=== PATIENT | female | born 2000 | race Caucasian/White ===

== ENCOUNTER 2024-03-30 17:06 | Observation (INO) | payer SELFPAY ==
[2024-03-30 17:30] VITALS: BP 115/78; PULSE 99; RESP 14; TEMP 37.1; O2SAT 100
--- OUTSIDE RECORDS SUMMARY | 2024-03-30 17:36 | XMS_ITS | Encounter Summary ---
Author Organization [facility] Address [address] [place] [address] Care Team Providers Care Science Education Professor Name Role Phone Montse Montiel MASTER BREWER Primary Care Provider [phone] Radha Griffin APRN Unavailable [phone] Rosalva Dize MD Unavailable [phone] Encounter Details Date Type Department Care Team (Latest Contact Info) Description 03/15/2022 Travel Social History Tobacco Use Types Packs/Day Years Used Date Smoking Tobacco: Never Smokeless Tobacco: Never Alcohol Use Standard Drinks/Week Comments Never 0 (1 standard drink = 0.6 oz pur e alcohol) Sex and Gender Information Value Date Recorded Sex Assigned at Not on file Gender Identity Not on file Sexual Orientation Not on file documented as of this encounter Plan of Treatment Not on file documented as of this encounter Visit Diagnoses Not on filedocumented in this encounter Care Teams Science Education Professor Relationship Specialty Start Date End Date Montse Montiel APRN [address] [place] [address] PCP - General Nurse Practitioner 02/06/22 Radha Griffin APRN [address] [place] [address] [place] [address] [place] [address] Nurse Practitioner Gastroenterology 02/06/22 Rosalva Diez MD [address] [place] [address] Gastroenterology 03/13/22 documented as of this encounter
--- OUTSIDE RECORDS SUMMARY | 2024-03-30 17:36 | XMS_ITS | Referral Summary ---
Author Organization [facility] Address [address] [place] [address] Care Team Providers Care Receiving Weigher Name Role Phone Montse Montiel KRYS Primary Care Provider [phone] Radha Griffin APRN Unavailable [phone] Rosalva Diez MD Unavailable [phone] Allergies No known active allergies Medications Medication Sig Dispensed Refills Start Date End Date Status ISIBLOOM 0.15-0.03 mg Tab TAKE 1 TABLET BY MOUTH EVERY DAY 05/26/2021 Active desvenlafaxine 50 mg Tb24 Take 50 mg by mouth Once Daily. Active traZODone (DESYREL) 50 mg tablet Take 50 mg by mouth Once Daily. Active Active Problems Problem Noted Date Diagnosed Date Nausea 02/06/2022 Overview (02/06/2022): Added automatically from request for surgery [id number] Upper abdominal pain 02/06/2022 Overview (02/06/2022): Added automatically from request for surgery [id number] Social History Tobacco Use Types Packs/Day Years Used Date Smoking Tobacco: Never Smokeless Tobacco: Never Alcohol Use Standard Drinks/Week Comments Never 0 (1 standard drink = 0.6 oz pur e alcohol) Sex and Gender Information Value Date Recorded Sex Assigned at Not on file Gender Identity Not on file Sexual Orientation Not on file Last Filed Vital Signs Vital Sign Reading Time Taken Comments Blood Pressure 118/82 10/11/2022 3:21 PM EDT Pulse 119 10/11/2022 3:21 PM EDT Temperature 36.9 ??C (98.4 ??F) 03/15/2022 11:08 AM E DT Respiratory Rate 18 10/11/2022 3:21 PM EDT Oxygen Saturation 100% 03/15/2022 2:15 PM EDT Inhaled Oxygen Concentration - - Weight 72.6 kg (160 lb) 10/11/2022 3:21 PM EDT Height 172.7 cm (5' 8 ) 10/11/2022 3:21 PM EDT Body Mass Index 24.33 10/11/2022 3:21 PM EDT Plan of Treatment Not on file Advance Directives * Full Code (Latest Code Status on File) Date Activated Date Inactivated Comments 03/12/2022 8:10 AM 03/12/2022 1:32 PM Care Teams Receiving Weigher Relationship Specialty Start Date End Date Montse Montiel APRN [address] [place] [address] PCP - General Nurse Practitioner 02/06/22 Radha Griffin APRN [address] [place] [address] [place] [address] [address] [place] [address] Nurse Practitioner Gastroenterology 02/06/22 Rosalva Diez MD [address] [place] [address] [address] [place] [address] Gastroenterology 03/13/22
--- OUTSIDE RECORDS SUMMARY | 2024-03-30 17:36 | XMS_ITS | Encounter Summary ---
Author Organization [facility] Address [address] [place] [id number] Care Team Providers Care Casket Assembler Name Role Phone Montse Montiel KRYS Primary Care Provider Radha Griffin APRN Unavailable [phone] Rosalva Diez MD Unavailable [phone] Reason for Referral * Diagnostic Testing (Routine) - Authorized Specialty Diagnoses / Procedures Referred By Contac t Referred To Contact Cardiology Diagnoses Syncope and collapse Procedures Tilt Table Study Courtney De La Vega DO [facility] [place] [address] [facility] Noninvasive Card [address] [place] [address] Referral ID Status Reason Start Date Expiration Date V isits Requested Visits Authorized [id number] Authorized 10/18/2023 10/17/2024 1 1 Encounter Details Date Type Department Care Team (Late st Contact Info) Description 10/18/2023 Transcribe Orders Centralized Scheduling [address] [place] [address] Courtney De La Vega DO [address] [place] [address] Syncope and collapse (Primary Dx) Social History Tobacco Use Types Packs/Day Years Used Date Smoking Tobacco: Never Smokeless Tobacco: Never Alcohol Use Standard Drinks/Week Comments Never 0 (1 standard drink = 0.6 oz pur e alcohol) Sex and Gender Information Value Date Recorded Sex Assigned at Not on file Gender Identity Not on file Sexual Orientation Not on file documented as of this encounter Plan of Treatment Scheduled Orders Name Type Priority Associated Diagnoses Orde r Schedule Tilt Table Study Non-invasive cardiology Routine Syncope and collapse 1 Occurrences starting 10/18/2023 until 10/17/2024 documented as of this encounter Visit Diagnoses Diagnosis Syncope and collapse- Primary documented in this encounter Care Teams Casket Assembler Relationship Specialty Start Date End Date Montse Montiel APRN [address] [place] [address] PCP - General Nurse Practitioner 02/06/22 Radha Griffin APRN [address] [place] [address] [place] [address] Nurse Practitioner Gastroenterology 02/06/22 Rosalva Diez MD [address] [place] [address] [address] [place], [place] [id number] Gastroenterology 03/13/22 documented as of this encounter
--- OUTSIDE RECORDS SUMMARY | 2024-03-30 17:36 | XMS_ITS | Clinical Summary ---
Author Organization [facility] Address [address] [place] [address] Care Team Providers Care Mercantile Reporter Name Role Phone Montse Montiel KRYS Primary Care Provider [phone] Radha Griffin APRN Unavailable [phone] Rosalva Diez MD Unavailable [phone] Allergies No known active allergies Medications Medication [...] (02/06/2022): Added automatically from request for surgery [id number] Upper abdominal pain 02/06/2022 Overview (02/06/2022): Added automatically from request for surgery [id number] Social History Tobacco Use Types Packs/Day Years [...] 10/11/2022 3:21 PM EDT Plan of Treatment Health Maintenance Due Date Last Done Comments CHLAMYDIA SCREEN 1999 HEP C SCREENING 1999 PAP SMEAR EVERY 3 YR (Cervic al Cancer Screen) 1999 ANNUAL WELLNESS EXAM 08/25/2002 DTAP/TDAP/TD VACCINE (1 - Tdap) 08/25/2018 INFLUENZA VACCINE (#1) 2024 HEP A VACCINE Aged Out No longer elig ible based on patient's age to complete this topic HIB VACCINE Aged Out No longer eligi ble based on patient's age to complete this topic ROTOVIRUS VACCINE Aged Out No longer eligible based on patient's age to complete this topic Advance Directives * Full Code (Latest Code Status on File) Date Activated Date Inactivated Comments 03/12/2022 8:10 AM 03/12/2022 1:32 PM Care Teams Mercantile Reporter Relationship Specialty Start Date End Date Montse Montiel APRN [address] [place] [address] PCP - General Nurse Practitioner 02/06/22 Radha Griffin APRN [address] [place] [address] [address] [facility] [address] [place] [address] Nurse Practitioner Gastroenterology 02/06/22 Rosalva Diez MD [address] [place] [address] [place] [address] Gastroenterology 03/13/22
--- OUTSIDE RECORDS SUMMARY | 2024-03-30 17:36 | XMS_ITS | Encounter Summary ---
Author Organization [facility] Address [address] [place] [address] Care Team Providers Care Collaborative Teacher Name Role Phone Montse Montiel KRYS Primary Care Provider [phone] Radha Griffin APRN Unavailable [phone] Rosalva Diez MD Unavailable [phone] Reason for Visit * Reason Comments Follow-up Encounter Details Date Type Department Care Team (Late st Contact Info) Description 04/10/2022 2:00 PM EST Office Visit [facility] [address] [place] [address], [address] [place] [phone] Rosalva Diez MD [address] [place] [address] Nausea (Primary Dx); Upper abdominal pain; Chronic idiopathic constipation Social History Tobacco Use Types Packs/Day Years Used Date Smoking Tobacco: Never Smokeless Tobacco: Never Alcohol Use Standard Drinks/Week Comments Never 0 (1 standard drink = 0.6 oz pur e alcohol) Sex and Gender Information Value Date Recorded Sex Assigned at Not on file Gender Identity Not on file Sexual Orientation Not on file documented as of this encounter Last Filed Vital Signs Vital Sign Reading Time Taken Comments Blood Pressure 109/79 04/10/2022 2:49 PM EST Pulse 105 04/10/2022 2:49 PM EST Temperature - - Respiratory Rate - - Oxygen Saturation - - Inhaled Oxygen Concentration - - Weight 67.6 kg (149 lb) 04/10/2022 2:49 PM EST Height 172.7 cm (5' 8 ) 04/10/2022 2:49 PM EST Body Mass Index 22.66 04/10/2022 2:49 PM EST documented in this encounter Progress Notes * Rosalva Diez MD - 04/10/2022 2:00 PM EST Subjective: Patient ID: Lupe Cedeño is an 21 y.o. female. Chief Complaint: Chief Complaint Patient presents with ??? Follow-up HPI Patient presents to clinic with cc of constipation. [place] stool 3-4 Occasional straining Upper abdominal pain and nausea better on periactin and acid suppression Past Medical History: Diagnosis Date ??? Anxiety Past Surgical History: Procedure Laterality Date ??? HX EGJ N/A 03/12/2022 EGD /C BIOPSY performed by Rosalva Diez MD at [facility] No family history on file. Social History Socioeconomic History ??? Marital status: Tobacco Use ??? Smoking status: Never ??? Smokeless tobacco: Never Substance and Sexual Activity ??? Alcohol use: Never ??? Drug use: Never No Known Allergies Current Outpatient Medications Medication Sig Dispense Refill ??? desvenlafaxine 50 mg Tb24 Take 50 mg by mouth Once Daily. ??? traZODone (DESYREL) 50 mg tablet Take 50 mg by mouth Once Daily. ??? omeprazole (PRILOSEC) [address] capsule Take 1 Capsule by mouth Once Daily. 90 Capsule 3 ??? cyproheptadine (PERIACTIN) 4 mg tablet Take 1 Tablet by mouth Three times a day. 270 Tablet 3 ??? FLUoxetine (PROZAC) 20 mg tablet Take 20 mg by mouth Once Daily. ??? ISIBLOOM 0.15-0.03 mg Tab TAKE 1 TABLET BY MOUTH EVERY DAY ??? hydrOXYzine pamoate (VISTARIL) 25 mg capsule Take 1 Cap by mouth Every 6 hours as needed for Itching. 30 Cap 0 No current facility-administered medications for this visit. Review of Systems Objective: BP 109/79 Pulse 105 Ht 5' 8 (172.7 cm) Wt 67.6 kg (149 lb) BMI 22.66 kg/m?? Physical Exam HENT: Head: Normocephalic. Mouth/Throat: Mouth: Mucous membranes are moist. Cardiovascular: Rate and Rhythm: Normal rate and regular rhythm. Pulses: Normal pulses. Heart sounds: Normal heart sounds. Pulmonary: Effort: Pulmonary effort is normal. Breath sounds: Normal breath sounds. Abdominal: General: Abdomen is flat. Bowel sounds are normal. Palpations: Abdomen is soft. Musculoskeletal: General: Normal range of motion. Cervical back: Normal range of motion. Skin: General: Skin is warm. Neurological: General: No focal deficit present. Psychiatric: Mood and Affect: Mood normal. Procedures Assessment: 1. Nausea 2. Upper abdominal pain 3. Chronic idiopathic constipation Plan: Miralax every other day Continue acid suppression and periactin documented in this encounter Plan of Treatment Not on file documented as of this encounter Visit Diagnoses Diagnosis Nausea- Primary Nausea alone Upper abdominal pain Abdominal pain, other specified site Chronic idiopathic constipation Unspecified constipation documented in this encounter Care Teams Collaborative Teacher Relationship Specialty Start Date End Date Montse Montiel APRN [address] [place], [place] [id number] PCP - General Nurse Practitioner 02/06/22 Radha Griffin APRN [address] [place] [address] Nurse Practitioner Gastroenterology 02/06/22 Rosalva Diez MD [address] [place] [address] Gastroenterology 03/13/22 documented as of this encounter
--- OUTSIDE RECORDS SUMMARY | 2024-03-30 17:36 | XMS_ITS | Encounter Summary ---
Author Organization [facility] Address [address] [place] [address] Care Team Providers Care Canvas Cutter Name Role Phone Montse Montiel GRINDING MACHINE OPERATOR PORTABLE Primary Care Provider [phone] Radha Griffin APRN Unavailable [phone] Rosalva Diez MD Unavailable [phone] Encounter Details Date Type Department Care Team (Latest Contact Info) Description 10/11/2022 Travel Social History Tobacco Use Types Packs/Day [...] on filedocumented in this encounter Care Teams Canvas Cutter Relationship Specialty Start Date End Date Montse Montiel APRN [address] [place] [address] PCP - General Nurse Practitioner 02/06/22 Radha Griffin APRN [address] [place] [address] [place] [address] [place] [address] Nurse Practitioner Gastroenterology 02/06/22 Rosalva Diez MD [address] [place] [address] Gastroenterology 03/13/22 documented as of this encounter
--- OUTSIDE RECORDS SUMMARY | 2024-03-30 17:36 | XMS_ITS | Encounter Summary ---
Author Organization [facility] Address [address] [place] [address] Care Team Providers Care Political Science Chair Name Role Phone Montse Montiel GASOLINE PLANT OPERATOR Primary Care Provider [phone] Radha Griffin APRN Unavailable [phone] Rosalva Diez MD Unavailable [phone] Encounter Details Date Type Department Care Team (Latest Contact Info) Description 04/10/2022 Travel Social History Tobacco Use Types Packs/Day [...] on filedocumented in this encounter Care Teams Political Science Chair Relationship Specialty Start Date End Date Montse Montiel APRN [address] [place] [address] PCP - General Nurse Practitioner 02/06/22 Radha Griffin APRN [address] [place] [address] [place] [address] [place] [address] Nurse Practitioner Gastroenterology 02/06/22 Rosalva Diez MD [address] [place] [address] Gastroenterology 03/13/22 documented as of this encounter
--- OUTSIDE RECORDS SUMMARY | 2024-03-30 17:36 | XMS_ITS | Encounter Summary ---
Author Organization [facility] Address [address] [place] [address] Care Team Providers Care Gelatin Plant Supervisor Name Role Phone Montse Montiel KRYS Primary Care Provider [phone] Radha Griffin APRN Unavailable [phone] Rosalva Diez MD Unavailable [phone] Reason for Visit * Reason Comments Follow-up 5 month follow up Encounter Details Date Type Department Care Team (Late st Contact Info) Description 10/11/2022 3:30 PM EDT Office Visit [facility] [address] [place] [address] [place] [phone] Rosalva Diez MD [address] [place] [address] Upper abdominal pain (Primary Dx) Social History Tobacco Use Types [...] Pulse 119 10/11/2022 3:21 PM EDT Temperature - - Respiratory Rate 18 10/11/2022 3:21 PM EDT Oxygen Saturation - - Inhaled Oxygen Concentration - - Weight 72.6 kg (160 lb) 10/11/2022 3:21 PM EDT Height 172.7 cm (5' 8 ) 10/11/2022 3:21 PM EDT Body Mass Index 24.33 10/11/2022 3:21 PM EDT documented in this encounter Progress Notes * Rosalva Diez MD - 10/11/2022 3:30 PM EDT Subjective Subjective: Patient ID: Lupe Cedeño is an 22 y.o. female. Chief Complaint: Chief Complaint Patient presents with ??? Follow-up 5 month follow up HPI Patient presents to clinic with cc of abdominal pain Some improvement in abdominal pain Hurts worse when anxious No known triggers No longer taking periactin No nausea No weight loss No known food triggers EGD small hiatal hernia Path gastritis Past Medical History: Diagnosis Date ??? Anxiety Past Surgical History: Procedure Laterality Date ??? HX EGJ N/A 03/12/2022 EGD /C [place]SY performed [place] [facility]alva [place]Dez [place] [facility] No family history on file. Social History Socioeconomic History ??? Marital status: Tobacco Use ??? Smoking status: Never ??? Smokeless tobacco: Never Substance and Sexual Activity ??? Alcohol use: Never ??? Drug use: Never No Known Allergies Current Outpatient Medications Medication Sig Dispense Refill ??? hyoscyamine (LEVSIN) 0.125 mg SL tablet Take 1 Tablet sublingually Every 4 hours as needed for Cramping. 90 Tablet 3 ??? desvenlafaxine 50 mg Tb24 Take 50 mg by mouth Once Daily. ??? traZODone (DESYREL) 50 mg tablet Take 50 mg by mouth Once Daily. ??? ISIBLOOM 0.15-0.03 mg Tab TAKE 1 TABLET BY MOUTH EVERY DAY No current facility-administered medications for this visit. Review of Systems Objective Objective: BP 118/82 Pulse (!) 119 Resp 18 Ht 5' 8 (172.7 cm) Wt 72.6 kg (160 lb) BMI 24.33 kg/m?? Physical Exam HENT: Head: Normocephalic. Mouth/Throat: [...] present. Psychiatric: Mood and Affect: Mood normal. CMP Lab Results Component Value Date SODIUM 136 03/15/2022 POTASSIUM 4.3 03/15/2022 CHLORIDE 106 03/15/2022 CO2 24 03/15/2022 ANIONGAP 6 03/15/2022 GLUCOSE 91 03/15/2022 CREATININE 0.8 03/15/2022 BUN 17 03/15/2022 CALCIUM 9.1 03/15/2022 PROTEINTOTAL 7.4 03/15/2022 ALBUMIN 4.1 03/15/2022 TBILIRUBIN 0.4 03/15/2022 ALP 36 (L) 03/15/2022 AST 19 03/15/2022 ALTSGPT 11 03/15/2022 OSMOLALITY 273 03/15/2022 AGRATIO 1.2 03/15/2022 BC 21 (H) 03/15/2022 ESTIMATEDGFR 89 03/15/2022 CBC Lab Results Component Value Date WBC 5.6 03/15/2022 RBC 4.27 03/15/2022 HGB 12.2 03/15/2022 HCT 37.4 03/15/2022 MCV 87.5 03/15/2022 MCHC 32.7 03/15/2022 MCH 28.6 03/15/2022 RDW 12.8 03/15/2022 MPV 8.0 03/15/2022 PLATELETCNT 280 03/15/2022 DIFFERTYPE Auto 03/15/2022 NEUTROPHILS 63.0 03/15/2022 LYMPHOCYTES 27.5 03/15/2022 MONOCYTES 7.2 03/15/2022 EOSINOPHILS 1.9 03/15/2022 BASOPHILS 0.4 03/15/2022 NEUTROABS 3.5 03/15/2022 LYMPHOCYTESA 1.5 03/15/2022 MONOCYTESABS 0.4 03/15/2022 EOSINOPHILSA 0.1 03/15/2022 BASOPHILSABS 0.0 03/15/2022 Assessment: 1. Upper abdominal pain hyoscyamine (LEVSIN) 0.125 mg SL tablet Plan: Trial of hyoscyamine documented in this encounter Plan of Treatment Not on file documented as of this encounter Visit Diagnoses Diagnosis Upper abdominal pain- Primary Abdominal pain, other specified site documented in this encounter Care Teams Gelatin Plant Supervisor Relationship Specialty Start Date End Date Montse Montiel APRN [address] [place], [place] [id number] PCP - General Nurse Practitioner 02/06/22 Radha Griffin APRN [address] [place] [address] [place] [address] Nurse Practitioner Gastroenterology 02/06/22 Rosalva Diez MD [address] [place] [address] Gastroenterology 03/13/22 documented as of this encounter
--- OUTSIDE RECORDS SUMMARY | 2024-03-30 17:37 | XMS_ITS | Encounter Summary ---
Author Organization [facility] Address [address] [place] [address] Care Team Providers Care Hand Shaker Name Role Phone Unavailable Primary Care Provider Unavailabl e Encounter Details Date Type Department Care Team (Late st Contact Info) Description 01/13/2021 Orders Only Lab [address] [facility] [place] [address] Sanna Peguero, PROCESSING ASSOCIATE [address] [place] [address] Cough with exposure to severe acute respiratory syndrome coronavirus 2 (SARS-CoV-2) (Primary Dx) Social History Tobacco Use Types Packs/Day Years Used Date Smoking Tobacco: Never Smokeless Tobacco: Never Sex and Gender Information Value Date Recorded Sex Assigned at Not on file Gender Identity Not on file Sexual Orientation Not on file COVID-19 Exposure Response Date Recorded In the last month, have you been in contact with someone who was confirmed or suspected to have Coronavirus / COVID-19? Unable to assess 01/13/2021 2:41 AM EDT documented as of this encounter Plan of Treatment Not on file documented as of this encounter Results * SARS-CoV-2, QL, PCR (Routine/Outpatient) (01/17/2021 3:01 PM EDT) SARS-CoV-2 RNA Undetected Undetected 01/18/2021 3:22 AM EDT [facility] Comment: Testing was performed using the [employer] Kim Direct. Fact sheets for this Emergency Use Authorization (EUA) assay can be found at the following links: ?? For Healthcare Providers: https://www.fda.gov/media/491396/download ?? For Patients: https://www.fda.gov/media/951056/download Test Performed by: [facility],[address] [place] [address], Home Demonstration Agent: Alex Castillo D.O.; ??CLIA#: [id number] Throat (Throat) 01/17/2021 3 :01 PM EDT 01/17/2021 11:14 PM EDT Narrative [facility] - 01/18/2021 3:22 AM EDT Symptomatic?->No Indications (select all that apply)->Asymptomatic - community/general population Was specimen collected by a [facility] steam and gas turbines assembler?->Yes NO KNOWN ALLERGIES Sanna Peguero PROCESSING ASSOCIATE MICROBIOLOGY - GENER AL ORDERABLES Performing Organization Address City/State/[facility] Co de Phone Number [facility] [address] LAB [address] [place] [address] documented in this encounter Visit Diagnoses Diagnosis Cough with exposure to severe acute respiratory syndrome coronavirus 2 (SARS-CoV-2)- Primary Cough with exposure to severe acute respiratory syndrome coronavirus 2 (SARS-CoV-2) documented in this encounter
--- OUTSIDE RECORDS SUMMARY | 2024-03-30 17:37 | XMS_ITS | Encounter Summary ---
Author Organization [facility] Address [address] [place] [address] Care Team Providers Care Mva Reactor Operator Head Name Role Phone Unavailable Primary Care Provider Unavailabl e Encounter Details Date Type Department Care Team (Latest Contact Info) Description 01/13/2021 Travel Social History Tobacco Use Types Packs/Day [...]
--- OUTSIDE RECORDS SUMMARY | 2024-03-30 17:37 | XMS_ITS | Encounter Summary ---
Author Organization [facility] Address [address] [place] [address] Care Team Providers Care Rn Transitional Care Name Role Phone Unavailable Primary Care Provider Unavailabl e Encounter Details Date Type Department Care Team (Latest Contact Info) Description 01/13/2021 2:42 AM EDT - 01/13/2021 11:59 PM EDT Hospital Encounter Lab [address] [place] [address] Antwan Prabhakar MD [address] [place] [id number] Encounter for screening laboratory testing for COVID-19 virus Discharge Disposition: Home or Self Care Social History Tobacco Use Types Packs/Day Years [...] AM EDT documented as of this encounter Medications at Time of Discharge Medication Sig Dispensed Refills Start Date End Date hydrOXYzine pamoate (VISTARIL) 25 mg capsuleIndications:Urtica rose Take 1 Cap by mouth Every 6 hours as needed for Itching. 30 Cap 12/29/2017 10/11/2022 documented as of this encounter Plan of Treatment Not on file documented as of this encounter Procedures Procedure Name Priority Date/Time Associated Diagnosis Comments SARS-COV-2, QL, PCR (ROUTINE/OUTPATIENT ) Routine 01/13/2021 2:42 AM EDT Encounter for screening laboratory testing for COVID-19 virus documented in this encounter Results * SARS-CoV-2, QL, PCR (Routine/Outpatient) (01/13/2021 2:42 AM EDT) SARS-CoV-2 RNA Undetected Undetected 01/13/2021 8:45 AM EDT [facility] Comment: Testing was performed using the Elliptic Kim Direct. Fact sheets for this Emergency Use Authorization (EUA) assay can be found at the following links: ?? For Healthcare Providers: https://www.fda.gov/media/913446/download ?? For Patients: https://www.fda.gov/media/497205/download Test Performed by: [facility],[address] [place] [address], Other Spatial Scientist: Alex Castillo D.O.; ??CLIA#: [id number] Throat (Throat) 01/13/2021 2 :42 AM EDT 01/13/2021 2:51 AM EDT Narrative [facility] - 01/13/2021 8:45 AM EDT Symptomatic?->No Indications (select all that apply)->Asymptomatic - community/general population Was specimen collected by a [facility] produce team lead?->No NO KNOWN ALLERGIES Antwan Prabhakar MD MICROBIOLOGY - GENER AL ORDERABLES [facility] [address] [place] [address] LAB [address] [facility] [address] documented in this encounter Visit Diagnoses Diagnosis Encounter for screening laboratory testing for COVID-19 virus documented in this encounter
--- OUTSIDE RECORDS SUMMARY | 2024-03-30 17:37 | XMS_ITS | Encounter Summary ---
Author Organization [facility] Address [address] [place] [address] Care Team Providers Care Senior Software Engineer Analytics Name Role Phone Unavailable Primary Care Provider Unavailabl e Encounter Details Date Type Department Care Team (Late st Contact Info) Description 01/17/2021 3:01 PM EDT - 01/17/2021 11:59 PM EDT Hospital Encounter [facility] [address] [place] [id number] Sanna Peguero, CLAIM AUDITOR [address] [place] [address] Cough with exposure to severe acute respiratory syndrome coronavirus 2 (SARS-CoV-2) Discharge Disposition: Home or Self Care Social [...] Comments SARS-COV-2, QL, PCR (ROUTINE/OUTPATIENT ) Routine 01/17/2021 3:01 PM EDT Cough with exposure to severe acute respiratory syndrome coronavirus 2 (SARS-CoV-2) documented in this encounter Results * SARS-CoV-2, QL, PCR (Routine/Outpatient) (01/17/2021 3:01 PM EDT) SARS-CoV-2 RNA Undetected Undetected 01/18/2021 3:22 AM EDT [facility] Comment: Testing was performed using the OVGuide Kim Direct. Fact sheets for this Emergency Use Authorization (EUA) assay can be found at the following links: ?? For Healthcare Providers: https://www.fda.gov/media/552498/download ?? For Patients: https://www.fda.gov/media/979790/download Test Performed by: [facility],[address] [place] [address], Firer Watertender: Alex Castillo D.O.; ??CLIA#: [id number] Throat (Throat) 01/17/2021 3 :01 PM EDT 01/17/2021 11:14 PM EDT Narrative [facility] - 01/18/2021 3:22 AM EDT Symptomatic?->No Indications (select all that apply)->Asymptomatic - community/general population Was specimen collected by a [facility] endless steamer tender?->Yes NO KNOWN ALLERGIES Sanna Peguero CLAIM AUDITOR MICROBIOLOGY - GENER AL ORDERABLES [facility] [address] LAB [address] [place] [address] documented in this encounter Visit Diagnoses Diagnosis Cough with exposure to severe acute respiratory syndrome coronavirus 2 (SARS-CoV-2) documented in this encounter
--- OUTSIDE RECORDS SUMMARY | 2024-03-30 17:37 | XMS_ITS | Encounter Summary ---
Author Organization [facility] Address [address] [place] [address] Care Team Providers Care Spiral Machine Operator Name Role Phone Unavailable Primary Care Provider Unavailabl e Reason for Visit * Reason Comments Rash bumps all over, itc jules >yesterday Encounter Details Date Type Department Care Team (Late st Contact Info) Description 12/29/2017 12:15 PM EDT Office Visit [facility] [address] [place] [address] Aram Mcgraw Jr., GRAINING MACHINE OPERATOR [address] [place] [address] Urticaria (Primary Dx) Social History Tobacco Use Types Packs/Day Years Used Date Smoking Tobacco: Never Smokeless Tobacco: Never Sex and Gender Information Value Date Recorded Sex Assigned at Not on file Gender Identity Not on file Sexual Orientation Not on file documented as of this encounter Last Filed Vital Signs Vital Sign Reading Time Taken Comments Blood Pressure 112/69 12/29/2017 1:17 PM EDT Pulse 83 12/29/2017 1:17 PM EDT Temperature 37 ??C (98.6 ??F) 12/29/2017 1:17 PM EDT Respiratory Rate 14 12/29/2017 1:17 PM EDT Oxygen Saturation 100% 12/29/2017 1:17 PM EDT Inhaled Oxygen Concentration - - Weight 62.1 kg (136 lb 12.8 oz) 12/29/2017 1:17 PM EDT Height 170.2 cm (5' 7 ) 12/29/2017 1:17 PM EDT Body Mass Index 21.43 12/29/2017 1:17 PM EDT Body Mass Index Percentile 50.77% 12/29/2017 1:1 7 PM EDT Growth Chart: [facility] (Girls, 2- 20 Years) documented in this encounter Patient Instructions * Patient Instructions* Aram Mcgraw Zay Estes, GRAINING MACHINE OPERATOR - 12/29/2017 1:32 PM EDT Images from the original note were not included. Aveeno baths Benadryl prn for itching. Follow up prn Information on the above diagnosis was given to the patient. Rx: Prednisone and Vistaril Urticaria WHAT YOU SHOULD KNOW: Urticaria is also called hives. Hives can change size and shape, and appear anywhere on your skin. They can be mild or severe and last from a few minutes to a few days. INSTRUCTIONS: Signs and symptoms of a severe allergic reaction: Hives may be an early sign of a severe allergic reaction called anaphylaxis. Anaphylaxis is an emergency. Seek care immediately if you feel dizzy, your mouth tingles, or have trouble swallowing or breathing. Medicines: ?? Antihistamines: This medicine may be given to help decrease itching. It can be bought without a doctor's order. ?? Steroids: This medicine may be given to decrease redness, pain, and swelling. ?? Take your medicine as directed. Call your primary healthcare provider if you think your medicineis not helping or if you have side effects. Tell him if you are allergic to any medicine. Keep a list of the medicines, vitamins, and herbs you take. Include the amounts, and when and why you take them. Bring the list or the pill bottles to follow-up visits. Carry your medicine list with you in case of an emergency. Self-care: ?? Cool your skin: This may help decrease your itching. Apply a cool pack to your hives. Dip a handtowel in cool water, wring it out, and place it on your hives. You may also soak your skin in a cool oatmeal bath. ?? Do not rub your hives: This can irritate your skin and cause more hives. ?? Carry an emergency kit: Ask your primary healthcare provider if you need to carry an emergency kit in case you have a severe allergic reaction. The kit contains a medicine called epinephrine. You can give it to yourself as a shot if you have a severe allergic reaction. Your primary healthcare provider will teach you and your family when and how to give epinephrine shots. Always carry your anaphylaxis kit with you. Check the expiration date on the kit every month and replace it before it expires. ?? Wear loose clothing: Tight clothes may irritate your skin and cause more hives. ?? Keep a diary: Write down everything you eat, drink, or apply to your skin for 3 weeks. Write down stressful events. Write down what you were doing right before your hives started. ?? Manage stress: Stress may trigger hives, or make them worse. Learn new ways to relax, such as deep breathing. Follow up with your primary healthcare provider or senior medical billing specialist as directed: Write down your questions so you remember to ask them during your visits. Contact your primary healthcare provider or senior medical billing specialist if: ?? You have a fever. ?? Your skin still itches 24 hours after you take your medicine. ?? You still have hives after 7 days. ?? Your joints are painful and swollen. ?? You used your emergency kit. ?? You have questions or concerns about your condition or care. Return to the emergency department if: ?? You are dizzy. ?? Your mouth tingles. ?? You have trouble swallowing or breathing because your lips, tongue, or throat are swollen. ?? Your heart is beating faster than it normally does. ?? You feel like you are going to faint. ?? You have cramping or severe pain in your abdomen. ?? 2013 [employer]. Information is for End User's use only and may not be sold, redistributed or otherwise used for commercial purposes. All illustrations and images included in CareNotes?? are the copyrighted property of [employer] or [employer]. The above information is an motel maid only. It is not intended as medical advice for individual conditions or treatments. Talk to your doctor, nurse or pharmacist before following any medical regimen to see if it is safe and effective for you. documented in this encounter Progress Notes * Aram Mcgraw Jr., GRAINING MACHINE OPERATOR - 12/29/2017 12:15 PM EDT [facility] Subjective: Patient ID: Laurie Villareal is an 17 y.o. female. Chief Complaint: Chief Complaint Patient presents with ??? Rash bumps all over, itching >yesterday Rash This is a new problem. The current episode started yesterday. The problem is unchanged. The rash isdiffuse. The rash is characterized by redness and itchiness. It is unknown if there was an exposureto a precipitant. Pertinent negatives include no cough, fever or shortness of breath. The treatmentprovided no relief. There is no history of allergies, asthma, eczema or varicella. no past medical history. Family history noncontributory. No surgical history. No past medical history on file. No past surgical history on file. No family history on file. Social History Substance Use Topics ??? Smoking status: Never Smoker ??? Smokeless tobacco: Never Used ??? Alcohol use Not on file No Known Allergies Outpatient Medications at End Visit as of 12/29/2017 Disp Refills Start End predniSONE (DELTASONE) 20 mg tablet (Taking) 30 Tab 0 12/29/2017 01/13/2018 Si mg for 5 day, 40 mg for 5 days, 20 mg for 5 days Number of times this order has been changed since signin Order Audit [place] hydrOXYzine pamoate (VISTARIL) 25 mg capsule (Taking) 30 Cap 0 12/29/2017 Sig - Route: Take 1 Cap by mouth Every 6 hours as needed for Itching. - Oral Number of times this order has been changed since signin Order Audit [place] Review of Systems Constitutional: Negative for fever. Respiratory: Negative for cough and shortness of breath. Skin: Positive for rash. All other systems reviewed and are negative. Objective: BP 112/69 Pulse 83 Temp 98.6 ??F (37 ??C) (Oral) Resp 14 Ht 5' 7 (170.2 cm) Wt 62.1 kg (136 lb 12.8 oz) LMP 12/05/2017 SpO2 100% BMI 21.43 kg/m?? Physical Exam Constitutional: She is oriented to person, place, and time. She appears well- developed and well-nourished. No distress. HENT: Head: Normocephalic and atraumatic. Right Ear: External ear normal. Left Ear: External ear normal. Nose: Nose normal. Mouth/Throat: Oropharynx is clear and moist. No oropharyngeal exudate. Eyes: Conjunctivae are normal. Pupils are equal, round, and reactive to light. Neck: Neck supple. Cardiovascular: Normal rate, regular rhythm, normal heart sounds and intact distal pulses. Exam reveals no gallop and no friction rub. No murmur heard. Pulmonary/Chest: Effort normal and breath sounds normal. No respiratory distress. She has no wheezes. She has no rales. Neurological: She is alert and oriented to person, place, and time. Skin: Skin is warm and dry. Rash noted. Rash is maculopapular and urticarial. She is not diaphoretic. No erythema. No pallor. Urticarial lesions noted on the upper and lower extremities Psychiatric: She has a normal mood and affect. Her behavior is normal. Judgment and thought contentnormal. Nursing note and vitals reviewed. Procedures Assessment: 1. Urticaria predniSONE (DELTASONE) 20 mg tablet dexamethasone (DECADRON) injection 8 mg hydrOXYzine pamoate (VISTARIL) 25 mg capsule Plan: 1. Urticaria Aveeno baths Follow up in 3-5 days if there is no improvement. Follow up prn Information on the above diagnosis was given to the patient. Rx: Vistaril and prednisone Skin moisturizer. Tylenol or Ibuprofen for pain, fever Watch for signs of fever or worsening of the rash. - predniSONE (DELTASONE) 20 mg tablet; 60 mg for 5 day, 40 mg for 5 days, 20 mg for 5 days Dispense: 30 Tab; Refill: 0 - dexamethasone (DECADRON) injection 8 mg; Administer 2 mL intramuscularly One time only. - hydrOXYzine pamoate (VISTARIL) 25 mg capsule; Take 1 Cap by mouth Every 6 hours as needed for Itching. Dispense: 30 Cap; Refill: 0 * Kayla Go LPN - 12/29/2017 12:15 PM EDT Allergies and two patient identifiers verified. Patient given 8mg decadron (4mg decadron per 1ml) injection per orders of provider for rash. Site: Right buttock No bleeding, redness or edema noted at injection site. Patient tolerates without incident. Medication education given with understanding voiced. Advised to wait 15 minutes to monitor for injection reaction, understanding voiced. No acute distress noted at this time. Will continue to monitor. Patient was unable/unwilling to wait for medication given to be re-assessed. Instructed patient to call if any issues or return if worsen. documented in this encounter Plan of Treatment Not on file documented as of this encounter Visit Diagnoses Diagnosis Urticaria- Primary Urticaria, unspecified documented in this encounter Administered Medications Inactive Administered Medications - up to 3 most recent administrations Medication Order MAR Action Action Date Dose Rate Site dexamethasone (DECADRON) injection 8 mg 8 mg, Intramuscular, ONE TIME ONLY, 1 dose, On 12/29/17 at 1345, Routine Given 12/29/2017 1:44 PM EDT 8 mg Right Buttock documented in this encounter
--- OUTSIDE RECORDS SUMMARY | 2024-03-30 17:37 | XMS_ITS | Encounter Summary ---
Author Organization [facility] Address [address] [place] [address] Care Team Providers Care Clinical Esthetician Name Role Phone Montse Montiel ADVERTISING COPY WRITER Primary Care Provider [phone] Radha Griffin ADVERTISING COPY WRITER Unavailable [phone] Encounter Details Date Type Department Care Team (Latest Contact Info) Description 03/10/2022 2:00 PM EDT - 03/10/2022 11:59 PM EDT Hospital Encounter [facility] [address] [place] [address] Rosalva Diez MD [address] [place], [place] [id number] Nausea; Upper abdominal pain; Globus sensation Discharge Disposition: Home or Self Care Social History Tobacco Use Types Packs/Day Years Used Date Smoking Tobacco: Never Smokeless Tobacco: Never Sex and Gender Information Value Date Recorded Sex Assigned at Not on file Gender Identity Not on file Sexual Orientation Not on file documented as of this encounter Medications at Time of Discharge Medication Sig Dispensed Refills Start Date End Date ISIBLOOM 0.15-0.03 mg Tab TAKE 1 TABLET BY MOUTH EVERY DAY 05/26/2021 omeprazole (PRILOSEC) [address] capsuleIndications:Nausea ,Upper abdominal pain,Nausea,Upper abdominal pain Take 1 Capsule by mouth Once Daily. 90 Capsule 3 03/12/2022 10/11/2022 cyproheptadine (PERIACTIN) 4 mg tabletIndications:Nausea, Upper abdominal pain,Nausea,Upper abdominal pain Take 1 Tablet by mouth Three times a day. 270 Tablet 3 03/12/2022 10/11/2022 FLUoxetine (PROZAC) 20 mg tablet Take 20 mg by mouth Once Daily. 10/11/2022 ondansetron (ZOFRAN-ODT) 4 mg disintegrating tabletIndications:Nausea, Upper abdominal pain Take 1 Tablet by mouth Twice a day as needed for Nausea for up to 30 days. 60 Tablet 02/06/2022 03/12/2022 omeprazole (PRILOSEC) [address] capsuleIndications:Nausea ,Upper abdominal pain Take 1 Capsule by mouth Once Daily for 30 days. 30 Capsule 3 02/06/2022 03/12/2022 hydrOXYzine pamoate (VISTARIL) 25 mg capsuleIndications:Urtica rose Take 1 Cap by mouth Every 6 hours as needed for Itching. 30 Cap 12/29/2017 10/11/2022 documented as of this encounter Plan of Treatment Not on file documented as of this encounter Procedures Procedure Name Priority Date/Time Associated Diagnosis Comments SARS-COV-2, QL, PCR (ROUTINE/OUTPATIENT ) Routine 03/10/2022 2:04 PM EDT Nausea Upper abdominal pain Globus sensation documented in this encounter Results * SARS-CoV-2, QL, PCR (Routine/Outpatient) (03/10/2022 2:04 PM EDT) SARS-CoV-2 RNA Undetected 03/11/2022 5:12 AM EDT [facility] Comment: Testing was performed using the Quidel Kim Direct. Fact sheets for this Emergency Use Authorization (EUA) assay can be found at the following links: ?? For Healthcare Providers: https://www.fda.gov/media/899198/download ?? For Patients: https://www.fda.gov/media/968124/download Test Performed by: [facility],[address] [place] [address], Utilization Review Nurse: Alex Castillo D.O.; ??CLIA#: [id number] Throat (Throat) 03/10/2022 2 :04 PM EDT 03/10/2022 10:00 PM EDT Narrative [facility] - 03/11/2022 5:12 AM EDT Symptomatic?->No Indications (select all that apply)->Pre-op/ planned procedure NO KNOWN ALLERGIES Radha Griffin APRN MICROBIOLOGY - GENER AL ORDERABLES Performing Organization Address City/State/[facility] [[email or web address]] Co de Phone Number [facility] [address] [place] [address] [facility] [address] [place] [address] documented in this encounter Visit Diagnoses Diagnosis Nausea Nausea alone Upper abdominal pain Abdominal pain, other specified site Globus sensation Gastrointestinal malfunction arising from mental factors documented in this encounter Care Teams Clinical Esthetician Relationship Specialty Start Date End Date Montse Montiel APRN [address] [place] [id number] PCP - General Nurse Practitioner 02/06/22 Radha Griffin APRN [address] [place] [address] [address] [facility] [address] [place] [address] Nurse Practitioner Gastroenterology 02/06/22 documented as of this encounter
--- OUTSIDE RECORDS SUMMARY | 2024-03-30 17:37 | XMS_ITS | Encounter Summary ---
Author Organization [facility] Address [address] [place] [address] Care Team Providers Care Call Specialist Name Role Phone Unavailable Primary Care Provider Unavailabl e Encounter Details Date Type Department Care Team (Latest Contact Info) Description 06/14/2020 Travel Social History Tobacco Use Types Packs/Day [...] or suspected to have Coronavirus / COVID-19? Yes 06/14/2020 2:07 PM EST documented as of this encounter Plan of Treatment Not on file documented as of this encounter Visit Diagnoses Not on filedocumented in this encounter
--- OUTSIDE RECORDS SUMMARY | 2024-03-30 17:37 | XMS_ITS | Encounter Summary ---
Author Organization [facility] Address [address] [place] [address] Care Team Providers Care Bottle Assembler Name Role Phone Unavailable Primary Care Provider Unavailabl e Encounter Details Date Type Department Care Team (Latest Contact Info) Description 01/12/2021 Transcribe Orders Laboratory Specimen [address] [place] [address] Antwan Prabhakar MD [address] [place], [place] [id number] Encounter for screening laboratory testing for COVID-19 virus (Primary Dx) Social History Tobacco Use Types [...] or suspected to have Coronavirus / COVID-19? No / Unsure 12/24/2020 5:36 PM EDT documented as of this encounter Plan of Treatment Not on file documented as of this encounter Results * SARS-CoV-2, QL, PCR (Routine/Outpatient) (01/13/2021 2:42 AM EDT) SARS-CoV-2 RNA Undetected Undetected 01/13/2021 8:45 AM EDT [facility] Comment: Testing was performed using the Quidel Kim Direct. Fact sheets for this Emergency Use Authorization (EUA) assay can be found at the following links: ?? For Healthcare Providers: https://www.fda.gov/media/512357/download ?? For Patients: https://www.fda.gov/media/585723/download Test Performed by: [facility],[address] [place] [address], Deep Fryer Assembler: Alex Castillo D.O.; ??CLIA#: [id number] Throat (Throat) 01/13/2021 2 :42 AM EDT 01/13/2021 2:51 AM EDT Narrative [facility] - 01/13/2021 8:45 AM EDT Symptomatic?->No Indications (select all that apply)->Asymptomatic - community/general population Was specimen collected by a [facility] hourly team members?->No NO KNOWN ALLERGIES Antwan Prabhakar MD MICROBIOLOGY - GENER AL ORDERABLES [facility] [address] [place] [address] [place] [address]. [place] [address] documented in this encounter Visit Diagnoses Diagnosis Encounter for screening laboratory testing for COVID-19 virus- Primary Encounter for screening laboratory testing for COVID-19 virus documented in this encounter
--- OUTSIDE RECORDS SUMMARY | 2024-03-30 17:37 | XMS_ITS | Encounter Summary ---
Author Organization [facility] Address [address] [place] [address] Care Team Providers Care Retail Department Supervisor Name Role Phone Unavailable Primary Care Provider Unavailabl e Reason for Visit * Reason Comments Blood Sugar Problem had episode yesterda y Encounter Details Date Type Department Care Team (Late st Contact Info) Description 07/02/2021 4:20 PM EST Office Visit [facility] [address] [place] [id number] Eduar Olson, FARM MANAGER [address] [place] [address] [address] [place] [address] Acute cystitis with hematuria (Primary Dx); Light headed Social History Tobacco Use Types Packs/Day Years Used Date Smoking Tobacco: Never Smokeless Tobacco: Never Sex and Gender Information Value Date Recorded Sex Assigned at Not on file Gender Identity Not on file Sexual Orientation Not on file documented as of this encounter Last Filed Vital Signs Vital Sign Reading Time Taken Comments Blood Pressure 110/78 07/02/2021 5:58 PM EST Pulse 105 07/02/2021 5:58 PM EST Temperature 37 ??C (98.6 ??F) 07/02/2021 5:58 PM EST Respiratory Rate 18 07/02/2021 5:58 PM EST Oxygen Saturation 100% 07/02/2021 5:58 PM EST Inhaled Oxygen Concentration - - Weight 63 kg (139 lb) 07/02/2021 5:58 PM EST Height 172.7 cm (5' 8 ) 07/02/2021 5:58 PM EST Body Mass Index 21.13 07/02/2021 5:58 PM EST documented in this encounter Patient Instructions * Patient Instructions* Eduar Olson, FARM MANAGER - 07/02/2021 4:20 PM EST Images from the original note were not included. Urinary Tract Infection in Older Adults WHAT YOU NEED TO KNOW: A urinary tract infection (UTI) is caused by bacteria that get inside your urinary tract. Your urinary tract includes your kidneys, ureters, bladder, and urethra. Urine is made in your kidneys, and it flows from the ureters to the bladder. Urine leaves the bladder through the urethra. A UTI is morecommon in your lower urinary tract, which includes your bladder and urethra. DISCHARGE INSTRUCTIONS: Return to the emergency department if: ?? You are urinating very little or not at all. ?? You are vomiting. ?? You have a high fever with shaking chills. ?? You have side or back pain that gets worse. Call your doctor if: ?? You have a fever. ?? You are a woman and you have increased white or yellow discharge from your vagina. ?? You do not feel better after 2 days of taking antibiotics. ?? You have questions or concerns about your condition or care. Medicines: ?? Medicines help treat the bacterial infection or decrease pain and burning when you urinate. You may also need medicines to decrease the urge to urinate often. If you have UTIs often (called recurrent UTIs), you may be given antibiotics to take regularly. You will be given directions for when andhow to use antibiotics. The goal is to prevent UTIs but not cause antibiotic resistance by using antibiotics too often. ?? Take your medicine as directed. Contact your healthcare provider if you think your medicine is not helping or if you have side effects. Tell him or her if you are allergic to any medicine. Keep a list of the medicines, vitamins, and herbs you take. Include the amounts, and when and why you take them. Bring the list or the pill bottles to follow-up visits. Carry your medicine list with you in case of an emergency. Self-care: ?? Drink liquids as directed. Liquids can help flush bacteria from your urinary tract. Ask how muchliquid to drink each day and which liquids are best for you. You may need to drink more liquids than usual to help flush out the bacteria. Do not drink alcohol, caffeine, and citrus juices. These canirritate your bladder and increase your symptoms. ?? Apply heat on your abdomen for 20 to 30 minutes every 2 hours for as many days as directed. Heathelps decrease discomfort and pressure in your bladder. Prevent a UTI: ?? Urinate when you feel the urge. Do not hold your urine. Bacteria can grow if urine stays in the bladder too long. It may be helpful to urinate at least every 3 to 4 hours. ?? Urinate after you have sex to flush away bacteria that can enter your urinary tract during sex. ?? Wear cotton underwear and clothes that are loose. Tight pants and nylon underwear can trap moisture and cause bacteria to grow. ?? Cranberry juice or cranberry supplements may help prevent UTIs. Your healthcare provider can recommend the right juice or supplement for you. ?? Women should wipe front to back after urinating or having a bowel movement. This may prevent germs from getting into the urinary tract. Do not douche or use feminine deodorants. These can change the chemical balance in your vagina. You may also be given vaginal estrogen medicine. This medicine helps prevent recurrent UTIs in women who have gone through menopause or are in galo-menopause. Follow up with your healthcare provider as directed: Write down your questions so you remember to ask them during your visits. ?? Copyright [employer] 2020 Information is for End User's use only and may not be sold, redistributed or otherwise used for commercial purposes. All illustrations and images included in CareNotes?? are the copyrighted property of [employer] or [employer] The above information is an lunchroom aide only. It is not intended as medical advice for individual conditions or treatments. Talk to your doctor, nurse or pharmacist before following any medical regimen to see if it is safe and effective for you. Rest Medication as written Medication dose, route and expected duration of medication explained to patient All questions regarding medications answered All tests including imaging discussed with the patient and all questions regarding tests answered Education sheet provided The expected course of the diagnosis was explained to the patient as well as worrisome signs for reevaluation Increase fluids Follow up pcp 3-5 days Return to [facility] or go to the ED if symptoms worsen within the next 48-72 hours documented in this encounter Progress Notes * Eduar Olson APRN - 07/02/2021 4:20 PM EST Images from the original note were not included. [facility] Subjective: Patient ID: Layla Cedeño is an 20 y.o. female. Chief Complaint: Chief Complaint Patient presents with ??? Blood Sugar Problem had episode yesterday The patient has a chief complaint of I became light headed yesterday. The patient indicates that she became light head after a message yesterday. The patient indicates that the room became black for unknown amount of time. The patient has never had this before. No past medical history on file. No past surgical history on file. No family history on file. Social History Tobacco Use ??? Smoking status: Never Smoker ??? Smokeless tobacco: Never Used Substance Use Topics ??? Alcohol use: Not on file ??? Drug use: Not on file No Known Allergies Medications taking before visit Disp Refills Start End hydrOXYzine pamoate (VISTARIL) 25 mg capsule 30 Cap 0 12/29/2017 Sig - Route: Take 1 Cap by mouth Every 6 hours as needed for Itching. - Oral Number of times this order has been changed since signin Order Audit [facility] Medications at End Visit as of 07/02/2021 Disp Refills Start End nitrofurantoin, macrocrystal-mono, (MACROBID) 100 mg capsule (Taking) 10 Capsule 0 07/02/2021 07/07/2021 Sig - Route: Take 1 Capsule by mouth Twice a day for 5 days. - Oral Number of times this order has been changed since signin Order Audit [facility] hydrOXYzine pamoate (VISTARIL) 25 mg capsule 30 Cap 0 12/29/2017 Sig - Route: Take 1 Cap by mouth Every 6 hours as needed for Itching. - Oral Number of times this order has been changed since signin Order Audit [facility] Review of Systems Constitutional: Negative for fever. Eyes: Negative for visual disturbance. Neurological: Positive for light-headedness. Negative for dizziness, seizures, facial asymmetry, speech difficulty, weakness, numbness and headaches. All other systems reviewed and are negative. Objective: BP 110/78 Pulse 105 Temp 98.6 ??F (37 ??C) Resp 18 Ht 5' 8 (172.7 cm) Wt 63 kg (139 lb) LMP 06/23/2021 SpO2 100% BMI 21.13 kg/m?? Physical Exam Vitals and nursing note reviewed. Constitutional: General: She is not in acute distress. Appearance: Normal appearance. She is well-developed. She is not ill-appearing, toxic-appearing or diaphoretic. HENT: Head: Normocephalic. Right Ear: Hearing, tympanic membrane, ear canal and external ear normal. Tympanic membrane is not erythematous. Left Ear: Hearing, tympanic membrane, ear canal and external ear normal. Tympanic membrane is not erythematous. Nose: Nose normal. No mucosal edema, congestion or rhinorrhea. Right Sinus: No maxillary sinus tenderness or frontal sinus tenderness. Left Sinus: No maxillary sinus tenderness or frontal sinus tenderness. Mouth/Throat: Lips: Celina. Mouth: Mucous membranes are moist. Pharynx: Uvula midline. No posterior oropharyngeal erythema. Eyes: General: No scleral icterus. Pulmonary: Effort: Pulmonary effort is normal. No accessory muscle usage or respiratory distress. Breath sounds: Normal breath sounds and air entry. No stridor, decreased air movement or transmitted upper airway sounds. No decreased breath sounds, wheezing, rhonchi or rales. Abdominal: General: There is no distension. Lymphadenopathy: Cervical: No cervical adenopathy. Skin: General: Skin is warm and dry. Neurological: General: No focal deficit present. Mental Status: She is alert and oriented to person, place, and time. GCS: GCS eye subscore is 4. GCS verbal subscore is 5. GCS motor subscore is 6. Gait: Gait is intact. Psychiatric: Behavior: Behavior is cooperative. Procedures Assessment: 1. Acute cystitis with hematuria nitrofurantoin, macrocrystal-mono, (MACROBID) 100 mg capsule Urine Culture 2. Light headed POCT glucose 12 Lead EKG POCT Urine POCT Urinalysis Dipstick (Clinitek) Plan: The patient indicates that she had one episode of light headedness while at a friends house yesterday. The patient indicates that she is not having any symptoms and feels fine. Blood sugar is 86 EKG was completed with no elevation Negative urine Positive urine dip The patient was placed on Macrobid at this time. Urine culture pending Facial expressions are symmetrical. Hand director of casework services are equal. Pupils are equal and reactive. No speech difficulty noted. I offered to send the patient to the local ER for further evaluation but the patient refused. The patient indicates that if she feels light headed that she will follow up. - Follow up with pcp or Urgent Care as needed . Orders Placed This Encounter ??? Urine Culture ??? Fingerstick Glucose ??? POCT glucose ??? POCT Urine ??? POCT Urinalysis Dipstick (Clinitek) ??? 12 Lead EKG ??? nitrofurantoin, macrocrystal-mono, (MACROBID) 100 mg capsule Patient Instructions Urinary Tract Infection in Older Adults WHAT YOU NEED TO KNOW: A urinary tract infection (UTI) is caused by bacteria that get inside your urinary tract. Your urinary tract includes your kidneys, ureters, bladder, and urethra. Urine is made in your kidneys, and it flows from the ureters to the bladder. Urine leaves the bladder through the urethra. A UTI is morecommon in your lower urinary tract, which includes your bladder and urethra. DISCHARGE INSTRUCTIONS: Return to the emergency department if: ?? You are urinating very little or not at all. ?? You are vomiting. ?? You have a high fever with shaking chills. ?? You have side or back pain that gets worse. Call your doctor if: ?? You have a fever. ?? You are a woman and you have increased white or yellow discharge from your vagina. ?? You do not feel better after 2 days of taking antibiotics. ?? You have questions or concerns about your condition or care. Medicines: ?? Medicines help treat the bacterial infection or decrease pain and burning when you urinate. You may also need medicines to decrease the urge to urinate often. If you have UTIs often (called recurrent UTIs), you may be given antibiotics to take regularly. You will be given directions for when andhow to use antibiotics. The goal is to prevent UTIs but not cause antibiotic resistance by using antibiotics too often. ?? Take your medicine as directed. Contact your healthcare provider if you think your medicine is not helping or if you have side effects. Tell him or her if you are allergic to any medicine. Keep a list of the medicines, vitamins, and herbs you take. Include the amounts, and when and why you take them. Bring the list or the pill bottles to follow-up visits. Carry your medicine list with you in case of an emergency. Self-care: ?? Drink liquids as directed. Liquids can help flush bacteria from your urinary tract. Ask how muchliquid to drink each day and which liquids are best for you. You may need to drink more liquids than usual to help flush out the bacteria. Do not drink alcohol, caffeine, and citrus juices. These canirritate your bladder and increase your symptoms. ?? Apply heat on your abdomen for 20 to 30 minutes every 2 hours for as many days as directed. Heathelps decrease discomfort and pressure in your bladder. Prevent a UTI: ?? Urinate when you feel the urge. Do not hold your urine. Bacteria can grow if urine stays in the bladder too long. It may be helpful to urinate at least every 3 to 4 hours. ?? Urinate after you have sex to flush away bacteria that can enter your urinary tract during sex. ?? Wear cotton underwear and clothes that are loose. Tight pants and nylon underwear can trap moisture and cause bacteria to grow. ?? Cranberry juice or cranberry supplements may help prevent UTIs. Your healthcare provider can recommend the right juice or supplement for you. ?? Women should wipe front to back after urinating or having a bowel movement. This may prevent germs from getting into the urinary tract. Do not douche or use feminine deodorants. These can change the chemical balance in your vagina. You may also be given vaginal estrogen medicine. This medicine helps prevent recurrent UTIs in women who have gone through menopause or are in galo-menopause. Follow up with your healthcare provider as directed: Write down your questions so you remember to ask them during your visits. ?? Copyright [employer] 2020 Information is for End User's use only and may not be sold, redistributed or otherwise used for commercial purposes. All illustrations and images included in CareNotes?? are the copyrighted property of [employer] or [employer] The above information is an lunchroom aide only. It is not intended as medical advice for individual conditions or treatments. Talk to your doctor, nurse or pharmacist before following any medical regimen to see if it is safe and effective for you. Rest Medication as written Medication dose, route and expected duration of medication explained to patient All questions regarding medications answered All tests including imaging discussed with the patient and all questions regarding tests answered Education sheet provided The expected course of the diagnosis was explained to the patient as well as worrisome signs for reevaluation Increase fluids Follow up pcp 3-5 days Return to [facility] or go to the ED if symptoms worsen within the next 48-72 hours documented in this encounter Plan of Treatment Not on file documented as of this encounter Procedures Procedure Name Priority Date/Time Associated Diagnosis Comments URINE CULTURE Routine 07/02/2021 10:55 PM EST Acute cystitis with hematuria POCT URINALYSIS DIPSTICK (CLINITEK) Routine 07/02/2021 6:46 PM EST Light headed POCT URINE TESTS Routine 07/02/2021 6:45 PM EST Light headed FINGERSTICK GLUCOSE Routine 07/02/2021 6 :43 PM EST EKG 12-LEAD STAT 07/02/2021 6:31 PM EST Light headed documented in this encounter Results * Urine Culture (07/02/2021 10:55 PM EST) URINE CULTURE COLONY COUNT: 10-100K cfu/ml ??three or more organisms present, indicates poor specimen. Suggest repeat collection. 07/04/2021 10:36 AM EST [facility] Urine (Urine, Clean Catch) 07/02/2021 10:55 PM EST 07/02/2021 10:55 PM EST Narrative [facility] - 07/04/2021 10:36 AM EST NO KNOWN ALLERGIES Eduar Olson APRN MICROBIOLOGY - GENERAL ORDERABLES Performing Organization Address City/State/[facility] Co de Phone Number [facility] [address] [place] [address] [facility] [address] [place] [address] * (ABNORMAL) POCT Urinalysis Dipstick (Clinitek) (07/02/2021 6:46 PM EST) GLUCOSE URINE, POC negative BILIRUBIN RECHECK negative KETONES, POC 15mg SPECIFIC GRAVITY, POC >=1.030 1.005 - 1.030 BLOOD URINE, POC trace PH, POC 5.5 5.0 - 9.0 PROTEIN, POC negative UROBILINOGEN, POC 0.2 0.2 - 1.0 NITRITE negative LEUKOCYTE EST, POC small Lot Number [id number] Expiration Date 07-10-22 07/02/2021 6:46 PM EST Eduar Olson APRN POINT OF CARE T EST ORDERABLES * POCT Urine (07/02/2021 6:45 PM EST) TEST URINE negative Lot Number [id number] Expiration Date 09-09-22 Urine 07/02/2021 6:45 PM EST Eduar Olson APRN POINT OF CARE T EST ORDERABLES * Fingerstick Glucose (07/02/2021 6:43 PM EST) Pathologist [facility] GLUCOSE FINGERSTICK 86 70 - 110 mg/dL 07/02/2021 6:43 PM EST [facility] 07/02/2021 6:43 PM EST 07/02/2021 6:45 PM EST Eduar Olson APRN HEMATOLOGY [place] [facility] [address] [place] [address] [facility] [address] [place] [address] * 12 Lead EKG (07/02/2021 6:31 PM EST) 07/02/2021 6:31 PM EST Narrative [facility] - 07/03/2021 6:02 AM EST ? [facility] ? [address], [place] [address] ? Test Date: ?2021-07-02 Pat Name: ? LAYLA CEDEÑO ? Department: ?? [facility] ? Room: ? Gender: ? Female ? Production Line Welder: ?? : ?2000 ? Requested By: EDUAR CHANG CHRISTIAN Order Number: [id number] ?Reading MD: ?? Dany Flynn MD ? Measurements Intervals ?[place] ? Rate: ? 103 ?P: ?73 CA: ? 161 ?QRS: ?70 QRSD: ? 98 ? T: ?5 QT: ? 328 ? QTc: ?429 ? Interpretive Statements SINUS TACHYCARDIA LEFT ATRIAL ENLARGEMENT [-0.15mV P WAVE IN V1/V2] NONSPECIFIC T-WAVE ABNORMALITY No previous ECG available for comparison Electronically Signed On 07-03-2021 6:02:41 EST by Dany Flynn MD Procedure Note Dany Flynn MD - 07/03/2021 [facility] [address] [facility] [place] [address] Test Date: 2021-07-02 Pat Name: LAYLA CEDEÑO Department: [facility] Room: Gender: Female Production Line Welder: : 2000 Requested By: EDUAR CHRISTIAN Order Number: [id number] Reading MD: Dany Flynn MD Measurements Intervals [place] Rate: 103 P: 73 CA: 161 QRS: 70 QRSD: 98 T: 5 QT: 328 QTc: 429 Interpretive Statements SINUS TACHYCARDIA LEFT ATRIAL ENLARGEMENT [-0.15mV P WAVE IN V1/V2] NONSPECIFIC T-WAVE ABNORMALITY No previous ECG available for comparison Electronically Signed On 07-03-2021 6:02:41 EST by Dany Flnyn MD Eduar Olson APRN EKG ORDERABLES [place] documented in this encounter Visit Diagnoses Diagnosis Acute cystitis with hematuria- Primary Light headed Dizziness and giddiness documented in this encounter
--- OUTSIDE RECORDS SUMMARY | 2024-03-30 17:37 | XMS_ITS ---
Author Organization [facility] Address [address] [place] [address] Care Team Providers Care Portable Machine Cutter Name Role Phone Zack Suzi Unavailable [phone] Allergies No Known Allergies REASON FOR VISIT 24 wks Medications Medication SIG (Take, Route, Frequency, Duration) Notes Start Date End Date Status Unisom Not-Taking Promethazine HCl 25 MG 1 tablet as neede d Orally every 6 hours as needed 12/24/2023 Not-Taking Vitamins 28-0.8 MG TAKE 1 TABLET BY MOUTH ONCE DAILY Oral for 30 Days Active Vitamin C 100 MG 1 tablet Orally Once a day for 30 days 12/30/2023 Active Vitamin B-6 25 MG 1 tablet Orally Once a day Active Ondansetron 8 MG 1/2-1 tablet on the tongue and allow to dissolve as needed Orally every 8 hours as needed 12/24/2023 Not-Taking Ferrous Sulfate 325 (65 Fe) MG 1 tablet Orally Once daily for 30 days 12/30/2023 Active Social History Sex Assigned At : Social History Observation Description Sex Assigned At Female Vital Signs Weight 161.0 lbs 03/19/2024 Encounters Encounter Location Date Provider Diagnosis [facility] [address] [place] [address] 03/19/2024 Suzi Dixon Encounter for supervision of other normal , second trimester Z34.82 and 24 weeks gestation of Z3A.24 Assessments Encounter Date Diagnosis (ICD Code) Assessment Notes Treat ment Notes Treatment Clinical Notes 03/19/2024 Encounter for supervision of other normal , second trimester (ICD-10 - Z34.82) 03/19/2024 24 weeks gestation of (ICD-10 - Z3A.24) Plan Of Treatment Pending Test Test Name Order Date CBC 03/19/2024 Gest. Diabetes Screen 1 Hr Glucose 03/19 Syphilis T Pallidium Screening Irwin 1 05/19/2023 Next Appt Details Follow Up: 4 Weeks, 4 Weeks, Reason: Provider Name:Suzi Dixon , 04/13/2024 09:00:00 AM, [address], [address], [place], [address], Provider Name:Suzi Dixon , 04/27/2024 03:15:00 PM, [address], [address], [place], [address], Provider Name:Suzi Dixon , 05/11/2024 03:15:00 PM, [address], [address], [place], [address], Provider Name:Moises Loya, 05/25/2024 03:15:00 PM, [address], [address], [place], [address], Provider Name:Moises Loya, 06/08/2024 03:15:00 PM, [address], [address], [place], [address], Provider Name:Moises Loya, 06/16/2024 03:15:00 PM, [address], [address], [place], [address], Provider Name:Moises Loya, 06/23/2024 03:15:00 PM, [address], [address], [place], [address], Provider Name:Moises Loya, 06/30/2024 03:15:00 PM, [address], [address], [place], [address], Provider Name:Moises Loya, 07/07/2024 03:15:00 PM, [address] , [facility] [address] [place] [address], [address], Progress Notes * Lupe CEDEÑO KDOB: 0 (23 yo F)Acc No.[id number]:03/19/2024 Progress Note Patient:?Lupe CEDEÑO Rafa Provider:?Suzi Dixon CNM, CUSTOMER EXPERIENCE CONSULTANT :2000???Age:23 Y???Sex:Female D ate:03/19/2024 Address:[address] [place], [place] [id number] Subjective: * Chief Complaints: * ???24 wks * Medical History:? * Senior Program Analyst History:?Pap Smear History: ?Date of Last Pap/HPV:?-2021 ?Last Pap/HPV Results:?Normal Pap ?History of Abnormal Pap Smears:?No ?HPV Vaccination Series Complete:?No ???Last Mammogram Date:?N/A.?Last Colon Cancer Screening Date:?N/A.?Last DEXA Scan:?N/A.?Menstrual History: ?Currently having menstrual cycles??No ?Reason for No Menses:?/Possible ?Age of Onset?13 ?LMP:?September 29, 2023 ?Time between periods:?How would you describe your flow? Moderate ?Duration:?2-7 days, 21-32 days ?Associated signs and symptoms of period:?Yes, Bloating, Headaches ???Sexual Activity/Contraception: ?Ever been sexually active??Yes ?Currently sexually active??No ?Gender of sexual partners:?Male ; No - 5 or more lifetime partners ?Age of first sexual activity:?20 ?Contraception:?None ?History of STIs:?None ?Number of partners (lifetime)?No ?Age of first sexual activity?20 ???INSPECTOR TYPE Medical Hx:?None noted.?Last Preventive Screening Labs:?2023.?Last Pelvic Ultrasound Date:?2023.?Urinary Incontinence: ?Do you ever leak urine when you cough, sneeze, laugh or exercise?No ?Do you ever leak urine on the way to the bathroom or can't get to the bathroom on time?No ?Do you go to the bathroom frequently more than 7 times during the day and/or get up more than 2 times at night?No ??? control (Historical)?Nothing.?Abnormal pap smear (Historical)?No.?Sexually Transmitted Infections (STIs)?None.?Last Pap Smear/HPV Date (Historical)?August 2021 negative.? * OB History:? History (GPA)?Total Pregnancies?1 ?Full Term?0 ?Premature?0 ?AB. Induced?0 ?AB. Spontaneous?0 ?AB. Elective?0 ?AB. Therapeutic?0 ?Ectopics?0 ?Multiple Births?0 ?Living?0 ?Vaginal Deliveries?0 ?C-Sections?0 ???GP?:?1 ?Para:?0 ??? # 1:?ATUL = 07/05/2024 - Currently .? * Surgical History:?Upper Endo scopy * Hospitalization/Major Diagno stic Procedure:?No Hospitalization History. * Family History:?Mother: diag nosed with Diabetes mellitus without mention of complication, type II or unspecified type, not stated as uncontrolled.?Maternal Grand Mother: diagnosed with Diabetes mellitus without mention of complication, type II or unspecified type, not stated as uncontrolled.? Mental Illness: Mother, Sibling, Maternal Grandmother; Nothing else documented. * Social History:?Do you have any spiritism or culture customs that your provider should know about?: No Do you now or have you ever smoked or used tobacco products?: No Have you ever used any recreational drugs?: No Have you had a drink containing alcohol in the last year?: No Would you object to blood products in the event of an emergency?: Yes. * Medications:?TakingFerrous S ulfate 325 (65 Fe) MG Tablet 1 tablet Orally Once daily Vitamins 28-0.8 MG Tablet TAKE 1 TABLET BY MOUTH ONCE DAILY Oral Vitamin B-6 25 MG Tablet 1 tablet Orally Once a day Vitamin C 100 MG Tablet 1 tablet Orally Once a day Taking Ferrous Sulfate 325 (65 Fe) MG Tablet 1 tablet Orally Once daily Taking Vitamins 28-0.8 MG Tablet TAKE 1 TABLET BY MOUTH ONCE DAILY Oral Taking Vitamin B-6 25 MG Tablet 1 tablet Orally Once a day Taking Vitamin C 100 MG Tablet 1 tablet Orally Once a day Not-Taking/PRNOndansetron 8 MG Tablet Disintegrating 1/2-1 tablet on the tongue and allow to dissolve as needed Orally every 8 hours as needed Promethazine HCl 25 MG Tablet 1 tablet as needed Orally every 6 hours as needed Unisom Medication List reviewed and reconciled with the patientNot-Taking/PRN Ondansetron 8 MG Tablet Disintegrating 1/2-1 tablet on the tongue and allow to dissolve as needed Orally every 8 hours as needed Not-Taking/PRN Promethazine HCl 25 MG Tablet 1 tablet as needed Orally every 6 hours as needed Not-Taking/PRN Unisom Medication List reviewed and reconciled with the patient * Allergies:?N.K.D.A.yes[Aller gies Verified] Objective: * Vitals:?Wt: 161.0 lbs. Assessment: * Assessment: 1.?Encounter for supervision of other normal , second trimester - Z34.82 (Primary)???2.?24 weeks gestation of - Z3A.24??? Plan: * Treatment: 2.?24 weeks gestation of pre gnancy?LAB: CBC ?LAB: Gest. Diabetes Screen 1 Hr Glucose ?LAB: Syphilis T Pallidium Screening [place] * Procedure Codes:?jessie Return OB [id number] HEDIS SUBSEQUENT CARE * Follow Up:?4 Weeks, 4 Weeks * Billing Information: * Visit Code:? * Procedure Codes:? jessie Return OB Visit. 0502F HEDIS SUBSEQUENT CARE. * Sign off status: Completed Visit Status:?CHK (Check Out ) true * Provider:?Suzi Dixon CNM, CUSTOMER EXPERIENCE CONSULTANT Date:? 03/19/2024 Generated for Julianne ariza/Yanelis/eTwaltsmitting on:?03/30/2024 05:37 PM EST
--- OUTSIDE RECORDS SUMMARY | 2024-03-30 17:37 | XMS_ITS | Encounter Summary ---
Author Organization [facility] Address [address] [place] [address] Care Team Providers Care Chief Investment Officer Name Role Phone Dinesh Montse KILN OPERATOR Primary Care Provider [phone] Radha Griffin KILN OPERATOR Unavailable [phone] Reason for Visit * Auth/Cert (Routine) - New Request Specialty Diagnoses / Procedures Referred By Contact Referred To Contact Gastroenterology Diagnoses Nausea Upper abdominal pain Procedures Surgical Case Request: EGD WY EGD TRANSORAL BIOPSY SINGLE/MULTIPLE WY ESOPHAGOGASTRODUODENOSCOPY TRANSORAL DIAGNOSTIC WY EGD BAND LIGATION ESOPHGEAL/GASTRIC VARICES WY EGD DILATION GASTRIC/DUODENAL STRICTURE WY EGD BALLOON DILATION ESOPHAGUS <30 MM DIAM WY DILATE ESOPHAGUS Radha Griffin, KRYS [address] [place] [address] [place] [address] Rosalva Diez MD [address] [place] [address] [address] [place] [address] Referral ID Status Reason Start Date Expiration Date V isits Requested Visits Authorized [id number] New Request 02/06/2022 02/06/2023 1 1 Encounter Details Date Type Department Care Team (Latest Contact Info) Description 03/12/2022 7:52 AM EDT - 03/12/2022 9:32 AM EDT Hospital Encounter Endoscopy [address] [place] [address] Rosalva Diez MD [address] [place] [address] Nausea; Upper abdominal pain; Nausea; Upper abdominal pain Discharge Disposition: Home or Self Care Social [...] Exposure Response Date Recorded In the last 10 days, have yo u been in contact with someone who was confirmed or suspected to have Coronavirus/COVID-19? No / Unsure 02/06/2022 10:07 AM EDT documented as of this encounter Last Filed Vital Signs Vital Sign Reading Time Taken Comments Blood Pressure 108/80 03/12/2022 9:27 AM EDT Pulse 81 03/12/2022 9:27 AM EDT Temperature 36.8 ??C (98.3 ??F) 03/12/2022 9:12 AM ED T Respiratory Rate 20 03/12/2022 9:27 AM EDT Oxygen Saturation 100% 03/12/2022 9:27 AM EDT Inhaled Oxygen Concentration - - Weight 68 kg (150 lb) 03/12/2022 8:42 AM EDT Height 172.7 cm (5' 8 ) 03/12/2022 8:42 AM EDT Body Mass Index 22.81 03/12/2022 8:42 AM EDT documented in this encounter Discharge Instructions * Discharge Instructions* Eva Macias RN - 03/12/2022 9:18 AM EDT 1.You should NOT drive, operate machines, drink alcohol, or take sleeping or nerve drugs for 24 hours unless the doctor tells you to. 2. Avoid signing legal papers or making important decisions for 24 hours. 3. You may be slightly sore where the tubes have been; this is normal and will wear off in a day orso. 4. Some bloating may be present if air has remained in your stomach and/or bowel; this is normal and will go away within a few hours. 5. Your IV site (where you got drugs) may be tender to touch. Place warm, wet towels on this site; keep your arm up on two pillows as much as possible for 24 hours. Diet: as tolerated. Avoid salads, fresh fruits, nuts, seeds, gas forming or irritating foods for 3 or 4 days. Drugs: as directed. Activity: You may return to your normal activities tomorrow. Avoid jogging, exercise, heavy liftingand straining with bowel movements for a few days. CALL YOUR DOCTOR IF: - severe/worse pain or vomiting - passage or vomiting of blood - fever above 101/chills - redness, pain, and/or swelling of IV site that last more than 2 days - Any questions or concerns. If you need urgent care, you may wish to see a doctor at the nearest Emergency Room. Your Return Visit: Keep your appointment with the doctor for further instructions and for the report of any biopsies. Endoscopy Unit Thank you for allowing our team to care for you today! We sincerely hope that you received excellent care today! In 7-10 days you may receive a survey in the mail. We would appreciate it very much ifyou would provide feedback for our team! Thanks! * Attachments The following attachments cannot be sent through Care Everywhere. * Hiatal Hernia (General Information) (Syriac) documented in this encounter Medications at Time of Discharge Medication Sig Dispensed Refills Start Date End Date ISIBLOOM 0.15-0.03 mg Tab TAKE 1 TABLET BY MOUTH EVERY DAY 05/26/2021 omeprazole (PRILOSEC) 40 mg capsuleIndications:Naus ea,Upper abdominal pain,Nausea,Upper abdominal pain Take 1 Capsule by mouth Once Daily. 90 Capsule 3 03/12/2022 10/11/2022 cyproheptadine (PERIACTIN) 4 mg tabletIndications:Nause a,Upper abdominal pain,Nausea,Upper abdominal pain Take 1 Tablet by mouth Three times a day. 270 Tablet 3 03/12/2022 10/11/2022 FLUoxetine (PROZAC) 20 mg tablet Take 20 mg by mouth Once Daily. 10/11/2022 hydrOXYzine pamoate (VISTARIL) 25 mg capsuleIndications:Urti caria Take 1 Cap by mouth Every 6 hours as needed for Itching. 30 Cap 12/29/2017 10/11/2022 documented as of this encounter Progress Notes * Eva Macias RN - 03/12/2022 9:22 AM EDT Physician discussed procedure(s) with patient and family member. Discharge instructions given. Patient and family member state understanding. All discharge criteria met. * Eva Macias RN - 03/12/2022 9:21 AM EDT Received to Recovery. Monitors applied. Vitals signs are stable. Patient skin is warm, pink and dry. Gag reflex present. Abdomen soft, nontender. Patient denies pain or discomfort. No distress noted.Family to bedside. documented in this encounter H&P Notes * Rosalva Diez MD - 03/12/2022 8:44 AM EDT History and Physical Chief Complaint: Nausea and upper abdominal pain History of Present Illness: Patient is a 21 y.o. with cc of nausea and abdominal pain Past Medical History: Patient has a past medical history of Anxiety. Past Surgical History: Patient's has no past surgical history on file. Family History: Patient's family history is not on file. Social History: She reports no history of alcohol use. She reports no history of drug use. She reports that she has never smoked. She has never used smokeless tobacco. Allergies: Patient has no known allergies. MANAGER INTEGRITY Medications: ??? FLUoxetine (PROZAC) 20 mg tablet Take 20 mg by mouth Once Daily. ??? [] ondansetron (ZOFRAN-ODT) 4 mg disintegrating tablet Take 1 Tablet by mouth Twice a day as needed for Nausea for up to 30 days. ??? [] omeprazole (PRILOSEC) [address] capsule Take 1 Capsule by mouth Once Daily for 30 days. ??? ISIBLOOM 0.15-0.03 mg Tab TAKE 1 TABLET BY MOUTH EVERY DAY ??? hydrOXYzine pamoate (VISTARIL) 25 mg capsule Take 1 Cap by mouth Every 6 hours as needed for Itching. Review of Systems: A comprehensive review of systems was negative. Physical Exam: General Appearance: alert Lungs: clear to auscultation bilaterally Heart: regular rate and rhythm, S1, S2 normal, no murmur, click, rub or gallop Abdomen: soft, non-tender. Bowel sounds normal. No masses, no organomegaly Estimated body mass index is 21.29 kg/m?? as calculated from the following: Height as of 02/06/22: 5' 8 (172.7 cm). Weight as of 02/06/22: 63.5 kg (140 lb). Last Recorded Vital Signs: Imaging: Reviewed Labs: CBC: No results found for: WBC, RBC, HGB, HCT, MCV, MCH, MCHC, RDW, MPV, PLATELETCNT Active Problems: Nausea Upper abdominal pain Assessment: Nausea Upper abdominal pain Plan:EGD Signed: Rosalva Diez MD 03/12/2022 8:44 AM documented in this encounter Miscellaneous Notes * Op Note - Rosalva Diez MD - 03/12/2022 9:13 AM EDT EGD performed-note under the procedure tabs via provation documented in this encounter Plan of Treatment Not on file documented as of this encounter Procedures Procedure Name Priority Date/Time Associated Diagnosis Comments SURGICAL CASES Today 03/12/2022 9:05 AM EDT Nausea Upper abdominal pain EGD /C BIOPSY 03/12/2022 8:57 AM EDT Nausea Upper abdominal pain [facility] Routine 03/12/2022 8:52 AM EDT POCT URINE TESTS Routine 03/12/2022 8:21 AM EDT documented in this encounter Results * Surgical Cases (03/12/2022 9:05 AM EDT) SURGICAL CASES SEE BELOW Comment: ?'S Patient ??LAYLA CEDEÑO ?DAUGHTERS : Accessi ??[id number] ? [facility] on# ?[address], ?[place] [address] ? The information contained in this report is meant to be interpreted by ?? the ordering physician/health care provider in the context of the patient's clinical findings. Please refer to your physician/health care ?provider for follow up care. FINAL DIAGNOSIS: (A ?? Stomach, antrum, endoscopic biopsy: ?Antral-type mucosa with mild chronic gastritis. ? Stomach, body/fundus, endoscopic biopsy: ?Oxyntic-type mucosa with mild chronic gastritis. (B) Submitted as duodenal , biopsy: Mild chronic duodenitis. COMMENT ( A ): ??The overall findings within the gastric biopsy(s) do not suggest the presence of an active H. pylori infection. ??If there is a high clinical suspicion for the presence of H. pylori, additional stains can be performed if specifically requested by the treating physician. ? <Sign Out Dr. Marques> ? MIGUELANGEL PAZ D.O., Pathologist CLINICAL ?ABDOMINAL PAIN, NAUSEA INFORMATION: TISSUE SUBMITTED: ?(A) GASTRIC BIOPSY ? (B) SMALL BOWEL BIOPSY GROSS DESCRIPTION: The following specimens are received in prefilled formalin containers: (A) Labeled gastric biopsy are four pieces of knight-pink to focally hemorrhagic soft tissue measuring 0.2 to 0.4 cm. in greatest dimension. Entirely submitted in one cassette. (B) Labeled duodenal biopsy are four pieces of knight-pink to hemorrhagic soft tissue measuring 0.2 to 0.4 cm. in greatest dimension. Entirely submitted in one cassette./MALCOLM MIKE The specimen(s) total fixation time is 6-72 hours. ?Trans ID: ??[id number] MICROSCOPIC DESCRIPTION: (A) ??Histologic sections demonstrate fragments of oxyntic-type and antral-type mucosa with a mild increase in chronic inflammatory cells within the lamina propria. ??No significant acute inflammation is seen. There is no intestinal metaplasia or dysplasia identified. (B) ?? Histologic sections demonstrate fragments of duodenal mucosa with a mild increase in chronic inflammatory cells within the lamina propria. ??There is no significant increase in intraepithelial lymphocytes or crypt hyperplasia. ??The villous architecture is unremarkable. ??There is no morphologic support for the involvement of Celiac Disease within the specimen. ??Please correlate with clinical/laboratory findings. ?Trans ID: Part B: [id number] x 3 Patient: ??KAHLIL LAYLA JUAN ? [facility] ?[facility] Accessio ??[id number] ?Page 1 of 1 n # Biopsy (other) 03/12/2022 9: 05 AM EDT Biopsy (other) 03/12/2022 9: 07 AM EDT Rosalva Diez MD PATHOLOGY/CYTO LOGY ORDERABLES Performing Organization Address [facility] Co de Phone Number [facility] [address] [place] [address] * [facility] ENDOSCOPY (03/12/2022 8:52 AM EDT) 03/12/2022 8:52 AM EDT Narrative [facility] - 03/12/2022 9:11 AM EDT Patient Name: Layla Cedeño ?Procedure Date: 03/12/2022 8:52 AM ? Date of : 2000 Gender: Female ?Age: 21 Attending MD: Rosalva Diez MD ?? Procedure: ? Upper GI endoscopy Indications: ? Epigastric abdominal pain, Nausea Providers: ? Rosalva Diez MD Referring MD: ?Montse Lagunas Requesting Provider: ?? Medicines: ? Propofol per Anesthesia Complications: ? No immediate complications. Procedure: ? Pre-Anesthesia Assessment: ? - Prior to the procedure, a History and Physical was ? performed, and patient medications and allergies were ? reviewed. The patient is competent. The risks and ? benefits of the procedure and the sedation options and ? risks were discussed with the patient. All questions ? were answered and informed consent was obtained. ? Patient identification and proposed procedure were ? verified by the physician and the nurse in the ? pre-procedure area in the procedure room. Mental ? Status Examination: alert and oriented. Airway ? Examination: normal oropharyngeal airway and neck ? mobility. Respiratory Examination: clear to ? auscultation. CV Examination: normal. Prophylactic ? Antibiotics: The patient does not require prophylactic ? antibiotics. Prior Anticoagulants: The patient has ? taken no anticoagulant or antiplatelet agents. ASA ? Grade Assessment: II - A patient with mild systemic ? disease. After reviewing the risks and benefits, the ? patient was deemed in satisfactory condition to ? undergo the procedure. The anesthesia plan was to use ? deep sedation / analgesia. Immediately prior to ? administration of medications, the patient was ? re-assessed for adequacy to receive sedatives. The ? heart rate, respiratory rate, oxygen saturations, ? blood pressure, adequacy of pulmonary ventilation, and ? response to care were monitored throughout the ? procedure. The physical status of the patient was ? re-assessed after the procedure. ? After obtaining informed consent, the patient was ? carefully attached to monitoring devices, placed in ? the left lateral position and the scope was passed ? under direct vision. Throughout the procedure, the ? patient's blood pressure, pulse, and oxygen ? saturations were monitored continuously. The Olympus ? GIF-[id number] ([id number]) endoscope was introduced through ? the mouth, and advanced to the third part of duodenum. ? The upper GI endoscopy was accomplished without ? difficulty. The patient tolerated the procedure well. ? Findings: ? The Z-line was regular and was found 36 cm from the incisors. ? A small hiatal hernia was present. ? The entire examined stomach was normal. Biopsies were taken with a cold ? forceps for histology. Biopsies were taken with a cold forceps for ? histology. ? The examined duodenum was normal. Biopsies were taken with a cold ? forceps for histology. ? Impression: ?- Z-line regular, 36 cm from the incisors. ? - Small hiatal hernia. ? - Normal stomach. Biopsied. ? - Normal examined duodenum. Biopsied. Recommendation: ?- Patient has a contact number available for ? emergencies. The signs and symptoms of potential ? delayed complications were discussed with the patient. ? Return to normal activities tomorrow. Written ? discharge instructions were provided to the patient. ? - Written discharge instructions were provided to the ? patient. ? - Resume previous diet. ? - Continue present medications. ? - Await pathology results. ? - Thanks for kind referral ? Rosalva Diez MD Rosalva Diez MD 03/12/2022 9:11:01 AM This report has been signed electronically. Number of Addenda: 0 Note Initiated On: 03/12/2022 8:52 AM MRN: ? [id number] Total Procedure Duration Time 0 hours 3 minutes 45 seconds Estimated Blood Loss: ? Estimated blood loss: none. Rosalva Diez MD [facility] [address] [facility] [place] [address] * POCT Urine Test (03/12/2022 8:21 AM EDT) TEST URINE negative Lot Number [id number] Expiration Date 06-12-2023 03/12/2022 8:21 AM EDT Rosalva Diez MD POINT OF CARE TEST ORDERABLES documented in this encounter Visit Diagnoses Diagnosis Nausea Nausea alone Upper abdominal pain Abdominal pain, other specified site documented in this encounter Admitting Diagnoses Diagnosis Nausea Nausea alone Upper abdominal pain Abdominal pain, other specified site documented in this encounter Administered Medications Inactive Administered Medications - up to 3 most recent administrations Medication Order MAR Action Action Date Dose Rate Site LR (lactated ringers) IV infusion at 50 mL/hr, Intravenous, ONE TIME ONLY, 1 dose, On Sat03/12/22 at 0815 Routine, Pre-Procedure New Bag 03/12/2022 8:45 AM EDT 50 mL/hr documented in this encounter Active and Recently Administered Medications Times are shown in EDT. Scheduled Medication Order 03/10/2022 03/11/2022 03/12/2022 LR (lactated ringers) IV infusion (COMPLETED) at 50 mL/hr, Intravenous, ONE TIME ONLY, 1 dose, On Sat03/12/22 at 0815 Routine, Pre-Procedure 0845 (New Bag - Prov ider: Gurpreet Paz RN)0923 (Stopped - Provider: Eva Macias RN) documented in this encounter Care Teams Chief Investment Officer Relationship Specialty Start Date End Date Montse Montiel APRN [address] [place] [address] PCP - General Nurse Practitioner 02/06/22 Radha Griffin APRN [address] [place] [address] [address] [place] [address] Nurse Practitioner Gastroenterology 02/06/22 documented as of this encounter
--- OUTSIDE RECORDS SUMMARY | 2024-03-30 17:37 | XMS_ITS | Encounter Summary ---
Author Organization [facility] Address [address] [place] [address] Care Team Providers Care Public Space Attendant Name Role Phone Unavailable Primary Care Provider Unavailabl e Reason for Visit * Reason Onset Date Comments Establish Care 09/04/2021 Encounter Details Date Type Department Care Team (Late st Contact Info) Description 09/04/2021 Telephone Patient Access Center [address] [place] [address] Doctor, [place], [place] Establish Care Social History Tobacco Use Types Packs/Day Years Used Date Smoking Tobacco: Never Smokeless Tobacco: Never Sex and Gender Information Value Date Recorded Sex Assigned at Not on file Gender Identity Not on file Sexual Orientation Not on file documented as of this encounter Miscellaneous Notes * Telephone Encounter - Ivory Kramer - 09/04/2021 10:40 AM EDT Attempt to reach patient. No answer/ Unable to leave a message at this time. documented in this encounter Plan of Treatment Not on file documented as of this encounter Visit Diagnoses Not on filedocumented in this encounter
--- OUTSIDE RECORDS SUMMARY | 2024-03-30 17:37 | XMS_ITS | Encounter Summary ---
Author Organization [facility] Address [address] [place] [address] Care Team Providers Care Lead Laying And Gluing Machine Operator Name Role Phone Unavailable Primary Care Provider Unavailabl e Encounter Details Date Type Department Care Team (Late st Contact Info) Description 12/24/2020 5:36 PM EDT - 12/24/2020 11:59 PM EDT Hospital Encounter [facility] [address] [place] [id number] Arya Carl II, DO [address] [facility] [address] [place] [address] Cough with exposure to COVID-19 virus Discharge Disposition: Home or Self [...] PM EDT documented as of this encounter Medications [...] Comments SARS-COV-2, QL, PCR (ROUTINE/OUTPATIENT ) Routine 12/24/2020 5:36 PM EDT Cough with exposure to COVID-19 virus documented in this encounter Results * SARS-CoV-2, QL, PCR (Routine/Outpatient) (12/24/2020 5:36 PM EDT) SARS-CoV-2 RNA Undetected Undetected 12/25/2020 2:06 AM EDT [facility] Comment: Testing was performed using the [employer] Kim Direct. Fact sheets for this Emergency Use Authorization (EUA) assay can be found at the following links: ?? For Healthcare Providers: https://www.fda.gov/media/766914/download ?? For Patients: https://www.fda.gov/media/339331/download Test Performed by: [facility],[address] [place] [address], Furnace Stock Inspector: Alex Castillo D.O.; ??CLIA#: [id number] Throat (Throat) 12/24/2020 5 :36 PM EDT 12/24/2020 9:25 PM EDT Narrative [facility] - 12/25/2020 2:06 AM EDT Symptomatic?->No Indications (select all that apply)->Asymptomatic - community/general population Was specimen collected by a [facility] steam table associate?->Yes NO KNOWN ALLERGIES Arya Carl II, DO MICROBIOLOGY - G ENERAL ORDERABLES [facility] [address] [place] [address] [place] [address]. [place] [address] documented in this encounter Visit Diagnoses Diagnosis Cough with exposure to COVID-19 virus documented in this encounter
--- OUTSIDE RECORDS SUMMARY | 2024-03-30 17:37 | XMS_ITS | Encounter Summary ---
Author Organization [facility] Address [address] [place] [address] Care Team Providers Care Presser Machine Name Role Phone Unavailable Primary Care Provider Unavailabl e Encounter Details Date Type Department Care Team (Late st Contact Info) Description 06/14/2020 3:36 PM EST - 06/14/2020 11:59 PM EST Hospital Encounter [facility] [address] [place] [id number] Sanna Peguero, MARKETING SUPPORT MANAGER [address] [place] [address] Contact with and (suspected) exposure to covid-19 Discharge Disposition: Home or Self Care Social [...] PM EST documented as of this encounter Medications at [...] Comments SARS-COV-2, QL, PCR (ROUTINE/OUTPATIENT ) Routine 06/14/2020 3:36 PM EST Contact with and (suspected) exposure to covid-19 documented in this encounter Results * SARS-CoV-2, QL, PCR (Routine/Outpatient) (06/14/2020 3:36 PM EST) SARS-CoV-2 RNA Undetected Undetected 06/15/2020 2:54 AM EST [facility] Comment: Testing was performed using the [employer] Kim Direct. Fact sheets for this Emergency Use Authorization (EUA) assay can be found at the following links: ?? For Healthcare Providers: https://www.fda.gov/media/316685/download ?? For Patients: https://www.fda.gov/media/022036/download Test Performed by: [facility],[address] [place] [address], Caustic Mixer: Belem Rivas MD; ??CLIA#: [id number] Throat (Throat) 06/14/2020 3 :36 PM EST 06/14/2020 9:45 PM EST Narrative [facility] - 06/15/2020 2:54 AM EST Symptomatic?->No Indications (select all that apply)->Close contact with positive COVID-19 Indications (select all that apply)->Asymptomatic - community/general population Was specimen collected by a [facility] sales team manager?->Yes NO KNOWN ALLERGIES Sanna Peguero MARKETING SUPPORT MANAGER MICROBIOLOGY - GENER AL ORDERABLES [facility] [address] [place] [address] [place] [address] documented in this encounter Visit Diagnoses Diagnosis Contact with and (suspected) exposure to covid-19 documented in this encounter
--- OUTSIDE RECORDS SUMMARY | 2024-03-30 17:37 | XMS_ITS | Encounter Summary ---
Author Organization [facility] Address [address] [place] [id number] Care Team Providers Care Chain Saw Driver Name Role Phone Unavailable Primary Care Provider Unavailabl e Reason for Referral * Consultation (Routine) - Closed Specialty Diagnoses / Procedures Referred By Glory t Referred To Contact Gastroenterology Diagnoses Nausea Montse Montiel APRN [address] [place] [address] Rosalva Diez MD [address] [place] [address] Referral ID Status Reason Start Date Expiration Date V isits Requested Visits Authorized [id number] Closed Specialty Services Required 11/30/2021 11/30/2022 1 1 Encounter Details Date Type Department Care Team (Late st Contact Info) Description 11/30/2021 Transcribe Orders Patient Access Center [address] [place] [address] Montse Montiel APRN [address] [place] [address] Nausea (Primary Dx) Social History Tobacco Use Types Packs/Day Years Used Date Smoking Tobacco: Never Smokeless Tobacco: Never Sex and Gender Information Value Date Recorded Sex Assigned at Not on file Gender Identity Not on file Sexual Orientation Not on file documented as of this encounter Plan of Treatment Scheduled Referrals Name Type Priority Associated Diagnoses Order Schedule Ambulatory referral to Gastroenterology Outpatient Referral Routine Nausea Ordered: 11/30/2021 documented as of this encounter Visit Diagnoses Diagnosis Nausea- Primary Nausea alone documented in this encounter
--- OUTSIDE RECORDS SUMMARY | 2024-03-30 17:37 | XMS_ITS | Encounter Summary ---
Author Organization [facility] Address [address] [place] [address] Care Team Providers Care Drupal Developer Name Role Phone Unavailable Primary Care Provider Unavailabl e Encounter Details Date Type Department Care Team (Late st Contact Info) Description 08/12/2020 Orders Only [facility] [address] [place] [address], [address] [place] [address] Grupo Murrieta MD [address] [place] [address] Social History Tobacco Use Types Packs/Day Years [...]
--- OUTSIDE RECORDS SUMMARY | 2024-03-30 17:37 | XMS_ITS | Encounter Summary ---
Author Organization [facility] Address [address] [place] [address] Care Team Providers Care Curb And Gutter Laborer Name Role Phone Montse Montiel APRN Primary Care Provider [phone] Radha Griffin APRN Unavailable [phone] Encounter Details Date Type Department Care Team (Latest Contact Info) Description 03/10/2022 Travel Social History Tobacco Use Types Packs/Day [...] on filedocumented in this encounter Care Teams Curb And Gutter Laborer Relationship Specialty Start Date End Date Montse Montiel APRN [address] [place] [address] PCP - General Nurse Practitioner 02/06/22 Radha Griffin APRN [address] [place] [address] [address] [facility] [address] [place] [address] Nurse Practitioner Gastroenterology 02/06/22 documented as of this encounter
--- OUTSIDE RECORDS SUMMARY | 2024-03-30 17:37 | XMS_ITS | Encounter Summary ---
Author Organization [facility] Address [address] [place] [address] Care Team Providers Care Science Technicians Name Role Phone Montse Montiel PUBLIC RELATIONS ACCOUNT SUPERVISOR Primary Care Provider [phone] Radha Griffin PUBLIC RELATIONS ACCOUNT SUPERVISOR Unavailable [phone] Encounter Details Date Type Department Care Team (Latest Contact Info) Description 02/06/2022 Travel Social History Tobacco Use Types Packs/Day [...] filedocumented in this encounter Care Teams Science Technicians Relationship Specialty Start Date End Date Montse Montiel APRN [address] [place] [address] PCP - General Nurse Practitioner 02/06/22 Radha Griffin APRN [address] [address] [facility] [address] [place] [address] Nurse Practitioner Gastroenterology 02/06/22 documented as of this encounter
--- OUTSIDE RECORDS SUMMARY | 2024-03-30 17:37 | XMS_ITS | Encounter Summary ---
Author Organization [facility] Address [address] [place] [address] Care Team Providers Care Burglary Investigator Name Role Phone Montse Montiel APRN Primary Care Provider [phone] Radha Griffin DOCK SUPERINTENDENT Unavailable [phone] Rosalva Diez MD Unavailable [phone] Encounter Details Date Type Department Care Team (Late st Contact Info) Description 01/13/2021 Telephone Patient Access Center [address] [place] [address] Sanna Peguero, DOCK SUPERINTENDENT [address] [place] [address] Social History Tobacco Use Types Packs/Day Years [...] on filedocumented in this encounter Care Teams Burglary Investigator Relationship Specialty Start Date End Date Montse Montiel APRN [address] [place] [address] PCP - General Nurse Practitioner 02/06/22 Radha Griffin APRN [address] [place] [address] [address] [facility] [address] [place] [address] Nurse Practitioner Gastroenterology 02/06/22 Rosalva Diez MD [address] [place] [address] [place] [address] Gastroenterology 03/13/22 documented as of this encounter
--- OUTSIDE RECORDS SUMMARY | 2024-03-30 17:37 | XMS_ITS | Encounter Summary ---
Author Organization [facility] Address [address] [place] [address] Care Team Providers Care Water Safety Teacher Name Role Phone Montse Montiel BAKER SECOND Primary Care Provider Radha Griffin APRN Unavailable [phone] Rosalva Diez MD Unavailable Reason for Visit * Reason Comments Abdominal Pain Encounter Details Date Type Department Care Team (Late st Contact Info) Description 03/15/2022 11:12 AM EDT - 03/15/2022 2:45 PM EDT Emergency Emergency Department [address] [place] [address] Je Taylor MD [address] [place], [place] [id number] Constipation (Primary Dx); Closed head injury with brief loss of consciousness Discharge Disposition: Home or Self Care Social [...] Sign Reading Time Taken Comments Blood Pressure 100/60 03/15/2022 2:15 PM EDT Pulse 76 03/15/2022 2:15 PM EDT Temperature 36.9 ??C (98.4 ??F) 03/15/2022 1 1:08 AM EDT Respiratory Rate 18 03/15/2022 11:0 8 AM EDT Oxygen Saturation 100% 03/15/2022 2:15 PM EDT Inhaled Oxygen Concentration - - Weight 67.9 kg (149 lb 11.2 oz) 022 11:08 AM EDT Height - - Body Mass Index 22.76 03/12/2022 8:42 AM EDT documented in this encounter Discharge Instructions * Attachments The following attachments cannot be sent through Care Everywhere. * Constipation (AfterCare(R) Instructions(ER/ED)) (Lao) documented in this encounter Medications at Time of Discharge Medication Sig Dispensed Refills Start Date End Date ISIBLOOM 0.15-0.03 mg Tab TAKE 1 TABLET BY MOUTH EVERY DAY 05/26/2021 docusate sodium (COLACE) 100 mg capsuleIndications:Cons tipation Take 1 Capsule by mouth Twice a day for 7 days. 14 Capsule 03/15/2022 03/22/2022 omeprazole (PRILOSEC) [address] capsuleIndications:Naus ea,Upper abdominal pain,Nausea,Upper abdominal pain Take [...] 12/29/2017 10/11/2022 documented as of this encounter ED Notes * Carmen Loco RN - 03/15/2022 1:17 PM EDT Patient transported to [place] at this time * Ernesto Phelps RN - 03/15/2022 12:33 PM EDT Patient had syncopal episode, hit head on floor, provider notified. * Ernesto Phelps RN - 03/15/2022 12:14 PM EDT Patient to [facility] with complaint of abdominal pain, states she had endoscopy on Saturday and pain is midabdomen, rates pain as a 7/10. Patient is AOX3, skin pwd, RR even/unlabored. * Je Taylor MD - 03/15/2022 11:06 AM EDT Layla Cedeño [[id number]] (F) - 21 y.o. Note Creation:03/15/2022 Encounter Date:03/15/2022 History Chief Complaint Patient presents with ??? Abdominal Pain Layla Cedeño is a 21 y.o. female with hx of anxiety who presents to the ED with c/o upperabd pain that began 2 days ago after having an EGD. She also c/o nausea and a decreased appetite. Pt reports that her EGD was performed by Dr. Diez, Financial Aid Officer. She denies fever, vomiting,diarrhea, flank pain, dysuria, or any other pertinent symptoms or concerns. She denies any other aggravating or alleviating factors. She denies any other pertinent PMHx. The history is provided by the patient and medical records. Past Medical History: Diagnosis Date ??? Anxiety Past Surgical History: Procedure Laterality Date ??? HX EGJ N/A 03/12/2022 EGD /C BIOPSY performed by Rosalva Diez MD at [facility] No family history on file. Social History Tobacco Use ??? Smoking status: Never Smoker ??? Smokeless tobacco: Never Used Substance Use Topics ??? Alcohol use: Never ??? Drug use: Never Patient is not a tobacco user. No LMP recorded. No Known Allergies Current Outpatient Medications on File Prior to Encounter Medication Sig ??? omeprazole (PRILOSEC) [address] capsule Take 1 Capsule by mouth Once Daily. ??? cyproheptadine (PERIACTIN) 4 mg tablet Take 1 Tablet by mouth Three times a day. ??? FLUoxetine (PROZAC) 20 mg tablet Take 20 mg by mouth Once Daily. ??? ISIBLOOM 0.15-0.03 mg Tab TAKE 1 TABLET BY MOUTH EVERY DAY ??? hydrOXYzine pamoate (VISTARIL) 25 mg capsule Take 1 Cap by mouth Every 6 hours as needed for Itching. Review of Systems Review of Systems Constitutional: Negative for activity change, appetite change, chills, fatigue and fever. HENT: Negative for congestion, ear pain, rhinorrhea, sore throat and trouble swallowing. Eyes: Negative for photophobia and visual disturbance. Respiratory: Negative for cough, chest tightness, shortness of breath and wheezing. Cardiovascular: Negative for chest pain and palpitations. Gastrointestinal: Positive for abdominal pain and nausea. Negative for diarrhea and vomiting. Endocrine: Negative for polydipsia, polyphagia and polyuria. Genitourinary: Negative for decreased urine volume, difficulty urinating, dysuria, flank pain, hematuria and urgency. Musculoskeletal: Negative for arthralgias and myalgias. Skin: Negative for rash. Neurological: Negative for dizziness, weakness, light-headedness and headaches. Physical Exam ED Triage Vitals [03/15/22 1108] BP BP Manual or Automatic? Patient Position BP Location Heart Rate (Monitor) 108/73 Automatic Sitting Right Arm -- Pulse Pulse Source Respirations Temp Temp Source (!) 126 -- 18 98.4 ??F (36.9 ??C) Oral SpO2 SPO2 Location O2 Delivery O2 Device O2 Flow Rate (l/min) 100 % -- Room air -- -- FIO2 (%) Pain Intensity 1 Exacerbated By Relieved By Quality -- 7 -- -- -- Duration -- Physical Exam Vitals and nursing note reviewed. Constitutional: General: She is not in acute distress. Appearance: Normal appearance. She is not ill-appearing. HENT: Head: Normocephalic and atraumatic. Jaw: There is normal jaw occlusion. Right Ear: External ear normal. Left Ear: External ear normal. Nose: Nose normal. Mouth/Throat: Lips: [employer]. Mouth: Mucous membranes are moist. Eyes: General: Lids are normal. Extraocular Movements: Extraocular movements intact. Conjunctiva/sclera: Conjunctivae normal. Pupils: Pupils are equal, round, and reactive to light. Neck: Vascular: No JVD. Trachea: No tracheal deviation. Cardiovascular: Rate and Rhythm: Normal rate and regular rhythm. Pulses: Normal pulses. Heart sounds: Normal heart sounds. No murmur heard. Pulmonary: Effort: Pulmonary effort is normal. No respiratory distress or retractions. Breath sounds: Normal breath sounds. No wheezing or rales. Abdominal: General: Abdomen is flat. There is no distension. Palpations: Abdomen is soft. Tenderness: There is no abdominal tenderness. Musculoskeletal: General: No deformity or signs of injury. Normal range of motion. Cervical back: Normal range of motion and neck supple. Skin: General: Skin is warm and dry. Capillary Refill: Capillary refill takes less than 2 seconds. Neurological: General: No focal deficit present. Mental Status: She is alert. Cranial Nerves: No cranial nerve deficit. Motor: No weakness. Coordination: Coordination normal. Psychiatric: Mood and Affect: Mood normal. Behavior: Behavior normal. MDM Treatment: Procedures Medications morphine injection 4 mg (has no administration in time range) ondansetron hcl (PF) (ZOFRAN) injection 4 mg (has no administration in time range) famotidine (PF) (PEPCID) injection 20 mg (20 mg Intravenous Given 03/15/22 1220) alum-mag hydroxide-simeth (MAALOX MAX STRENGTH) 400-400-40 mg/5 mL susp 15 mL (15 mL Oral Given 03/15/22 1239) lidocaine (XYLOCAINE VISCOUS) 2 % mucosal soln 15 mL (15 mL Mucous Membrane Given 03/15/22 1239) NS (sodium chloride 0.9%) IV bolus (0 mL Intravenous Stopped 03/15/22 1322) Results for orders placed or performed during the hospital encounter of 03/15/22 CBC Result Value Ref Range WBC 5.6 4.5 - 11.0 10*3/uL RBC 4.27 4.00 - 5.20 10*6/uL HGB 12.2 12.0 - 16.0 g/dL HCT 37.4 33.0 - 51.0 % MCV 87.5 80.0 - 100.0 fL MCHC 32.7 32.0 - 36.0 g/dL MCH 28.6 26.0 - 34.0 pg RDW 12.8 10.7 - 18.7 % MPV 8.0 6.5 - 10.0 fL Platelet Cnt 280 150 - 450 10*3/uL Differential Type Auto Neutrophils 63.0 35.0 - 66.0 % Lymphocytes 27.5 24.0 - 44.0 % Monocytes 7.2 2.1 - 13.3 % Eosinophils 1.9 0.3 - 5.0 % Basophils 0.4 0.0 - 1.0 % Neutrophils Abs 3.5 1.5 - 8.5 10*3/uL Lymphocytes Abs 1.5 1.1 - 5.0 10*3/uL Monocytes Abs 0.4 0.0 - 1.4 10*3/uL Eosinophils Abs 0.1 0.0 - 0.5 10*3/uL Basophils Abs 0.0 0.0 - 0.1 10*3/uL MDW 15.8 0.0 - 20.0 Comprehensive Metabolic Panel Result Value Ref Range SODIUM 136 135 - 145 mmol/L POTASSIUM 4.3 3.6 - 5.0 mmol/L CHLORIDE 106 101 - 111 mmol/L CO2 24 21 - 31 mmol/L ANION GAP 6 GLUCOSE 91 70 - 110 mg/dL CREATININE 0.8 0.4 - 1.0 mg/dL BUN 17 2 - 32 mg/dL CALCIUM 9.1 8.5 - 10.5 mg/dL PROTEIN TOTAL 7.4 6.1 - 7.8 g/dL Albumin 4.1 3.2 - 5.0 g/dL T BILIRUBIN 0.4 0.2 - 1.0 mg/dL ALP 36 (L) 42 - 121 [iU]/L AST 19 10 - 42 [iU]/L ALT (SGPT) 11 10 - 60 [iU]/L OSMOLALITY 273 266 - 309 A/G Ratio 1.2 B/C 21 (H) 10 - 20 ESTIMATED GFR 89 mL/min Lipase Result Value Ref Range LIPASE 20 11 - 82 U/L Test, Qual. Result Value Ref Range TEST, SERUM NEGATIVE NEGATIVE Results CT Abdomen & Pelvis-NO CONTRAST (Final result) Result time 03/15/22 14:12:50 Final result Narrative: [facility] [address] [place] [address] Radiology PATIENT NAME: Layla Cedeño MR#: [id number] PROCEDURE DATE: 03/15/2022 ROOM#: 03 ORDERING PHYS: Je aTylor MD EXAM: CT abdomen and pelvis without contrast. INDICATION: Abdominal pain. History of recent EGD. COMPARISON: None. TECHNIQUE: Axial CT exam of the abdomen and pelvis was performed without intravenous contrast. Coronal and sagittal reformatted images are also provided. Radiation dose reduction methods were employed. FINDINGS: Limitations: Lack of oral and intravenous contrast limits evaluation of the abdominal viscera and vasculature. Within this limitation, the following observations are made: Lower chest: Within normal limits. Incidental note of calcified granuloma on the right. Liver: Within normal limits. Gallbladder: Within normal limits. Pancreas: Within normal limits. Spleen: Within normal limits. Adrenals: Within normal limits. Kidneys: Within normal limits. No radiopaque renal or ureteral calculi. No hydronephrosis or hydroureter. Stomach: Grossly unremarkable. Small bowel: Grossly unremarkable. No dilated loops of bowel are seen. Appendix: Within normal limits. Large bowel: There is an overall mild stool burden within the colon. A larger volume of stool is seen distending the rectum. Otherwise, grossly unremarkable. Urinary bladder: Grossly unremarkable. Reproductive organs: Grossly unremarkable. Vasculature: Grossly unremarkable. Lymph nodes: Scattered small nodes are seen. No definite pathologically enlarged lymphadenopathy. Abdominal wall: No acute abnormality. Osseous structures: No acute abnormality. IMPRESSION: No acute process is identified within the abdomen or pelvis. Stool burden within the colon as above, which may potentially suggest a degree of constipation, correlate clinically. Other chronic or incidental findings as above. THIS IS AN ELECTRONICALLY VERIFIED REPORT 03/15/2022 2:10 PM: MD Osiel Cottrell MD TD: 03/15/2022 JOB #: [id number] Radiology Page [address] Head WO Contrast (Final result) Result time 03/15/22 14:04:47 Final result Narrative: [place] [address] Radiology PATIENT NAME: Layla Cedeño MR#: [id number] PROCEDURE DATE: 03/15/2022 ROOM#: 03 ORDERING PHYS: Je Taylor MD EXAM: CT head without contrast. INDICATION: Syncopal episode with fall and associated head injury. COMPARISON: None. TECHNIQUE: Axial imaging of the brain was performed without intravenous contrast. Coronal and sagittal reformatted images were provided. Radiation dose reduction methods were employed. FINDINGS: Parenchymal volume is within normal limits for age. The ventricles are normal in size and configuration. No focal areas of abnormal attenuation or loss of hammonds-white matter differentiation are identified. There is no evidence of intracranial hemorrhage. No evidence of mass effect or midline shift is identified. The structures of the brain stem and posterior fossa appear grossly unremarkable. No significant vascular calcification is seen. The paranasal sinuses appear clear and well-aerated. The mastoid air cells are well-aerated. The calvarium is within normal limits. The extracranial soft tissues demonstrate no significant abnormality. IMPRESSION: No acute intracranial process is identified. THIS IS AN ELECTRONICALLY VERIFIED REPORT 03/15/2022 2:01 PM: MD Osiel Cottrell MD TD: 03/15/2022 JOB #: [id number] Radiology Page 1 of 1 COPY 12 Lead EKG - Emergency Department (Final result) Result time 03/15/22 14:06:19 Final result Narrative: [facility] ED Test Date: 2022-03-15 Pat Name: [facility] Department: EMERGENCY DEPARTMENT Room: 03 Gender: Female Medical Insurance Verifier: chelsea : 2000 Requested By: JE TAYLOR Order Number: [id number] Reading MD: Kevin Moreno MD Measurements Intervals Mcguffey Rate: 80 P: 46 MT: 151 QRS: 100 QRSD: 102 T: 35 QT: 384 QTc: 443 Interpretive Statements Sinus rhythm Borderline right axis deviation Compared to ECG 07/02/2021 18:31:55 Sinus tachycardia no longer present Atrial abnormality no longer present T-wave abnormality no longer present Electronically Signed On 03-15-2022 14:06:16 EDT by Kevin Moreno MD Preliminary result Narrative: [facility] ED Test Date: 2022-03-15 Pat Name: LAYLA NORCROSS Department: EMERGENCY DEPARTMENT Room: 03 Gender: Female Medical Insurance Verifier: chelsea : 2000 Requested By: JE TAYLOR Order Number: [id number] Reading MD: Measurements Intervals Mcguffey Rate: 80 P: 46 MT: 151 QRS: 100 QRSD: 102 T: 35 QT: 384 QTc: 443 Interpretive Statements Sinus rhythm Borderline right axis deviation Plan: [facility] ED RECHECK: Discharge: The pt is awake, alert and well appearing at time of reevaluation. I spoke with the patient about her ED work up, diagnosis and any further treatment. I discussed the importance of following up with her PCP. I instructed her to return to the Emergency Room for new or worsening symptoms. All of the pt's questions were answered. The patient verbalized understanding. The patient is stable at time of discharge. MDM Number of Diagnoses or Management Options Progress Note: ED Course as of 03/15/22 1637 Danna Mar 15, 2022 1423 Pt had syncopal and hit her head while in department, provider ordered head CT. [JA] ED Course User Index [JA] Krystina Chamberlain ED Prescriptions Medication Sig Dispense Start Date End Date Auth. Provider docusate sodium (COLACE) 100 mg capsule Take 1 Capsule by mouth Twice a day for 7 days. 14 Capsule 03/15/2022 03/22/2022 Je Taylor MD Final diagnoses: Constipation Closed head injury with brief loss of consciousness ED Disposition ED Disposition Discharged Condition Stable Comment -- Follow-up Information Emergency Department. Specialty: Emergency Medicine Why: As needed Contact information: [address] [place] [phone] Additional information: See [email or web address] Montse Montiel APRN. Specialties: Nurse Practitioner, Family Practice Why: If symptoms worsen Contact information: [address] [facility] [address] Discharge References/Attachments Constipation (AfterCare(R) Instructions(ER/ED)) (Lao) Scribe Attestation: Krystina Chamberlain acting as scribe for and in the presence of Je Taylor MD Electronically Signed By Krystina Chamberlain 03/15/22 11:06 AM Provider Attestation: I personally performed the services described in the documentation, reviewed the documentation recorded by the scribe in my presence and it accurately and completely records my words and actions. documented in this encounter Plan of Treatment Not on file documented as of this encounter Procedures Procedure Name Priority Date/Time Associated Diagnosis Comments CT ABDOMEN & PELVIS-NO CONTRAST STAT 03/15/2022 1:[address] HEAD WO CONTRAST STAT 03/15/2022 1 :24 PM EDT EKG 12-LEAD (ED) STAT 03/15/2022 1:13 PM EDT COMPREHENSIVE METABOLIC PANEL STAT 03/15/2022 11:32 AM EDT CBC W/DIFFERENTIAL STAT 03/15/2022 11 :32 AM EDT TEST SERUM Today 03/15/2022 11:32 AM EDT LIPASE STAT 03/15/2022 11:32 AM EDT documented in this encounter Results * CT Abdomen & Pelvis-NO CONTRAST (03/15/2022 1:29 PM EDT) Anatomical Region Laterality Modality Abdomen, Pelvis, hip Computed To mography 03/15/2022 Narrative 03/15/2022 2:10 PM EDT ?[facility] ?[address] ?[place] [address] ?Radiology PATIENT NAME: ??Layla Cedeño ?MR#: ??[id number] PROCEDURE DATE: ??03/15/2022 ?ROOM#: ??03 ORDERING PHYS: ??Je Taylor MD EXAM: ??CT abdomen and pelvis without contrast. INDICATION: ??Abdominal pain. ??History of recent EGD. COMPARISON: ?? None. TECHNIQUE: ??Axial CT exam of the abdomen and pelvis was performed without intravenous contrast. ??Coronal and sagittal reformatted images are also provided. ??Radiation dose reduction methods were employed. FINDINGS: Limitations: Lack of oral and intravenous contrast limits evaluation of the abdominal viscera and vasculature. ??Within this limitation, the following observations are made: Lower chest: Within normal limits. ??Incidental note of calcified granuloma on the right. Liver: ??Within normal limits. Gallbladder: ??Within normal limits. Pancreas: ??Within normal limits. Spleen: ??Within normal limits. Adrenals: ??Within normal limits. Kidneys: Within normal limits. ??No radiopaque renal or ureteral calculi. ??No hydronephrosis or hydroureter. Stomach: ??Grossly unremarkable. Small bowel: ??Grossly unremarkable. ??No dilated loops of bowel are seen. Appendix: Within normal limits. Large bowel: There is an overall mild stool burden within the colon. ??A larger volume of stool is seen distending the rectum. ??Otherwise, grossly unremarkable. Urinary bladder: ??Grossly unremarkable. Reproductive organs: Grossly unremarkable. Vasculature: Grossly unremarkable. Lymph nodes: Scattered small nodes are seen. ??No definite pathologically enlarged lymphadenopathy. Abdominal wall: No acute abnormality. Osseous structures: No acute abnormality. IMPRESSION: No acute process is identified within the abdomen or pelvis. Stool burden within the colon as above, which may potentially suggest a degree of constipation, correlate clinically. Other chronic or incidental findings as above. ?THIS IS AN ELECTRONICALLY VERIFIED REPORT ?03/15/2022 2:10 PM: ??MD Osiel Cottrell MD DD: ??03/15/2022 TD: ??03/15/2022 JOB #: ??[id number] ? Radiology Page 1 ?of ?? 1 ?COPY Procedure Note Osiel Collins MD - 03/15/2022 [place] [address] Radiology PATIENT NAME: Layla Cedeño MR#: [id number] PROCEDURE DATE: 03/15/2022 ROOM#: 03 ORDERING PHYS: Je Taylor MD EXAM: CT abdomen and pelvis without contrast. INDICATION: Abdominal pain. History of recent EGD. COMPARISON: None. TECHNIQUE: Axial CT exam of the abdomen and pelvis was performedwithout intravenous contrast. Coronal and sagittal reformatted images are also provided. Radiation dose reduction methods were employed. FINDINGS: Limitations: Lack of oral and intravenous contrast limits evaluation ofthe abdominal viscera and vasculature. Within this limitation, thefollowing observations are made: Lower chest: Within normal limits. Incidental note of calcified granulomaon the right. Liver: Within normal limits. Gallbladder: Within normal limits. Pancreas: Within normal limits. Spleen: Within normal limits. Adrenals: Within normal limits. Kidneys: Within normal limits. No radiopaque renal or ureteral calculi.No hydronephrosis or hydroureter. Stomach: Grossly unremarkable. Small bowel: Grossly unremarkable. No dilated loops of bowel are seen. Appendix: Within normal limits. Large bowel: There is an overall mild stool burden within the colon. A larger volume of stool is seen distending the rectum. Otherwise,grossly unremarkable. Urinary bladder: Grossly unremarkable. Reproductive organs: Grossly unremarkable. Vasculature: Grossly unremarkable. Lymph nodes: Scattered small nodes are seen. No definite pathologically enlarged lymphadenopathy. Abdominal wall: No acute abnormality. Osseous structures: No acute abnormality. IMPRESSION: No acute process is identified within the abdomen or pelvis. Stool burden within the colon as above, which may potentially suggest a degree of constipation, correlate clinically. Other chronic or incidental findings as above. THIS IS AN ELECTRONICALLY VERIFIED REPORT 03/15/2022 2:10 PM: MD Osiel Cottrell MD TD: 03/15/2022 JOB #: [id number] Radiology Page 1 of 1COPY Je Taylor MD IMG CT ORDERABLES * CT Head WO Contrast (03/15/2022 1:24 PM EDT) Anatomical Region Laterality Modality Head Computed Tomogra phy 03/15/2022 Narrative 03/15/2022 2:01 PM EDT ?[facility] ?[address] ?[place] [address] ?Radiology PATIENT NAME: ??Layla Cedeño ?MR#: ??[id number] PROCEDURE DATE: ??03/15/2022 ?ROOM#: ??03 ORDERING PHYS: ??Je Taylor MD EXAM: ??CT head without contrast. INDICATION: ??Syncopal episode with fall and associated head injury. COMPARISON: ??None. TECHNIQUE: ??Axial imaging of the brain was performed without intravenous contrast. ??Coronal and sagittal reformatted images were provided. ??Radiation dose reduction methods were employed. FINDINGS: Parenchymal volume is within normal limits for age. ??The ventricles are normal in size and configuration. ??No focal areas of abnormal attenuation or loss of hammonds-white matter differentiation are identified. There is no evidence of intracranial hemorrhage. ??No evidence of mass effect or midline shift is identified. The structures of the brain stem and posterior fossa appear grossly unremarkable. ??No significant vascular calcification is seen. The paranasal sinuses appear clear and well-aerated. ??The mastoid air cells are well-aerated. ??The calvarium is within normal limits. ??The extracranial soft tissues demonstrate no significant abnormality. IMPRESSION: No acute intracranial process is identified. ?THIS IS AN ELECTRONICALLY VERIFIED REPORT ?03/15/2022 2:01 PM: ??MD Osiel Cottrell MD DD: ??03/15/2022 TD: ??03/15/2022 JOB #: ??[id number] ? Radiology Page 1 ?of ?? 1 ?COPY Procedure Note Osiel Collins MD - 03/15/2022 [place] [address] Radiology PATIENT NAME: Layla Cedeño MR#: [id number] PROCEDURE DATE: 03/15/2022 ROOM#: 03 ORDERING PHYS: Je Taylor MD EXAM: CT head without contrast. INDICATION: Syncopal episode with fall and associated head injury. COMPARISON: None. TECHNIQUE: Axial imaging of the brain was performed without intravenous contrast. Coronal and sagittal reformatted images were provided.Radiation dose reduction methods were employed. FINDINGS: Parenchymal volume is within normal limits for age. The ventricles are normal in size and configuration. No focal areas of abnormal attenuationor loss of hammonds-white matter differentiation are identified. There is no evidence of intracranial hemorrhage. No evidence of masseffect or midline shift is identified. The structures of the brain stem and posterior fossa appear grossly unremarkable. No significant vascular calcification is seen. The paranasal sinuses appear clear and well-aerated. The mastoid aircells are well-aerated. The calvarium is within normal limits. Theextracranial soft tissues demonstrate no significant abnormality. IMPRESSION: No acute intracranial process is identified. THIS IS AN ELECTRONICALLY VERIFIED REPORT 03/15/2022 2:01 PM: MD Osiel Cottrell MD TD: 03/15/2022 JOB #: [id number] Radiology Page 1 of 1COPY Je Taylor MD IMG CT ORDERABLES * 12 Lead EKG - Emergency Department (03/15/2022 1:13 PM EDT) 03/15/2022 1:13 PM EDT Narrative EPIPHANY - 03/15/2022 2:06 PM EDT ?[facility] ED ? Test Date: ?2022-03-15 Pat Name: ? LAYLA CEDEÑO ? Department: ?? EMERGENCY DEPARTMENT ? Room: ? 03 Gender: ? Female ? Medical Insurance Verifier: ?? rb : ?2000 ? Requested By: JE TAYLOR Order Number: [id number] ?Reading : ?? Kevin Moreno MD ? Measurements Intervals ?Mcguffey ? Rate: ? 80 ? P: ?46 MT: ? 151 ?QRS: ?100 QRSD: ? 102 ?T: ?35 QT: ? 384 ? QTc: ?443 ? Interpretive Statements Sinus rhythm Borderline right axis deviation Compared to ECG 07/02/2021 18:31:55 Sinus tachycardia no longer present Atrial abnormality no longer present T-wave abnormality no longer present Electronically Signed On 03-15-2022 14:06:16 EDT by Kevin Moreno MD Procedure Note Kevin Moreno MD - 03/15/2022 [facility] ED Test Date: 2022-03-15 Pat Name: LAYLA CEDEÑO Department: EMERGENCYDEPARTMENT Room: 03 Gender: Female Medical Insurance Verifier: chelsea : 2000 Requested By: JE TAYLOR Order Number: [id number] Reading MD: Kevin Ladd Measurements Intervals Mcguffey Rate: 80 P: 46 MT: 151 QRS: 100 QRSD: 102 T: 35 QT: 384 QTc: 443 Interpretive Statements Sinus rhythm Borderline right axis deviation Compared to ECG 07/02/2021 18:31:55 Sinus tachycardia no longer present Atrial abnormality no longer present T-wave abnormality no longer present Electronically Signed On 03-15-2022 14:06:16 EDT by Kevin Moreno MD Je Taylor MD EKG ORDERABLES Performing Organization Address City/[facility] Co de Phone Number EPIPHANY * Test, Qual. (03/15/2022 11:32 AM EDT) TEST, SERUM NEGATIVE NEGATIVE 03/15/2022 12:26 PM EDT [facility] 03/15/2022 11:3 2 AM EDT 03/15/2022 11:47 AM EDT Narrative [facility] - 03/15/2022 12:26 PM EDT NO KNOWN ALLERGIES Je Taylor MD CHEMISTRY ORDERABLES Performing Organization Address [facility] de Phone Number [facility] [address] [place], [place] [id number] [place] [address] LAB [address] [place] [address] * Lipase (03/15/2022 11:32 AM EDT) LIPASE 20 11 - 82 U/L 03/15/2022 12:25 PM EDT [facility] 03/15/2022 11:3 2 AM EDT 03/15/2022 11:48 AM EDT Narrative [facility] - 03/15/2022 12:25 PM EDT NO KNOWN ALLERGIES Je Taylor MD CHEMISTRY ORDERABLES Performing Organization Address City/State/[facility] Co de Phone Number [facility] [address] [place] [address] [facility] [address] [place] [address] * (ABNORMAL) Comprehensive Metabolic Panel (03/15/2022 11:32 AM EDT) SODIUM 136 135 - 145 mmol/L 03/15/2022 12:25 PM EDT [facility] POTASSIUM 4.3 3.6 - 5.0 mmol/L 03/15/2022 12:25 PM EDT [facility] CHLORIDE 106 101 - 111 mmol/L 03/15/2022 12:25 PM EDT [facility] CO2 24 21 - 31 mmol/L 03/15/2022 12:25 PM EDT [facility] ANION GAP 6 03/15/2022 12:25 PM EDT [facility] GLUCOSE 91 70 - 110 mg/dL 03/15/2022 12:25 PM EDT [facility] CREATININE 0.8 0.4 - 1.0 mg/dL 03/15/2022 12:25 PM EDT [facility] BUN 17 2 - 32 mg/dL 03/15/2022 12:25 PM EDT [facility] CALCIUM 9.1 8.5 - 10.5 mg/dL 03/15/2022 12:25 PM EDT [facility] PROTEIN TOTAL 7.4 6.1 - 7.8 g/dL 03/15/2022 12:25 PM EDT [facility] Albumin 4.1 3.2 - 5.0 g/dL 03/15/2022 12:25 PM EDT [facility] T BILIRUBIN 0.4 0.2 - 1.0 mg/dL 03/15/2022 12:25 PM EDT [facility] ALP 36(L) 42 - 121 [iU]/L 03/15/2022 12:25 PM EDT [facility] AST 19 10 - 42 [iU]/L 03/15/2022 12:25 PM EDT [facility] ALT (SGPT) 11 10 - 60 [iU]/L 03/15/2022 12:25 PM EDT [facility] OSMOLALITY 273 266 - 309 03/15/2022 12:25 PM EDT [facility] A/G Ratio 1.2 03/15/2022 12:25 PM EDT [facility] B/C 21(H) 10 - 20 03/15/2022 12:25 PM EDT [facility] ESTIMATED GFR 89 mL/min 03/15/2022 12:25 PM EDT [facility] Comment: ?? *The estimated Glomerular Filtration Rate(EGFR) may not be ?accurate for children under the age of 18 yrs. ??To estimate the GFR for -Americans multiply the ?result provided by 1.21. Stage 1 ? 90 mL/min or greater Stage 2 ? 60-89 mL/min Stage 3 ? 30-59 mL/min Stage 4 ? 15-29 mL/min Stage 5 ? 14 mL/min or less 03/15/2022 11:3 2 AM EDT 03/15/2022 11:48 AM EDT Narrative [facility] - 03/15/2022 12:25 PM EDT NO KNOWN ALLERGIES Je Taylor MD CHEMISTRY ORDERABLES Performing Organization Address City/State/[facility] Co de Phone Number [facility] [address] [place], [place] [phone] [place] [address] LAB [address] [place] [address] * CBC (03/15/2022 11:32 AM EDT) WBC 5.6 4.5 - 11.0 10*3/uL 03/15/2022 11:53 AM EDT [facility] RBC 4.27 4.00 - 5.20 10*6/uL 03/15/2022 11:53 AM EDT [facility] HGB 12.2 12.0 - 16.0 g/dL 03/15/2022 11:53 AM EDT [facility] HCT 37.4 33.0 - 51.0 % 03/15/2022 11:53 AM EDT [facility] MCV 87.5 80.0 - 100.0 fL 03/15/2022 11:53 AM EDT [facility] MCHC 32.7 32.0 - 36.0 g/dL 03/15/2022 11:53 AM EDT [facility] MCH 28.6 26.0 - 34.0 pg 03/15/2022 11:53 AM EDT [facility] RDW 12.8 10.7 - 18.7 % 03/15/2022 11:53 AM EDT [facility] MPV 8.0 6.5 - 10.0 fL 03/15/2022 11:53 AM EDT [facility] Platelet Cnt 280 150 - 450 10*3/uL 03/15/2022 11:53 AM EDT [facility] Differential Type Auto 022 11:53 AM EDT [facility] Neutrophils 63.0 35.0 - 66.0 % 03/15/2022 11:53 AM EDT [facility] Lymphocytes 27.5 24.0 - 44.0 % 03/15/2022 11:53 AM EDT [facility] Monocytes 7.2 2.1 - 13.3 % 03/15/2022 11:53 AM EDT [facility] Eosinophils 1.9 0.3 - 5.0 % 03/15/2022 11:53 AM EDT [facility] Basophils 0.4 0.0 - 1.0 % 03/15/2022 11:53 AM EDT [facility] Neutrophils Abs 3.5 1.5 - 8.5 10*3/uL 03/15/2022 11:53 AM EDT [facility] Lymphocytes Abs 1.5 1.1 - 5.0 10*3/uL 03/15/2022 11:53 AM EDT [facility] Monocytes Abs 0.4 0.0 - 1.4 10*3/uL 03/15/2022 11:53 AM EDT [facility] Eosinophils Abs 0.1 0.0 - 0.5 10*3/uL 03/15/2022 11:53 AM EDT [facility] Basophils Abs 0.0 0.0 - 0.1 10*3/uL 03/15/2022 11:53 AM EDT [facility] MDW 15.8 0.0 - 20.0 03/15/2022 11:53 AM EDT [facility] 03/15/2022 11:3 2 AM EDT 03/15/2022 11:38 AM EDT Narrative [facility] - 03/15/2022 11:53 AM EDT NO KNOWN ALLERGIES Je Taylor MD HEMATOLOGY ORDERABLE S Performing Organization Address City/State/[facility] Co de Phone Number [facility] [address] LAB [address] [place] [address] documented in this encounter Visit Diagnoses Diagnosis Constipation- Primary Unspecified constipation Closed head injury with brief loss of consciousness (CMS/HCC) Concussion with loss of consciousness of unspecified duration documented in this encounter Administered Medications Inactive Administered Medications - up to 3 most recent administrations Medication Order MAR Action Action Date Dose Rate Site alum-mag hydroxide-simeth (MAALOX MAX STRENGTH) 400-400-40 mg/5 mL susp 15 mL 15 mL, Oral, ONE TIME ONLY, 1 dose, On Danna 03/15/22 at 1111, STAT, SHAKE WELL BEFORE USE Given 03/15/2022 12:39 PM EDT 15 mL famotidine (PF) (PEPCID) injection 20 mg 20 mg, Intravenous, ONE TIME ONLY, 1 dose, On Danna 03/15/22 at 1111, STAT, Dilute with a saline flush and administer IV Push over at least 2 minutes Given 03/15/2022 12:20 PM EDT 20 mg lidocaine (XYLOCAINE VISCOUS) 2 % mucosal soln 15 mL 15 mL, Mucous Membrane, ONE TIME ONLY, 1 dose, On Danna 03/15/22 at 1111, STAT Given 03/15/2022 12:39 PM EDT 15 mL NS (sodium chloride 0.9%) IV bolus 1,000 mL, Intravenous, STAT, 1 dose, On Danna 03/15/22 at 1111, Administer over 61 Minutes, STAT, Wide open New Bag 03/15/2022 12:21 PM EDT 1,000 mL 983.6 mL/hr documented in this encounter Active and Recently Administered Medications Times are shown in EDT. Scheduled Medication Order 03/13/2022 03/14/2022 03/15/2022 alum-mag hydroxide-simeth (MAALOX MAX STRENGTH) 400-400-40 mg/5 mL susp 15 mL (COMPLETED) 15 mL, Oral, ONE TIME ONLY, 1 dose, On Danna 03/15/22 at 1111, STAT, SHAKE WELL BEFORE USE 1239 (Given - Provid er: Carmen Looc, CATRACHITA) famotidine (PF) (PEPCID) injection 20 mg (COMPLETED) 20 mg, Intravenous, ONE TIME ONLY, 1 dose, On Danna 03/15/22 at 1111, STAT, Dilute with a saline flush and administer IV Push over at least 2 minutes 1220 (Given - Provid er: Ernesto Phelps RN) lidocaine (XYLOCAINE VISCOUS) 2 % mucosal soln 15 mL (COMPLETED) 15 mL, Mucous Membrane, ONE TIME ONLY, 1 dose, On Danna 03/15/22 at 1111, STAT 1239 (Given - Provid er: Carmen Loco RN) morphine injection 4 mg 4 mg, Intravenous, NOW, 1 dose, On Danna 03/15/22 at 1424, STAT 1424 (Due) NS (sodium chloride 0.9%) IV bolus (COMPLETED) 1,000 mL, Intravenous, STAT, 1 dose, On Danna 03/15/22 at 1111, Administer over 61 Minutes, STAT, Wide open 1221 (New Bag - Prov ider: Ernesto Phelps RN)1322 (Stopped - Provider: Carmen Loco, CATRACHITA) ondansetron hcl (PF) (ZOFRAN) injection 4 mg 4 mg, Intravenous, ONE TIME ONLY, 1 dose, On Danna 03/15/22 at 1424, Administer over 2 Minutes, STAT 1424 (Due) documented in this encounter Care Teams Water Safety Teacher Relationship Specialty Start Date End Date Montse Montiel APRN [address] [place] [address] PCP - General Nurse Practitioner 02/06/22 Radha Griffin APRN [address] [place] [address] Nurse Practitioner Gastroenterology 02/06/22 Rosalva Diez MD [address] [place] [address] Gastroenterology 03/13/22 documented as of this encounter
--- OUTSIDE RECORDS SUMMARY | 2024-03-30 17:37 | XMS_ITS | Encounter Summary ---
Author Organization [facility] Address [address] [place] [address] Care Team Providers Care Store Coordinator Name Role Phone Montse Montiel ENVIRONMENT ARTIST Primary Care Provider [phone] Radha Griffin ENVIRONMENT ARTIST Unavailable [phone] Reason for Visit * Auth/Cert (Routine) - New Request Specialty Diagnoses / Procedures Referred By Contact Referred To Contact Gastroenterology Diagnoses Nausea Upper abdominal pain Procedures Surgical Case Request: EGD GA EGD TRANSORAL BIOPSY SINGLE/MULTIPLE GA ESOPHAGOGASTRODUODENOSCOPY TRANSORAL DIAGNOSTIC GA EGD BAND LIGATION ESOPHGEAL/GASTRIC VARICES GA EGD DILATION GASTRIC/DUODENAL STRICTURE GA EGD BALLOON DILATION ESOPHAGUS <30 MM DIAM GA DILATE ESOPHAGUS Radha Griffin, KRYS [address] [place] [address] [place] [address] Rosalva Diez MD [address] [place] [address] [address] [place] [address] Referral ID Status Reason Start Date Expiration Date V isits Requested Visits Authorized [id number] New Request 02/06/2022 02/06/2023 1 1 Encounter Details Date Type Department Care Team (Late st Contact Info) Description 03/12/2022 8:57 AM EDT Anesthesia Event Endoscopy [address] [place] [phone] Domo Ding DO [address] [place] [address] Anesthesia Record Procedure Summary Procedure Name Responsible Anesthesiologist Anesthesia Start Time Anesthesia Stop Time EGD /C BIOPSY Domo Ding DO 03/12/22 0857 03/12 0913 Events Date Time Event Comment 03/12/2022 0835 0857 An Start ETCO2 monitored and used as trend only Pt not monitored in a closed system Propofol is titrated to effect . Total titration amt to be shown at end of case 0858 An Start Data 0858 Quick Note 0903 Anesthesia Ready Intraproced ure 0908 an stop data 0913 An Stop Meds Name Total propofol (PROPOVEN) 10 mg/mL inj (PF) 20 0 mg lidocaine injection 2% 20mg/mL 50 mg LR 250 mL * Agents Name AUX O2 O2 * Blood No blood administrations on file. Lines, Drains, and Airways Type Details Placement Removal Peripheral IV Insertion: 03/12/22; 0845; 22 G; Removal:03/12/22; 922; Eva Macias RN 03/12/22 08 by Gurpreet Paz RN 03/12/22922 by Eva Macias, CATRACHITA documented in this encounter Social History Tobacco Use Types Packs/Day Years Used Date Smoking Tobacco: Never Smokeless Tobacco: Never Alcohol Use Standard Drinks/Week Comments Never 0 (1 standard drink = 0.6 oz pur e alcohol) Sex and Gender Information Value Date Recorded Sex Assigned at Not on file Gender Identity Not on file Sexual Orientation Not on file documented as of this encounter OR Notes * Anesthesia Postprocedure Evaluation - Domo Ding DO - 03/12/2022 10:00 AM EDT Anesthesia Post Evaluation Patient location during evaluation: PACU Patient participation: complete - patient participated Level of consciousness: awake and alert Pain management: adequate Airway patency: patent Anesthetic complications: no Cardiovascular status: hemodynamically stable Respiratory status: good and room air Hydration status: euvolemic Nausea: absent PONV: none Last Documented Intra-Op Anesthesia Vitals Vitals Value Taken Time NIBP 104/75 03/12/22 0906 Pulse 86 03/12/22 0908 SpO2 100 % 03/12/22 0908 Recorded Vitals 03/12/22 0912 03/12/22 0917 03/12/2292103/12/22926 BP: (!) 98/72 (!) 98/64 102/74 108/80 Pulse: 85 80 85 81 Resp: (!) 21 14 14 20 Temp: 36.8 ??C (98.3 ??F) TempSrc: Oral SpO2: 100% 100% 100% 100% * Anesthesia Preprocedure Evaluation - Domo Ding DO - 03/12/2022 8:30 AM EDT Anesthesia ROS Evaluation Patient summary reviewed and Nursing notes reviewed No history of anesthetic complications no family history of anesthetic complications COVID testing reviewed Pulmonary- negative ROS (-) asthma and not a smoker Cardiovascular- negative ROS Exercise tolerance: good (-) CAD Neuro/Psych (+) anxiety, (-) seizures GI/Hepatic/Renal (+) GERD, Endo/Other- negative ROS (-) no diabetes Cancer Anesthesia PHYS Evaluation Airway Mallampati: II TM distance: normal Neck ROM: full Dental- normal exam Pulmonary- normal exam breath sounds clear to auscultation Cardiovascular- normal exam Rhythm: regular Rate: normal Anesthesia Plan ASA 2 general TIVA intravenous induction (Patient was examined after 2 patient identifiers. Chart and labs reviewed as indicated. Past medical history and allergies were identified. Risks and benifits of anesthesia, including anesthetic plan were discussed along with common side effects. Patient agrees with plan and wishes to proceed with anesthesia. Standard ASA monitors. Please call attending if unable to maintain MAP>60 ) Anesthetic plan and risks discussed with patient Plan discussed with ROLL OFF DRIVER. Relevant Problems No relevant active problems documented in this encounter Miscellaneous Notes * Anesthesia Handoff Note - Jaimie Benedict CRNA - 03/12/2022 9:13 AM EDT Anesthesia PACU Handoff The patient arrived to dismissal. The patient's level of consciousness upon arrival is alert. The patient's respiratory/airway is adequate respiration upon arrival. The type of anesthesia used was general TIVA. The patient was not given a neuromuscular blockade. The patient is responsive to the following stimuli:arousable by verbal stimuli. BP: 113/71 (03/12 845) Pulse: 103 (03/12 845) Temp: 36.8 ??C (98.3 ??F) (03/12 845) Respirations: 20 (03/12 845) Height: 5' 8 (172.7 cm) (03/12 842) Weight: 68 kg (150 lb) (03/12 842) BMI (Calculated): 22.8 (03/12 842) SpO2: 100 % (03/12 845) NIBP: 104/75 (03/12 906) Pulse: 86 (03/12 908) Height: 5' 8 (172.7 cm) (03/12 842) Weight: 68 kg (150 lb) (03/12 842) BMI (Calculated): 22.8 (03/12 842) SpO2: 100 % (03/12 908) documented in this encounter Plan of Treatment Not on file documented as of this encounter Visit Diagnoses Not on filedocumented in this encounter Administered Medications Inactive Administered Medications - up to 3 most recent administrations Medication Order MAR Action Action Date Dose Rate Site lidocaine 20 mg/mL (2 %) injection Intravenous, PRN INTRAPROCEDURE, Starting on Sat03/12/22 at 0902, Until Sat03/12/22 at 0913, Routine Given 03/12/2022 9:02 AM EDT 50 mg LR (lactated ringers) IV infusion Intravenous, CONTINUOUS INTRAPROCEDURE, Starting on Sat03/12/22 at 0857, Until Sat03/12/22 at 09 Routine, Intra Procedure New Bag 03/12/2022 8:57 AM EDT propofoL (DIPRIVAN) injection Intravenous, PRN INTRAPROCEDURE, Starting on Sat03/12/22 at 0902, Until Sat03/12/22 at 0913 Routine, Intra Procedure Given 03/12/2022 9:08 AM EDT 180 mg Given 03/12/2022 9:02 AM EDT 20 mg documented in this encounter Care Teams Store Coordinator Relationship Specialty Start Date End Date Montse Montiel APRN [facility] [place] [phone] PCP - General Nurse Practitioner 02/06/22 Radha Griffin APRN [address] [place] [address] Nurse Practitioner Gastroenterology 02/06/22 documented as of this encounter
--- OUTSIDE RECORDS SUMMARY | 2024-03-30 17:37 | XMS_ITS | Encounter Summary ---
Author Organization [facility] Address [address] [place] [address] Care Team Providers Care Disc Ruler Operator Name Role Phone Unavailable Primary Care Provider Unavailabl e Reason for Visit * Reason Comments Other wants test Encounter Details Date Type Department Care Team (Late st Contact Info) Description 08/02/2021 5:15 PM EDT Office Visit [facility] [address] [facility] [address] [place] [id number] Jose R Tavera, PARACHUTE PANEL JOINER [address] [place] [address] Menstrual changes (Primary Dx) Social History Tobacco Use Types Packs/Day Years Used Date Smoking Tobacco: Never Smokeless Tobacco: Never Sex and Gender Information Value Date Recorded Sex Assigned at Not on file Gender Identity Not on file Sexual Orientation Not on file documented as of this encounter Last Filed Vital Signs Vital Sign Reading Time Taken Comments Blood Pressure 122/86 08/02/2021 5:25 PM EDT Pulse 112 08/02/2021 5:25 PM EDT Temperature 37 ??C (98.6 ??F) 08/02/2021 5:25 PM EDT Respiratory Rate 18 08/02/2021 5:25 PM EDT Oxygen Saturation 100% 08/02/2021 5:25 PM EDT Inhaled Oxygen Concentration - - Weight 63.8 kg (140 lb 9.6 oz) 08/02/2021 5:25 P M EDT Height 172.7 cm (5' 8 ) 08/02/2021 5:25 PM EDT Body Mass Index 21.38 08/02/2021 5:25 PM EDT documented in this encounter Progress Notes * Jose R Tavera, PARACHUTE PANEL JOINER - 08/02/2021 5:15 PM EDT [facility] Subjective: Patient ID: Lupe Cedeño is an 20 y.o. female. Chief Complaint: Chief Complaint Patient presents with ??? Other wants test The patient arrived to the clinic today requesting a test. The patient shared that she had taken two home tests that were lightly faded and she wanted to be checked her. The patient denies any changes with her menstraul cycle and shared that she is taking control. No past medical history on file. No past surgical history on file. No family history on file. Social History Tobacco Use ??? Smoking status: Never Smoker ??? Smokeless tobacco: Never Used Substance Use Topics ??? Alcohol use: Not on file ??? Drug use: Not on file No Known Allergies Medications taking before visit Disp Refills Start End ISIBLOOM 0.15-0.03 mg Tab (Taking) 05/26/2021 Sig: TAKE 1 TABLET BY MOUTH EVERY DAY Class: Historical Med nitrofurantoin, macrocrystal-mono, (MACROBID) 100 mg capsule () 10 Capsule 0 07/02/2021 07/07/2021 Sig - Route: Take 1 Capsule by mouth Twice a day for 5 days. - Oral Number of times this order has been changed since signin Order Audit Lester hydrOXYzine pamoate (VISTARIL) 25 mg capsule 30 Cap 0 12/29/2017 Sig - Route: Take 1 Cap by mouth Every 6 hours as needed for Itching. - Oral Number of times this order has been changed since signin Order Audit Lester Outpatient Medications at End Visit as of 08/02/2021 Disp Refills Start End ISIBLOOM 0.15-0.03 mg Tab (Taking) 05/26/2021 Sig: TAKE 1 TABLET BY MOUTH EVERY DAY Class: Historical Med hydrOXYzine pamoate (VISTARIL) 25 mg capsule 30 Cap 0 12/29/2017 Sig - Route: Take 1 Cap by mouth Every 6 hours as needed for Itching. - Oral Number of times this order has been changed since signin Order Audit Lester Review of Systems All other systems reviewed and are negative. Objective: BP 122/86 Pulse (!) 112 Temp 98.6 ??F (37 ??C) (Temporal) Resp 18 Ht 5' 8 (172.7 cm) Wt 63.8 kg (140 lb 9.6 oz) LMP 07/21/2021 SpO2 100% BMI 21.38 kg/m?? Physical Exam Vitals and nursing note reviewed. Constitutional: Appearance: Normal appearance. She is well-developed. HENT: Head: Normocephalic and atraumatic. Right Ear: External ear normal. Left Ear: External ear normal. Eyes: Conjunctiva/sclera: Conjunctivae normal. Cardiovascular: Rate and Rhythm: Normal rate. Pulmonary: Effort: Pulmonary effort is normal. Musculoskeletal: General: Normal range of motion. Cervical back: Normal range of motion. Skin: General: Skin is warm and dry. Neurological: Mental Status: She is alert and oriented to person, place, and time. Psychiatric: Behavior: Behavior normal. Thought Content: Thought content normal. Judgment: Judgment normal. Procedures Assessment: 1. Menstrual changes POCT Urine Test, Quant. Plan: Pt to have lab work today, results to be shared with the patient and will determine the need for further evaluation and treatment. Pt to return to the clinic as needed. Orders Placed This Encounter ??? Test, Quant. ??? POCT Urine There are no Patient Instructions on file for this visit. * Melody Erickson LPN - 08/02/2021 5:15 PM EDT Two patient identifiers verified. Performed Quick Michael Test per orders of provider. Procedure explained to patient and patient verbalized understanding. Escorted patient to restroom - then back to patient room. Obtained sample via clean catch. Patient tolerated without incident. Awaiting re sults at this time. No acute distress noted at this time. Will continue to monitor. * Leia Ocasio - 08/02/2021 5:15 PM EDT Two patient identifiers verified. Venipuncture Progress Notes Right AC: Left AC: YES Right Hand: Left Hand: Site Checked: YES Patient on anticoagulation therapy: NO Tubes drawn: X1 RED No bleeding noted at site. 2 x 2 guaze pressure dressing applied and secured with tape. Patient tolerates without incident. No acute distress noted at this time. documented in this encounter Plan of Treatment Not on file documented as of this encounter Procedures Procedure Name Priority Date/Time Associated Diagnosis Comments TEST, QUANT Routine 08/02/2021 5:40 PM EDT Menstrual changes POCT URINE TESTS Routine 08/02/2021 5:37 PM EDT Menstrual changes documented in this encounter Results * Test, Quant. (08/02/2021 5:40 PM EDT) [facility] BETA HCG <5 m[iU]/L 08/02/2021 7:53 PM EDT [facility] Comment: APPROXIMATE GESTATIONAL AGE ? APPROXIMATE hCG RANGE (mIU/ML) NON ? <5 0.2-1 WEEK ?5-50 1-2 ?? WEEKS ?50-500 2-3 ?? WEEKS ? 100-5,000 3-4 ?? WEEKS ? 500-10,000 4-5 ?? WEEKS ? 1,000-50,000 5-6 ?? WEEKS ?10,000-100,000 6-8 ?? WEEKS ?15,000-200,000 8-12 ??WEEKS ?10,000-100,000 08/02/2021 5:40 PM EDT 08/02/2021 7:28 PM EDT Narrative [facility] - 08/02/2021 7:53 PM EDT NO KNOWN ALLERGIES Jose R Tavera APRN CHEMISTRY ORDERABLES Performing Organization Address [facility] Co de Phone Number [facility] [address] LAB [address] [place] [address] * POCT Urine (08/02/2021 5:37 PM EDT) TEST URINE neg Lot Number [id number] Expiration Date 11/09/22 08/02/2021 5:37 PM EDT Jose R Tavera APRN POINT OF CARE TEST O RDERABLES documented in this encounter Visit Diagnoses Diagnosis Menstrual changes- Primary Unspecified disorder of menstruation and other abnormal bleeding from female genital tract documented in this encounter
--- OUTSIDE RECORDS SUMMARY | 2024-03-30 17:37 | XMS_ITS | Encounter Summary ---
Author Organization [facility] Address [address] [place] [address] Care Team Providers Care Road Crossing Guard Name Role Phone Montse Montiel CONCRETE PLACEMENT EQUIPMENT OPERATOR Primary Care Provider [phone] Radha Griffin CONCRETE PLACEMENT EQUIPMENT OPERATOR Unavailable [phone] Encounter Details Date Type Department Care Team (Latest Contact Info) Description 03/12/2022 Travel Social History Tobacco Use Types Packs/Day [...] on filedocumented in this encounter Care Teams Road Crossing Guard Relationship Specialty Start Date End Date Montse Montiel APRN [address] [place] [address] PCP - General Nurse Practitioner 02/06/22 Radha Griffin APRN [address] [place] [address] [address] [facility] [address] [place] [address] Nurse Practitioner Gastroenterology 02/06/22 documented as of this encounter
--- OUTSIDE RECORDS SUMMARY | 2024-03-30 17:37 | XMS_ITS | Encounter Summary ---
Author Organization [facility] Address [address] [place] [address] Care Team Providers Care Rail Car Operator Name Role Phone Unavailable Primary Care Provider Unavailabl e Encounter Details Date Type Department Care Team (Late st Contact Info) Description 12/23/2020 Orders Only [facility] [address] [place] [address] Arya Carl II, DO [address] [id number] Cough with exposure to COVID-19 virus (Primary Dx) Social History Tobacco [...] have Coronavirus / COVID-19? No / Unsure 12/23/2020 11:00 AM EDT documented as of this encounter Plan of Treatment Not on file documented as of this encounter Results * SARS-CoV-2, QL, PCR (Routine/Outpatient) (12/24/2020 5:36 PM EDT) SARS-CoV-2 RNA Undetected Undetected 12/25/2020 2:06 AM EDT [facility] Comment: Testing was performed using the [employer] Direct. Fact sheets for this Emergency Use Authorization (EUA) assay can be found at the following links: ?? For Healthcare Providers: https://www.fda.gov/media/945224/download ?? For Patients: https://www.fda.gov/media/426980/download Test Performed by: [facility],[address] [place] [address], Air Export Agent: Alex Castillo D.O.; ??CLIA#: [id number] Throat (Throat) 12/24/2020 5 :36 PM EDT 12/24/2020 9:25 PM EDT Narrative [facility] - 12/25/2020 2:06 AM EDT Symptomatic?->No Indications (select all that apply)->Asymptomatic - community/general population Was specimen collected by a [facility] steam generating powerplant mechanic?->Yes NO KNOWN ALLERGIES Arya Carl II, DO MICROBIOLOGY - G ENERAL ORDERABLES [facility] [address] [place] [address] LAB [address] [place] [address] documented in this encounter Visit Diagnoses Diagnosis Cough with exposure to COVID-19 virus- Primary Cough with exposure to COVID-19 virus documented in this encounter
--- OUTSIDE RECORDS SUMMARY | 2024-03-30 17:37 | XMS_ITS | Encounter Summary ---
Author Organization [facility] Address [address] [place] [address] Care Team Providers Care Track Superintendent Name Role Phone Dinesh Montse KRYS Primary Care Provider [phone] Radha Griffin REMOTE CONTROL MIRROR INSTALLER Unavailable [phone] Reason for Visit * Auth/Cert (Routine) - New Request Specialty Diagnoses / Procedures Referred By Contact Referred To Contact Gastroenterology Diagnoses Nausea Upper abdominal pain Procedures Surgical Case Request: EGD DC EGD TRANSORAL BIOPSY SINGLE/MULTIPLE DC ESOPHAGOGASTRODUODENOSCOPY TRANSORAL DIAGNOSTIC DC EGD BAND LIGATION ESOPHGEAL/GASTRIC VARICES DC EGD DILATION GASTRIC/DUODENAL STRICTURE DC EGD BALLOON DILATION ESOPHAGUS <30 MM DIAM DC DILATE ESOPHAGUS Radha Griffin, KRYS [address] [place] [address] [place] [address] Rosalva Diez MD [address] [place] [address] [address] [place] [address] Referral ID Status Reason Start Date Expiration Date V isits Requested Visits Authorized [id number] New Request 02/06/2022 02/06/2023 1 1 Encounter Details Date Type Department Care Team (Late st Contact Info) Description 03/12/2022 8:55 AM EDT - 03/12/2022 9:10 AM EDT Surgery Endoscopy [address] [facility] [place] [address] Rosalva Diez MD [address] [place] [address] EGD /C BIOPSY Surgery Details Date/Time Status Location OR Service Patient Class Case Class Case Type Trauma Case? 03/12/2022 8:55 AM Posted [facility] [address] [place] [address] Ambulatory Surgery Elective Panel 1 Procedure LRB Anes Op Region Wound Class Comments EGD /C BIOPSY N/A General TIVA Clean Contami nated Surgeon Surgeon Role Service Panel Rosalva Diez MD Primary Gastroenterol ogy 1 documented in this encounter Social History Tobacco [...] Sign Reading Time Taken Comments Blood Pressure 113/71 03/12/2022 8:45 AM EDT Pulse 103 03/12/2022 8:45 AM EDT Temperature 36.8 ??C (98.3 ??F) 03/12/2022 8:45 AM ED T Respiratory Rate 20 03/12/2022 8:45 AM EDT Oxygen Saturation 100% 03/12/2022 8:45 AM EDT Inhaled Oxygen Concentration - - Weight 68 kg (150 lb) 03/12/2022 8:42 AM EDT Height 172.7 cm (5' 8 ) 03/12/2022 8:42 AM EDT Body Mass Index 22.81 03/12/2022 8:42 AM EDT documented in this encounter Discharge Instructions * Discharge Instructions* Eva Macias, CATRACHITA - 03/12/2022 9:18 AM EDT 1.You should [...] Care Everywhere. * Hiatal Hernia (General Information) (Cymro) documented in this encounter Medications at Time of Discharge Medication Sig Dispensed Refills Start Date End Date ISIBLOOM 0.15-0.03 mg Tab TAKE 1 TABLET BY MOUTH EVERY DAY 05/26/2021 omeprazole (PRILOSEC) [address] capsuleIndications:Naus ea,Upper [...] tobacco. Allergies: Patient has no known allergies. CHARGE ENTRY Medications: ??? FLUoxetine (PROZAC) 20 mg tablet [...] ?'S Patient ??LAYLA CEDEÑO ?DAUGHTERS : Accessi ??[id number] ? [facility] on# ?[address] [place] [address], ?[place], [place] [address] ? The information contained in this report [...] by the treating physician. ? <Sign Out Signature> ? MIGUELANGEL PZA D.O., Pathologist CLINICAL ?ABDOMINAL PAIN, NAUSEA INFORMATION: [...] with clinical/laboratory findings. ?Trans ID: Part B: [id number] x 3 Patient: ??CEDEÑO, LAYLA DRAKE ? [facility] ?[facility] Accessio ??[id number] ?Page 1 of 1 n # Biopsy (other) 03/12/2022 9: 05 AM EDT Biopsy (other) 03/12/2022 9: 07 AM EDT Rosalva Diez MD PATHOLOGY/CYTO LOGY ORDERABLES [facility] [address] [id number] * [facility] ENDOS[facility] (03/12/2022 8:52 AM EDT) 03/12/2022 8:52 AM EDT Narrative [facility] - 03/12/2022 9:11 AM EDT Patient Name: Layla ToribioCedeño ?Procedure Date: 03/12/2022 8:52 AM ? Date [...] were monitored continuously. The Olympus ? [id number] ([id number]) endoscope was introduced through ? the mouth, [...] Initiated On: 03/12/2022 8:52 AM MRN: ? [id number] Total Procedure Duration Time 0 hours 3 minutes 45 seconds Estimated Blood Loss: ? Estimated blood loss: none. Rosalva Diez MD [facility] [address] [facility] [place] [address] * POCT Urine Test (03/12/2022 8:21 AM EDT) TEST URINE negative Lot Number [id number] Expiration Date 06-12-2023 03/12/2022 8:21 AM EDT Rosalva Diez MD POINT OF CARE TEST ORDERABLES documented in this encounter Visit Diagnoses Diagnosis Nausea Nausea alone Upper abdominal pain Abdominal pain, other specified site Nausea Nausea alone Upper abdominal pain Abdominal [...] RN) documented in this encounter Care Teams Track Superintendent Relationship Specialty Start Date End Date Montse Montiel APRN [address] [place] [address] PCP - General Nurse Practitioner 02/06/22 Radha Griffin APRN [address] [place] [address] Nurse Practitioner Gastroenterology 02/06/22 documented as of this encounter
--- OUTSIDE RECORDS SUMMARY | 2024-03-30 17:37 | XMS_ITS | Encounter Summary ---
Author Organization [facility] Address [address] [place] [address] Care Team Providers Care Inspector Scales Name Role Phone Montse Montiel KRYS Primary Care Provider [phone] Radha Griffin APRN Unavailable [phone] Rosalva Diez MD Unavailable [phone] Encounter Details Date Type Department Care Team (Late st Contact Info) Description 03/14/2022 Telephone [facility] [address] [place] [address], [address] [place] [address] Rosalva Diez MD [address] [place] [address] [place] [address] Social History Tobacco Use Types Packs/Day [...] encounter Miscellaneous Notes * Telephone Encounter - Lynette Baxter LPN - 03/14/2022 2:49 PM EDT Advised patient's that she should go to the ER for further evaluation. * Telephone Encounter - Kayla Hernandez - 03/14/2022 1:36 PM EDT Patient's is calling the clinic on behalf of his Lupe. He states that she is having much more pain since her EGD on 03/12. She is hard time eating and more pain in her midsection. He would like a call back to discuss this. He is not sure what he needs to do for her. Please advise, thankyou. documented in this encounter Plan of Treatment Not on file documented as of this encounter Visit Diagnoses Not on filedocumented in this encounter Care Teams Inspector Scales Relationship Specialty Start Date End Date Montse Montiel APRN [address] [place], [place] [address] PCP - General Nurse Practitioner 02/06/22 Radha Griffin APRN [address] [place] [address] [place] [address] Nurse Practitioner Gastroenterology 02/06/22 Rosalva Diez MD [address] [place] [address] Gastroenterology 03/13/22 documented as of this encounter
--- OUTSIDE RECORDS SUMMARY | 2024-03-30 17:37 | XMS_ITS | Encounter Summary ---
Author Organization [facility] Address [address] [place] [address] Care Team Providers Care Tetryl Boiling Tub Operator Name Role Phone Unavailable Primary Care Provider Unavailabl e Encounter Details Date Type Department Care Team (Latest Contact Info) Description 12/24/2020 Travel Social History Tobacco Use Types Packs/Day [...]
--- OUTSIDE RECORDS SUMMARY | 2024-03-30 17:37 | XMS_ITS | Encounter Summary ---
Author Organization [facility] Address [address] [place] [address] Care Team Providers Care Gambling Cashier Name Role Phone Unavailable Primary Care Provider Unavailabl e Encounter Details Date Type Department Care Team (Latest Contact Info) Description 12/23/2020 Travel Social History Tobacco Use Types Packs/Day [...]
--- OUTSIDE RECORDS SUMMARY | 2024-03-30 17:37 | XMS_ITS | Encounter Summary ---
Author Organization [facility] Address [address] [place] [address] Care Team Providers Care Plumbing Engineer Name Role Phone Montse Montiel APRN Primary Care Provider [phone] Radha Griffin APRN Unavailable [phone] Reason for Referral * Auth/Cert (Routine) - New Request Specialty Diagnoses / Procedures Referred By Contact Referred To Contact Gastroenterology Diagnoses Nausea Upper abdominal pain Procedures Surgical Case Request: EGD TX EGD TRANSORAL BIOPSY SINGLE/MULTIPLE TX ESOPHAGOGASTRODUODENOSCOPY TRANSORAL DIAGNOSTIC TX EGD BAND LIGATION ESOPHGEAL/GASTRIC VARICES TX EGD DILATION GASTRIC/DUODENAL STRICTURE TX EGD BALLOON DILATION ESOPHAGUS <30 MM DIAM TX DILATE ESOPHAGUS Radha Griffin APRN [address] [place] [address] [place] [address] Rosalva Diez MD [address] [facility] [address] [place] [address] Referral ID Status Reason Start Date Expiration Date V isits Requested Visits Authorized [id number] New Request 02/06/2022 02/06/2023 1 1 Reason for Visit * Reason Comments Nausea * Consultation (Routine) - Closed Specialty Diagnoses / Procedures Referred By Contac t Referred To Contact Gastroenterology Diagnoses Nausea Montse Montiel APRN [address] [place] [address] Rosalva Diez MD [address] [facility] [address] [facility] [address] [place] [address] Referral ID Status Reason Start Date Expiration Date V isits Requested Visits Authorized [id number] Closed Specialty Services Required 11/30/2021 11/30/2022 1 1 Encounter Details Date Type Department Care Team (Late st Contact Info) Description 02/06/2022 10:00 AM EDT Office Visit [facility] [address] [place] [address], [address] [place] [phone] Radha Griffin APRN [address] [place] [address] [place] [address] [address] [place], [place] [id number] Nausea (Primary Dx); Upper abdominal pain; Globus sensation Social History Tobacco Use Types Packs/Day Years [...] Sign Reading Time Taken Comments Blood Pressure 118/65 02/06/2022 10:46 AM EDT Pulse - - Temperature - - Respiratory Rate - - Oxygen Saturation - - Inhaled Oxygen Concentration - - Weight 63.5 kg (140 lb) 02/06/2022 10:46 AM EDT Height 172.7 cm (5' 8 ) 02/06/2022 10:46 AM EDT Body Mass Index 21.29 02/06/2022 10:46 AM EDT documented in this encounter Progress Notes * Radha Griffin APRN - 02/06/2022 10:00 AM EDT Radha Griffin APRN 02/06/22 Subjective: Patient ID: Lupe Cedeño is an 21 y.o. female who presents for initial evaluation of: nausea. Referring Provider: Montse Montiel APRN Consulting Physician: Dr. Diez. HPI Patient is a 21 y.o. y/o female referred for above. Patient c/o nausea which initially began in September 2021. Denies vomiting. She reports she has poor appetite but eating still and denies unintentional weight loss. She c/o upper abdominal pain which is constant and dull in nature. States this began at the same time as the nausea. States symptoms are worse during stress and PCP recently prescribed her medication for anxiety which is helping some. She denies history of GERD. She denies difficulty swallowing but reports globus sensation. She reports bm every 1 to 2 days. Stools soft and denies brbpr or melena. She denies history of smoking, ETOH, or illicit drug abuse, specifically marijuana use. Denies prior history of endoscopic evaluation. Medical histories as follows: Family histories as follows: Past Medical History: Diagnosis Date ??? Anxiety No past surgical history on file. No family history on file. Social History Tobacco Use ??? Smoking status: Never Smoker ??? Smokeless tobacco: Never Used Substance Use Topics ??? Alcohol use: Not on file ??? Drug use: Not on file No Known Allergies Current Outpatient Medications Medication Sig Dispense Refill ??? FLUoxetine (PROZAC) 20 mg tablet Take 20 mg by mouth Once Daily. ??? ISIBLOOM 0.15-0.03 mg Tab TAKE 1 TABLET BY MOUTH EVERY DAY ??? hydrOXYzine pamoate (VISTARIL) 25 mg capsule Take 1 Cap by mouth Every 6 hours as needed for Itching. 30 Cap 0 No current facility-administered medications for this visit. Review of Systems As per [facility]. Objective: BP 118/65 Ht 5' 8 (172.7 cm) Wt 63.5 kg (140 lb) BMI 21.29 kg/m?? Physical Exam Vitals reviewed. Constitutional: Appearance: Normal appearance. HENT: Head: Normocephalic and atraumatic. Nose: Nose normal. Eyes: General: No scleral icterus. Pupils: Pupils are equal, round, and reactive to light. Cardiovascular: Rate and Rhythm: Normal rate and regular rhythm. Pulses: Normal pulses. Heart sounds: Normal heart sounds. No murmur heard. No friction rub. No gallop. Pulmonary: Effort: Pulmonary effort is normal. Breath sounds: Normal breath sounds. No wheezing, rhonchi or rales. Abdominal: General: Bowel sounds are normal. There is no distension. Palpations: Abdomen is soft. Tenderness: There is no abdominal tenderness. There is no rebound. Musculoskeletal: Right lower leg: No edema. Left lower leg: No edema. Skin: General: Skin is warm and dry. Coloration: Skin is not jaundiced. Neurological: Mental Status: She is alert and oriented to person, place, and time. Psychiatric: Thought Content: Thought content normal. Assessment/Plan: 1. Nausea without vomiting Serum test ordered. Will prescribe Zofran 4mg twice daily as needed for n/v. EGD ordered. Covid screening pre procedure. 2. Upper abdominal pain (epigastric tenderness) Denies GERD. Will prescribe Prilosec 20mg daily. Recommend to avoid overeating or trigger foods such as carbonated/acidic beverages, spicy foods, chocolate, avoid NSaids, ETOH, tobacco, caffeine. Avoid eating 2 hours before lying down to sleep. May sleep with head elevated on pillows 30-45 degrees to help with nocturnal symptoms. 3. Globus sensation Denies history of thyroid disease and recent thyroid studies normal. EGD ordered as above. Follow up in clinic in 8 weeks to discuss results or may return sooner if needed. Radha Griffin APRN documented in this encounter Plan of Treatment Scheduled Orders Name Type Priority Associated Diagnoses Orde r Schedule Test, Quant. Lab Routine Nausea Upper abdominal pain Expected: 02/06/2022, Expires: 02/06/2023 documented as of this encounter Results * Test, Qual. (03/10/2022 2:42 PM EDT) TEST, SERUM NEGATIVE NEGATIVE 03/10/2022 10:26 PM EDT [facility] 03/10/2022 2:42 PM EDT 03/10/2022 9:52 PM EDT Narrative [facility] - 03/10/2022 10:26 PM EDT NO KNOWN ALLERGIES Radha Griffin APRN CHEMISTRY ORDERABLES Performing Organization Address [facility] de Phone Number [facility] [address] [place] [address] [facility] [address] [place] [address] * SARS-CoV-2, QL, PCR (Routine/Outpatient) (03/10/2022 2:04 PM EDT) SARS-CoV-2 RNA Undetected 03/11/2022 5:12 AM EDT [facility] Comment: Testing was performed using the [employer] Kim Direct. Fact sheets for this Emergency Use Authorization (EUA) assay can be found at the following links: ?? For Healthcare Providers: https://www.[employer]gov/media/158680/download ?? For Patients: https://www.fda.gov/media/432480/download Test Performed by: [facility],[address] [place] [address], Post Anesthesia Nurse: Alex Castillo D.O.; ??CLIA#: [id number] Throat (Throat) 03/10/2022 2 :04 PM EDT 03/10/2022 10:00 PM EDT Narrative [facility] - 03/11/2022 5:12 AM EDT Symptomatic?->No Indications (select all that apply)->Pre-op/ planned procedure NO KNOWN ALLERGIES Radha Griffin APRN MICROBIOLOGY - GENER AL ORDERABLES Performing Organization Address [facility] de Phone Number [facility] [address] [place], [place] [id number] [place] [address] [place] [address] documented in this encounter Visit Diagnoses Diagnosis Nausea- Primary Nausea alone Upper abdominal pain Abdominal pain, other specified site Globus sensation Gastrointestinal malfunction arising from mental factors Nausea Nausea alone Upper abdominal pain Abdominal pain, other specified site Globus sensation Gastrointestinal malfunction arising from mental factors documented in this encounter Care Teams Plumbing Engineer Relationship Specialty Start Date End Date Montse Montiel APRN [address] [email or web address] [address] PCP - General Nurse Practitioner 02/06/22 Radha Griffin APRN [address] [place] [address] [address] [place] [address] Nurse Practitioner Gastroenterology 02/06/22 documented as of this encounter
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
--- OUTSIDE RECORDS SUMMARY | 2024-03-30 17:38 | XMS_ITS | Patient Health Record ---
Author Organization [facility] Address [address] [place] [address] Care Team Providers Care Java Flex Developer Name Role Phone Suzi Dixon Unavailable [phone] Allergies No Known Allergies Results Component Value Reference Range Notes URINALYSIS WITHOUT MICROSCOP IC (NO CULTURE) Reviewed date:01/07/2024 09:45:46 PM Interpretation:Abnormal Performing Lab: Notes/Report: COLOR OF URINE Dark Yellow Yellow, St CLARITY OF URINE Clear Clear PH OF URINE BY AUTOMATED TEST STRIP 6.0 5.0-8.0 SPECIFIC GRAVITY OF URINE BY AUTOMATED TEST STRIP >1.030 1.005-1.03 GLUCOSE IN URINE BY AUTOMATED TEST STRIP 500 mg/dL (2+) Negative KETONES IN URINE BY AUTOMATED TEST STRIP Negative Negative BILIRUBIN, TOTAL IN URINE BY AUTOMATED TEST STRIP Negative Negative HEMOGLOBIN IN URINE BY AUTOMATED TEST STRIP Negative Negative PROTEIN IN URINE BY AUTOMATED TEST STRIP Trace Negative LEUKOCYTE ESTERASE IN URINE BY AUTOMATED TEST STRIP Negative Negative NITRITE IN URINE BY AUTOMATED TEST STRIP Negative Negative UROBILINOGEN IN URINE BY AUTOMATED TEST STRIP 0.2 E.U./dL 0.2 - 1.0 Lab specimens recei kaylene at a [facility].?See result details for the performing location information. URINALYSIS W/ CULTURE IF IND ICATED Reviewed date:01/07/2024 09:47:34 PM Interpretation:Abnormal Performing Lab: Notes/Report: In absence of clinical symptoms, the presence of pyuria, bacteria, and/or nitrites on the urinalysis result does not correlate with infection. Urine microscopic not indicated. COLOR OF URINE Dark Yellow Yellow, St CLARITY OF URINE Clear Clear PH OF URINE BY AUTOMATED TEST STRIP 6.0 5.0-8.0 SPECIFIC GRAVITY OF URINE BY AUTOMATED TEST STRIP >1.030 1.005-1.03 GLUCOSE IN URINE BY AUTOMATED TEST STRIP 500 mg/dL (2+) Negative KETONES IN URINE BY AUTOMATED TEST STRIP Negative Negative BILIRUBIN, TOTAL IN URINE BY AUTOMATED TEST STRIP Negative Negative HEMOGLOBIN IN URINE BY AUTOMATED TEST STRIP Negative Negative PROTEIN IN URINE BY AUTOMATED TEST STRIP Trace Negative LEUKOCYTE ESTERASE IN URINE BY AUTOMATED TEST STRIP Negative Negative NITRITE IN URINE BY AUTOMATED TEST STRIP Negative Negative UROBILINOGEN IN URINE BY AUTOMATED TEST STRIP 0.2 E.U./dL 0.2 - 1.0 Lab specimens recei kaylene at a [facility].?See result details for the performing location information. URINALYSIS, MICROSCOPIC ONLY Reviewed date:12/25/2023 12:10:25 AM Interpretation:culture pending Performing Lab: Notes/Report: RBC, UA 0-2 None Seen, /HPF WBC, UA 3-5 None Seen, /HPF BACTERIA, UA None Seen None Seen /HPF SQUAMOUS EPITHELIAL CELLS, UA 7-12 None Seen, /HPF HYALINE CASTS, UA 0-2 None Seen /LPF CALCIUM OXALATE CRYSTALS Present None Seen /HPF METHODOLOGY Automated Microscopy Lab spe cimens received at a [facility].?See result details for the performing location information. HEPATITIS B SURFACE ANTIGEN Reviewed date:12/27/2023 10:46:59 PM Interpretation:non reactive Performing Lab: Notes/Report: HEPATITIS B SURFACE ANTIGEN Non-Reactive Non-Reacti Lab specimens receiv ed at a [facility].?See result details for the performing location information. CBC (NO DIFF) Reviewed date:12/30/2023 10:06:54 AM Interpretation:11.2/33.5/326 Performing Lab: Notes/Report: WBC, CORRECTED 7.07 3.40-10.80 10*3/mm3 ERYTHROCYTES IN BLOOD BY AUTOMATED COUNT 3.74 3.77-5.28 10*6/mm3 HEMOGLOBIN (G/DL) IN BLOOD 11.2 12.0-15.9 g/dL HEMATOCRIT (%) BY AUTOMATED COUNT 33.5 34.0-46.6 % RBC MCV (FL) BY AUTOMATED COUNT 89.6 79.0-97.0 fL RBC MCH (PG) BY AUTOMATED COUNT 29.9 26.6-33.0 pg RBC MCHC (G/DL) BY AUTOMATED COUNT 33.4 31.5-35.7 g/dL RBC RDW (%) BY AUTOMATED COUNT 12.0 12.3-15.4 % RDW-SD 38.9 37.0-54.0 fl MEAN PLATELET VOLUME (FL) BY AUTOMATED COUNT 10.1 6.0-12.0 fL PLATELETS BY AUTOMATED COUNT 326 140-450 10*3/mm3 Lab specimens receiv ed at a [facility].?See result details for the performing location information. TREPONEMA PALLIDUM (SYPHILIS ) SCREENING CASCADE Reviewed date:12/27/2023 10:46:13 PM Interpretation:non reactive Performing Lab: Notes/Report: Reactive results will reflex RPR testing. TREPONEMAL AB TOTAL Non-Reactive Non-Reacti Lab spec imens received at a [facility].?See result details for the performing location information. HIV-1/O/2 ANTIGEN/ANTIBODY, 4TH GENERATION Reviewed date:12/27/2023 10:51:43 PM Interpretation:non reactive Performing Lab: Notes/Report: The HIV antibody/antigen combo assay is a qualitative assay for HIV that includes the p24 antigen as well as antibodies to HIV types 1 and 2. This test is intended to be used as a screening assay in the diagnosis of HIV infection in patients over the age of 2. HIV DUO Non-Reactive Non-Reacti Lab specimens r eceived at a [facility].?See result details for the performing location information. *US OB Detailed Anatomy Reviewed date:02/27/2024 02:36:25 PM Interpretation: Performing Lab: Notes/Report: [facility] Transabdominal Obstetric Study Report Name: LAYLA CEDEÑO Accession/Encounter No:[id number] : 2000 Age: 23 Gender: F Race: White Study Date: Feb 20, 2024 Study Time: 02:50 PM Reading Group: Maria Teresa Abel MD Referring Group: Suzi Dixon CNM, APRN Ordering Phys: Suzi Dixon CNM, APRN Performing User: Sapna Rosen RDMS Equipment: Affiniti 30 Study Quality: Good Indications: anatomy scan An anatomy ultrasound was performed. General Information Trimester: 2nd/3rd trimester Gestations: 1 : Intrauterine Gestational Age (Best) Best: 20w 4d Determined by: LMP ATUL: 2024-07-05 Gestational Age (Prev Study) Previous US: 20w 4d Previous Study: Nov 2023 by LMP ATUL: 2024-07-05 Gestational Age (LMP) LMP: 20w 4d First Day of LMP: 2023-09-29 ATUL: 2024-07-05 Gestational Age (Current US) Current US: 20w 5d ATUL: 2024-07-04 General Evaluation gender: not reported cardiac activity: Present Presentation/Position: Cephalic Placental cord insert: Centrally located Placental location: Posterior Biometry (Fetus A) EFW: 377g 13 oz 51% SHERRY-76 HR: 149 bpm BPD: 4.8 cm 20w 4d 47% HADLOCK-84 HC: 17.99 cm20w 3d 34% HADLOCK-84 AC: 15.66 cm20w 6d 52% HADLOCK-84 FL: 3.45 cm 20w 6d 52% HADLOCK-84 FL/HC: 0.19 HC/AC: 1.15 FL/BPD: 0.72 FL/AC: 0.22 Cisterna magna: 4.9 mm Lateral vents: 4.7 mm TCD: 1.88 cm 19w 3d Nuchal fold: 3.32 mm Anatomy (Fetus A) Midline falx: Normal Cisterna magna: Normal Choroid plexus: Normal Lateral ventricles: Normal Cerebellum: Normal CSP: Normal Orbits: Normal Face: Normal Profile: Normal Nasal bone: Normal Nose/Lips: Normal Right upper extr: Normal Right lower extr: Normal Left upper extr: Normal Left lower extr: Normal 4-chamber heart: Normal Aortic arch: Normal LVOT: Normal RVOT: Normal Cardiac rhythm: Normal Spine: Normal Stomach: Normal Diaphragm: Normal Bowel: Normal Right kidney: Normal Left kidney: Normal Bladder: Normal Abdom. cord insert: Normal Cord vessels: 3 vessel cord Findings: Anatomy: Sonographic evaluation reveals menard intrauterine in cephalic position, centrally located cord insert. Posterior placenta. cardiac activity present. growth appears normal. Maternal Anatomy: Cervix is 4.16 cm long. Conclusions: Menard IUP noted with cardiac activity. No anomalies noted at this time. growth is consistent with dating. Fluid appears normal Approved By: Maria Teresa Abel MD Approved at: February 23, 2024 07:17 PM EDT Electronically Signed on Studycast LAYLA CEDEÑO 2024-02-20 Page 1 of 1 Imaging Center - , [facility] __ __ Transabdominal Obstetric Study Report __ __ Name: LAYLA CEDEÑO Accession/Encounter No:[id number] : 2000 Age: 23 Gender: F Race: White Study Date: Feb 20, 2024 Study Time: 02:50 PM Reading Group: Maria Teresa Abel MD Referring Group: Judith Dixon CNM, APRN Ordering Phys: Suzi Dixon CNM, APRN Performing User: Modular PatternsARNOL Equipment: Affiniti 30 __ ___ Study Quality: Good Indications: anatomy scan __ ___ An anatomy ultrasoun d was performed. General Information Trimester: 2nd/3rd trimester Gestations: 1 : Intrauterine Gestational Age (Best) Best: 20w 4d Determined by: LMP ATUL: 2024-07-05 Gestational Age (Pre v Study) Previous US: 20w 4d Previous Study: Nov 2023 by LMP ATUL: 2024-07-05 Gestational Age (LMP) LMP: 20w 4d First Day of LMP: 2023-09-29 ATUL: 2024-07-05 Gestational Age (Current US) Current US: 20w 5d ATUL: 2024-07-04 General Evaluation gender: not reported cardiac activity: Present Presentation/Positio n: Cephalic Placental cord inser t: Centrally located Placental location: Posterior Biometry (Fetu s A) EFW: 377g 13 oz 51% SHERRY-76 HR: 149 bpm BPD: 4.8 cm 20w 4d 4 7% HADLOCK-84 HC: 17.99 cm20w 3d 3 4% HADLOCK-84 AC: 15.66 cm20w 6d 5 2% HADLOCK-84 FL: 3.45 cm 20w 6d 5 2% HADLOCK-84 FL/HC: 0.19 HC/AC: 1.15 FL/BPD: 0.72 FL/AC: 0.22 Cisterna magna: 4.9 mm Lateral vents: 4.7 mm TCD: 1.88 cm 19w 3d Nuchal fold: 3.32 mm Anatomy (Fetus A) Midline falx: Normal Cisterna magna: Normal Choroid plexus: Normal Lateral ventricles: Normal Cerebellum: Normal CSP: Normal Orbits: Normal Face: Normal Profile: Normal Nasal bone: Normal Nose/Lips: Normal Right upper extr: Normal Right lower extr: Normal Left upper extr: Normal Left lower extr: Normal 4-chamber heart: Normal Aortic arch: Normal LVOT: Normal RVOT: Normal Cardiac rhythm: Normal Spine: Normal Stomach: Normal Diaphragm: Normal Bowel: Normal Right kidney: Normal Left kidney: Normal Bladder: Normal Abdom. cord insert: Normal Cord vessels: 3 vess el cord __ ___ Findings: Anatomy: Sonographic evaluation reveals menard intrauterine in cephali c position, centrally located cord insert. Posterior placenta. cardiac activity present. growth appears normal. Maternal Anatomy: Cervix is 4.16 cm long. Conclusions: Menard IUP noted with cardiac activity. No anomalies noted at this time. growth i s consistent with dating. Fluid appears normal Approved By: Butch Abel MD Approved at: February 23, 2024 07:17 PM EDT Electronically Jessica lopez on Studycast LAYLA CEEDÑO 2024-02-20 Page 1 of 1 CHLAMYDIA TRACHOMATIS, NEISS ERIA GONORRHOEAE, TRICHOMONAS VAGINALIS, PCR Reviewed date:12/27/2023 10:50:57 PM Interpretation:neg x 3 Performing Lab: Notes/Report: Performed at: 01 - [address], [place] [id number] Production Technologist: Genia Ambrose MD, Phone: [phone] CHLAMYDIA TRACHOMATIS, DUC Negative Negative GONOCOCCUS BY DUC Negative Negative TRICHOMONAS VAG Negative Negative Lab specimen s received at a [facility].?See result details for the performing location information. INTERPRETATION: Reviewed date:12/27/2023 10:51:16 PM Interpretation:hep c neg Performing Lab: Notes/Report: Performed at: [address] [place] [id number] Production Technologist: Nathanael Gomez PhD, Phone: [phone] INTERPRETATION Comment Lab specimens received at a [facility].?See result details for the performing location information. Not infected with HCV unless early or acute infection is suspected (which may be delayed in an immunocompromised individual), or other evidence exists to indicate HCV infection. HEPATITIS C VIRUS (VCA) ANTI BODY CASCADE Reviewed date:12/27/2023 10:51:25 PM Interpretation:non reactive Performing Lab: Notes/Report: Performed at: [address] [place] [id number] Production Technologist: Nathanael Gomez PhD, Phone: [phone] HCV AB Non Reactive Non Reacti Lab specimens r eceived at a [facility].?See result details for the performing location information. VARICELLA ZOSTER ANTIBODY, I GG Reviewed date:12/27/2023 10:51:32 PM Interpretation:immune Performing Lab: Notes/Report: Performed at: [address] [place] [id number] Production Technologist: Nathanael Gomez PhD, Phone: [phone] VARICELLA ZOSTER IGG 2517 Immune >16 index Negative <135 A positive result generally indicates exposure to the but it is not indication of active infection or stage of disease. Equivocal 135 - 165 pathogen or administration of specific immunoglobulins, Lab specimens received at a [facility].?See result details for the performing location information. Positive >165 RUBELLA ANTIBODY, IGG Reviewed date:12/27/2023 10:51:37 PM Interpretation:immune Performing Lab: Notes/Report: Performed at: [address] [place] [id number] Production Technologist: Nathanael Gomez PhD, Phone: [phone] RUBELLA ANTIBODIES, IGG (REF) 2.03 Immune >0. index Immune >0.99 Non-immune <0.90 Lab specimens received at a [facility].?See result details for the performing location information. Equivocal 0.90 - 0.99 ABO/RH Reviewed date:12/27/2023 10:44:20 PM Interpretation:O positive Performing Lab: Notes/Report: ABO TYPE O RH TYPE Positive Lab specimens r eceived at a [facility].?See result details for the performing location information. FENTANYL, URINE Reviewed date:12/27/2023 10:44:25 PM Interpretation:Negative Performing Lab: Notes/Report: Negative Threshold: Fentanyl 5 ng/mL The normal value for the drug tested is negative. This report includes final unconfirmed screening results to be used for medical treatment purposes only. Unconfirmed results must not be used for non-medical purposes such as employment or legal testing. Clinical consideration should be applied to any drug of abuse test, particularly when unconfirmed results are used. ? ? ? FENTANYL URINE Negative Negative Lab specimens received at a [facility].?See result details for the performing location information. URINE DRUG SCREEN Reviewed date:12/27/2023 10:44:30 PM Interpretation:Negative Performing Lab: Notes/Report: Cutoff For Drugs Screened: Amphetamines 500 ng/ml Barbiturates 200 ng/ml Benzodiazepines 150 ng/ml Cocaine 150 ng/ml Methadone 200 ng/ml Opiates 100 ng/ml Phencyclidine 25 ng/ml THC 50 ng/ml Methamphetamine 500 ng/ml Tricyclic Antidepressants 300 ng/ml Oxycodone 100 ng/ml Buprenorphine 10 ng/ml The normal value for all drugs tested is negative. This report includes unconfirmed screening results, with the cutoff values listed, to be used for medical treatment purposes only. Unconfirmed results must not be used for non-medical purposes such as employment or legal testing. Clinical consideration should be applied to any drug of abuse test, particularly when unconfirmed results are used. THC URINE Negative Negative PHENCYCLIDINE SCREEN URINE Negative Negative COCAINE, URINE Negative Negative METHAMPHETAMINE Negative Negative OPIATES URINE Negative Negative AMPHETAMINE SCREEN URINE Negative Negative BENZODIAZEPINE SCREEN, URINE Negative Negative TRICYCLIC ANTIDEPRESSANTS SCREEN URINE Negative Negative METHADONE SCREEN, URINE Negative Negative BARBITURATE SCREEN, URINE Negative Negative OXYCODONE SCREEN URINE Negative Negative BUPRENORPHINE Negative Negative Lab specimens received at a [facility].?See result details for the performing location information. URINE CULTURE Reviewed date:12/27/2023 10:51:03 PM Interpretation:no growth Performing Lab: Notes/Report: URINE CULTURE No growth Lab specimens received at a [facility].?See result details for the performing location information. *US OB Complete Transabdomin al/Vaginal Reviewed date:11/28/2023 08:31:32 PM Interpretation: Performing Lab: Notes/Report: [facility] Transvaginal Obstetric Study Report Name: LAYLA CEDEÑO Accession/Encounter No:[id number] : 2000 Age: 23 Gender: F Race: White Study Date: Nov 26, 2023 Study Time: 11:06 AM Reading Group: Maria Teresa Abel MD Referring Group: Suzi Dixon CNM, APRN Ordering Phys: Suzi Dixon CNM, APRN Performing User: Marcela Sheets RDMS Equipment: Affiniti 30 Study Quality: Good Indications: Estimation of gestational age A 1st Trimester ultrasound was performed. General Information Trimester: 1st trimester Gestations: 1 : Intrauterine Gestational Age (Best) Best: 8w 2d Determined by: LMP ATUL: 2024-07-05 Gestational Age (LMP) LMP: 8w 2d First Day of LMP: 2023-09-29 ATUL: 2024-07-05 Gestational Age (Current US) Current US: 7w 6d Current US ATUL by: ATUL: 2024-07-08 General Evaluation cardiac activity: Present Yolk sac: Present 4 mm pole: Present Biometry (Fetus A) HR: 162 bpm [place]-rump length:15.18 mm7w 6d 56% Findings: Anatomy: Sonographic evaluation reveals menard intrauterine . cardiac activity present. growth appears normal. Conclusions: Menard IUP noted with cardiac activity. Size is consistent with LMP dating. Uterus, ovaries and bilateral adnexa appear normal. Approved By: Maria Teresa Abel MD Approved at: November 26, 2023 08:34 PM EDT Electronically Signed on Studycast LAYLA CEDEÑO 2023-11-26 Page 1 of 1 Imaging Center - , [facility] __ __ Transvaginal Obstetr ic Study Report __ __ Name: LAYLA CEDEÑO Accession/Encounter No:[id number] : 2000 Age: 23 Gender: F Race: White Study Date: Nov 26, 2023 Study Time: 11:06 AM Reading Group: Maria Teresa Abel MD Referring Group: Judith Dixon CNM, APRN Ordering Phys: Suzi Dixon CNM, APRN Performing User: Marcela Sheets RDMS Equipment: Affiniti 30 __ ___ Study Quality: Good Indications: Estimation of gestational age __ ___ A 1st Trimester ultrasound was performed. General Information Trimester: 1st trimester Gestations: 1 : Intrauterine Gestational Age (Best) Best: 8w 2d Determined by: LMP ATUL: 2024-07-05 Gestational Age (LMP) LMP: 8w 2d First Day of LMP: 2023-09-29 ATUL: 2024-07-05 Gestational Age (Current US) Current US: 7w 6d Current US ATUL by: ATUL: 2024-07-08 General Evaluation cardiac activity: Present Yolk sac: Present 4 mm pole: Present Biometry (Fetu s A) HR: 162 bpm [place]-rump length:15.18 mm7w 6d 56% __ ___ Findings: Anatomy: Sonographic evaluation reveals menard intrauterine . cardiac activity present. growth appears normal. Conclusions: Menard IUP noted with cardiac activity. Size is consistent with LMP dating. Uterus, ovaries and bilateral adnexa appear normal. Approved By: Butch Abel MD Approved at: November 08:34 PM EDT Electronically Jessica john on Studycast LAYLA CEDEÑO 2023-11-26 Page 1 of 1 Reason For Referral No Information Medications Medication SIG (Take, Route, Frequency, Duration) Notes Start Date End Date Status Unisom Not-Taking Promethazine HCl 25 MG 1 tablet as neede d Orally every 6 hours as needed 12/24/2023 Not-Taking Vitamins 28-0.8 MG TAKE 1 TABLET BY MOUTH ONCE DAILY Oral for 30 Days Active Ondansetron 8 MG 1/2-1 tablet on the tongue and allow to dissolve as needed Orally every 8 hours as needed 12/24/2023 Not-Taking Vitamin C 100 MG 1 tablet Orally Once a day for 30 days 12/30/2023 Active Vitamin B-6 25 MG 1 tablet Orally Once a day Active Ferrous Sulfate 325 (65 Fe) MG 1 tablet Orally Once daily for 30 days 12/30/2023 Active Immunizations Vaccine Route Administration Date Status Comme nts SARS-COV-2 Unknown 05/13/2021 Administered 2021 Tdap Unknown 05/13/2017 Administered 2017 Social History Sex Assigned At : Social History Observation Description Sex Assigned At Female Problems Problem Type SNOMED Code ICD Code Onset Dates Problem Status W/U Status Risk Notes Problem [id number] Encounter for supervision of other normal , second trimester (Z34.82) Active confirmed Vital Signs Weight 161.0 lbs 03/19/2024 Encounters Encounter Location Date Provider Diagnosis [facility] [address] [facility] [address] [place] [address] 11/25/2023 Suzi Dixon [facility] [address] [facility] [address] [place] [address] 11/26/2023 Suzi Dixon [facility] [address] [facility] [address] [place] [address] 11/28/2023 Suzi Dixon [facility] [address] [facility] [address] [place] [address] 12/02/2023 Suzi Dixon Missed menses N92.6 [facility] [address] [facility] [address] [place] [address] 12/30/2023 Suzi Dixon [facility] [address] [facility] [address] [place] [address] 02/10/2024 Suzi Dixon Encounter for screening for malformations Z36.3 [facility] [address] [facility] [address] [place] [address] 11/26/2023 Suzi Dixon Missed menses N92.6 ; Encounter for supervision of other normal , first trimester Z34.81 and 8 weeks gestation of Z3A.08 [facility] [address] [facility] [address] [place] [address] 12/24/2023 Suzi Dixon 12 weeks gestation o f Z3A.12 and Encounter for supervision of other normal in first trimester Z34.81 [facility] [address] [facility] [address] [place] [address] 01/21/2024 Suzi Dixon Encounter for supervision of other normal , second trimester Z34.82 and 16 weeks gestation of Z3A.16 [facility] [address] [facility] [address] [place] [address] 02/20/2024 Suzi Dixon Encounter for supervision of other normal , second trimester Z34.82 and 20 weeks gestation of Z3A.20 [facility] [address] [facility] [address] [place] [address] 03/19/2024 Suzi Dixon Encounter for supervision of other normal , second trimester Z34.82 and 24 weeks gestation of Z3A.24 [facility] [address] [facility] [address] [place] [address] 02/20/2024 Suzi Dixon Encounter for screening for malformations Z36.3 [facility] [address] [facility] [address] [place] [address] 11/26/2023 Suzi Dixon Missed menses N92.6 Assessments Encounter Date Diagnosis (ICD Code) Assessment Notes Treat ment Notes Treatment Clinical Notes 11/26/2023 Encounter for supervision of other normal , first trimester (ICD-10 - Z34.81) 11/26/2023 Missed menses (ICD-1 0 - N92.6) 11/26/2023 Missed menses (ICD-1 0 - N92.6) 12/24/2023 Encounter for supervision of other normal in first trimester (ICD-10 - Z34.81) 12/24/2023 12 weeks gestation o f (ICD-10 - Z3A.12) 01/21/2024 16 weeks gestation o f (ICD-10 - Z3A.16) 01/21/2024 Encounter for supervision of other normal , second trimester (ICD-10 - Z34.82) 12/02/2023 Missed menses (ICD-1 0 - N92.6) 02/20/2024 Encounter for screening for malformations (ICD-10 - Z36.3) 02/20/2024 20 weeks gestation o f (ICD-10 - Z3A.20) 02/20/2024 Encounter for supervision of other normal , second trimester (ICD-10 - Z34.82) 03/19/2024 24 weeks gestation o f (ICD-10 - Z3A.24) 03/19/2024 Encounter for supervision of other normal , second trimester (ICD-10 - Z34.82) 02/10/2024 Encounter for screening for malformations (ICD-10 - Z36.3) 11/26/2023 8 weeks gestation of (ICD-10 - Z3A.08) Plan Of Treatment Pending Test Test Name Order Date CBC 03/19/2024 Gest. Diabetes Screen 1 Hr Glucose 03/19 Syphilis T Pallidium Screening [place] 1 05/19/2023 Next Appt Details Provider Name:Suzi Dixon , 04/13/2024 09:00:00 AM, [address] [facility], [address] [place] [address], [phone], Provider Name:Suzi Dixon , 04/27/2024 03:15:00 PM, [address] [facility], [facility] [address], [address], Provider Name:Suzi Dixon , 05/11/2024 03:15:00 PM, [address], [address], [place], [address], Provider Name:Moises Loya, 05/25/2024 03:15:00 PM, [address], [address], [place], [address], Provider Name:Moises Loya, 06/08/2024 03:15:00 PM, [address], [address], [place], [address], Provider Name:Moises Loya, 06/16/2024 03:15:00 PM, [address], [address], [place], [address], Provider Name:Moises Loya, 06/23/2024 03:15:00 PM, [address], [address], [place], [address], Provider Name:Moises Loya, 06/30/2024 03:15:00 PM, [address], [address], [place], [address], Provider Name:Moises Loya, 07/07/2024 03:15:00 PM, [address], [address], [place], [address], Insurance Providers Payer Name Payer Address Payer Phone Subscriber Number Group Number Insured Name Patient Relationship to Insured Coverage Start Date Coverage End Date [employer] [facility] [address] [address] [place], [place] [id number] Layla Cedeño Self - patient is the insured Medical (General) History Medical History History ICD Code Anxiety Surgical History Surgery Date(Month/Year) Upper Endoscopy
--- OUTSIDE RECORDS SUMMARY | 2024-03-30 17:38 | XMS_ITS ---
Author Organization [facility] Address [address] [place] [address] Care Team Providers Care Anesthesia Attending Name Role Phone Zack Suzi Unavailable [phone] Allergies No Known Allergies REASON FOR VISIT 20 wks ultrasound @ 2:30pm Medications Medication SIG (Take, Route, Frequency, Duration) Notes Start Date End Date Status Ferrous Sulfate 325 (65 Fe) MG 1 tablet Orally Once daily for 30 days 12/30/2023 Active Vitamin C 100 MG 1 tablet Orally Once a day for 30 days 12/30/2023 Active Ondansetron 8 MG 1/2-1 tablet on the tongue and allow to dissolve as needed Orally every 8 hours as needed 12/24/2023 Active Promethazine HCl 25 MG 1 tablet as neede d Orally every 6 hours as needed 12/24/2023 Active Vitamins 28-0.8 MG TAKE 1 TABLE T BY MOUTH ONCE DAILY Oral for 30 Days Active Vitamin B-6 25 MG 1 tablet Orally Once a day Active Unisom Active Social History Sex Assigned At : Social History Observation Description Sex Assigned At Female Vital Signs Weight 154.6 lbs 02/20/2024 Encounters Encounter Location Date Provider Diagnosis [facility] [address] [place] [address] 02/20/2024 Suzi Dixon Encounter for supervision of other normal , second trimester Z34.82 and 20 weeks gestation of Z3A.20 Assessments Encounter Date Diagnosis (ICD Code) Assessment Notes Treat ment Notes Treatment Clinical Notes 02/20/2024 Encounter for supervision of other normal , second trimester (ICD-10 - Z34.82) 02/20/2024 20 weeks gestation of (ICD-10 - Z3A.20) Plan Of Treatment Next Appt Details Follow Up: 4 Weeks, 4 Weeks, Reason: Provider Name:Suzi Dixon , 04/13/2024 09:00:00 AM, [address], [address], [place], [address], Provider Name:Suzi Dixon , 04/27/2024 03:15:00 PM, [address], [address], [place], [address], Provider Name:Suzi Dixon , 05/11/2024 03:15:00 PM, [address], [address], [place], [address], Provider Name:Moises Loya, 05/25/2024 03:15:00 PM, [address], [address], [place], [address], Provider Name:Moises Loya, 06/08/2024 03:15:00 PM, [address], [address], [place], [address], Provider Name:Moises Loya, 06/16/2024 03:15:00 PM, [address], [address], [place], [address], Provider Name:Moises Loya, 06/23/2024 03:15:00 PM, [address], [address], [place], [address], Provider Name:Moises Loya, 06/30/2024 03:15:00 PM, [address], [address], [place], [address], Provider Name:Moises Loya, 07/07/2024 03:15:00 PM, [address], [place], [address], Progress Notes * Lupe CEDEÑO KDOB: 0 (23 yo F)Acc No.[id number]:02/20/2024 Progress Note Patient:?Lupe CEDEÑO Provider:?Suzi Dixon CNM, BLEACHING MACHINE OPERATOR :2000???Age:23 Y???Sex:Female D ate:02/20/2024 Address:[address] [place], [place] [id number] Subjective: * Chief Complaints: * ???20 wks ultrasound @ 2:30p m * Medical History:? * Support Associate History:?Pap Smear History: ?Date of Last Pap/HPV:?Last Pap/HPV Results:?Normal Pap ?History of Abnormal Pap [...] partners (lifetime)?No ?Age of first sexual activity?20 ???SERVICE ORDER DISPATCHER Medical Hx:?None noted.?Last Preventive Screening Labs:?2023.?Last Pelvic [...] History:?Upper Endo scopy * Hospitalization/Major Diagno stic Procedure:?Denies Past Hospitalization * Family History:?Mother: diag nosed with Diabetes mellitus without mention of complication, type II or unspecified type, not stated as uncontrolled.?Maternal Grand Mother: diagnosed with Diabetes mellitus without mention of complication, type II or unspecified type, not stated as uncontrolled.? Mental Illness: Mother, Sibling, Maternal Grandmother; Nothing else documented. * Social History:?Do you have any restorationist or culture customs that your provider should [...] MG Tablet 1 tablet Orally Once daily Ondansetron 8 MG Tablet Disintegrating 1/2-1 tablet on the tongue and allow to dissolve as needed Orally every 8 hours as needed Vitamins 28-0.8 MG Tablet TAKE 1 TABLET BY MOUTH ONCE DAILY Oral Promethazine HCl 25 MG Tablet 1 tablet as needed Orally every 6 hours as needed Unisom Vitamin B-6 25 MG Tablet 1 tablet Orally Once a day Vitamin C 100 MG Tablet 1 tablet Orally Once a day Taking Ferrous Sulfate 325 (65 Fe) MG Tablet 1 tablet Orally Once daily Taking Ondansetron 8 MG Tablet Disintegrating 1/2-1 tablet on the tongue and allow to dissolve as needed Orally every 8 hours as needed Taking Vitamins 28-0.8 MG Tablet TAKE 1 TABLET BY MOUTH ONCE DAILY Oral Taking Promethazine HCl 25 MG Tablet 1 tablet as needed Orally every 6 hours as needed Taking Unisom Taking Vitamin B-6 25 MG Tablet 1 tablet Orally Once a day Taking Vitamin C 100 MG Tablet 1 tablet Orally Once a day * Allergies:?N.K.D.A.yes[Aller gies Verified] Objective: * Vitals:?Wt: 154.6 lbs. Assessment: * Assessment: 1.?Encounter for supervision of other normal , second trimester - Z34.82 (Primary)???2.?20 weeks gestation of - Z3A.20??? Plan: * Treatment: * Procedure Codes:?jessie Return OB [id number] HEDIS SUBSEQUENT CARE * Follow Up:?4 Weeks, 4 Weeks * Billing Information: * Visit Code:? * Procedure Codes:? jessie Return OB Visit. [id number] HEDIS SUBSEQUENT CARE. * Sign off status: Completed Visit Status:?CHK (Check Out ) true * Provider:?Suzi Dixon CNM, BLEACHING MACHINE OPERATOR Date:? 02/20/2024 Generated for Julianne ariza/Yanelis/eTransmitting on:?03/30/2024 05:37 PM EST
--- OUTSIDE RECORDS SUMMARY | 2024-03-30 17:38 | XMS_ITS ---
Author Organization [facility] Address [address] [place] [address] Care Team Providers Care First Sampler Name Role Phone Zack Suzi Unavailable [phone] Results Component Value Reference Range Notes *US OB Detailed Anatomy Reviewed date:02/27/2024 02:36:25 PM Interpretation: Performing Lab: Notes/Report: [facility] Transabdominal Obstetric Study Report Name: LAYLA CEDEÑO Accession/Encounter No:[id number] : 2000 Age: 23 Gender: F Race: [...] 1 of 1 [facility] - , [facility] [place] [facility] ____ Transabdominal Obste tric Study Report ____ Name: LAYLA CEDEÑO Accession/Encounter No:[id number] : 2000 Age: 23 Gender: F Race: White Study Date: Feb 20, 2024 Study Time: 02:50 PM Reading Group: Sakina Abel MD Referring Group: Judith Dixon CNM, APRN Ordering Phys: Suzi Dixon CNM, APRN Performing User: Vicente Rosen RDMS Equipment: Affiniti 30 Study Quality: Good Indications: anatomy scan An anatomy ultrasoun d was performed. General [...] cardiac activity: Present Presentation/Position: Cephalic Placental cord inser t: Centrally located Placental location: Posterior Biometry (Fetus [...] Cord vessels: 3 vessel cord Findings: Anatomy: Sonog raphic evaluation reveals menard intrauterine in cephali c position, centrally located cord insert. Posterior placenta. cardiac activity present. growth appears normal. Maternal Anatomy: Ce rvix is 4.16 cm long. Conclusions: Menard IUP noted with cardiac activity. No anomalies noted at this time. growth i s consistent with dating. Fluid appears normal Approved By: Maria Teresa Abel MD Approved at: February 23, 2024 07:17 PM EDT Electronically Jessica d on Study[employer] LAYLA CEDEÑO 2024-02 Page 1 of 1 REASON FOR VISIT 20 wks fas lmp 5-19 No NIPT in chart. mf Social History Sex Assigned At : Social History Observation Description Sex Assigned At Female Encounters Encounter Location Date Provider Diagnosis [facility] [address] [facility] [address] [place] [address] 02/20/2024 Suzi Dixon Encounter for screening for malformations Z36.3 Assessments Encounter Date Diagnosis (ICD Code) Assessment Notes Treat ment Notes Treatment Clinical Notes 02/20/2024 Encounter for screening for malformations (ICD-10 - Z36.3) Plan Of Treatment Next Appt Details Provider Name:Suzi Dixon , 04/13/2024 09:00:00 AM, [address], [address], [place], [address], Provider Name:Suzi Dixon , 04/27/2024 03:15:00 PM, [address], [address], [place], [address], Provider Name:Suzi Dixon , 05/11/2024 03:15:00 PM, [address], [address], [place], [address], Provider Name:Moises Loya, 05/25/2024 03:15:00 PM, [address], [address], [place], [address], Provider Name:Moises Loya, 06/08/2024 03:15:00 PM, [address], [address], [place], [address], Provider Name:Moises Loya, 06/16/2024 03:15:00 PM, [address], [address], [place], [address], Provider Name:Moises Loya, 06/23/2024 03:15:00 PM, [address], [address], [place], [address], Provider Name:Moises Loya, 06/30/2024 03:15:00 PM, [address], [address], [place], [address], Provider Name:Moises Loya, 07/07/2024 03:15:00 PM, [address], [address], [place], [address], Progress Notes * Layla CEDEÑO KDOB: 0 (23 yo F)Acc No.[id number]:02/20/2024 Progress Note Patient:?Layla CEDEÑO Provider:?Suzi Dixon CNM, PEDIATRIC ALLERGIST :2000???Age:23 Y???Sex:Female D ate:02/20/2024 Address:[address] [facility] [address], [address], [id number] Subjective: * Chief Complaints: * ???1. 20 wks fas lmp 5-19 No NIPT in chart. mf. * Medical History:? Objective: * Vitals:? Assessment: * Assessment: 1.?Encounter for s creening for malformations - Z36.3 (Primary)??? Plan: * Treatment: * Billing Information: * Visit Code:? * Procedure Codes:? * Electronic signature of Ana Lilia Dixon CNM on 03/30/2024 at 05:37 PM EST Sign off status: Pending Visit Status:?CHK (Check Out ) * Provider:?Suzi Dixon CNM, PEDIATRIC ALLERGIST Date:? 02/20/2024 Generated for Julianne ariza/Yanelis/eTransmitting on:?03/30/2024 05:37 PM EST
[2024-03-30 17:45] LABS: Basophils % 0.2 % (0.1-2.0); Eosinophils # 0.1 K/mm3 (0.0-0.4); Eosinophils % 0.8 % (0.1-12.0); Hematocrit 33.8 % (37.0-47.0); Hemoglobin 11.8 g/dL (12.2-16.2); Lymphocytes # 1.8 K/mm3 (0.7-4.5); Lymphocytes % 21.3 % (10-50); Mean Corpuscular HGB Conc 34.9 g/dL (31.8-35.4); Mean Corpuscular Volume 91.5 fl (81-99); Monocytes # 0.6 K/mm3 (0.1-1.0); Monocytes % 6.8 % (1.7-9.3); Neutrophils % 70.9 % (37.0-80.0); Platelet Count 292 K/mm3 (142-424); Red Cell Distribution Width 13.7 % (11.5-17.5); White Blood Count 8.5 K/mm3 (4.8-10.8)
[2024-03-30 17:48] LABS: Chloride 106 mmol/L (98-107)
[2024-03-30 17:49] LABS: Albumin Level 4.1 g/dl (3.5-5.0); Potassium 3.7 mmoL/L (3.5-5.1); Sodium 136 mmol/L (136-145)
[2024-03-30 17:51] LABS: Blood Urea Nitrogen 13 mg/dl (7-17)
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
[2024-03-30 17:52] LABS: Alanine Aminotransferase 19 U/L (12-78); Alkaline Phosphatase 45 U/L (38-126); Aspartate Amino Transferase 34 U/L (14-36); Bilirubin,Total 0.4 mg/dl (0.2-1.3); Carbon Dioxide 20 mmol/L (22.0-30.0); Glucose 102 mg/dl (74-100); Total Protein,Serum 7.4 g/dl (6.3-8.2)
[2024-03-30 18:06] VITALS: BMI 24.3
--- NOTE | 2024-03-30 18:11 | PC.NURSE ---
Report called to Eva DOMÍNGUEZ
[2024-03-30] MEDS: ACETAMINOPHEN 500MG TAB 1000 MG PO (18:15)
[2024-03-30 18:25] LABS: Albumin/Globulin Ratio 1.2 (1.1-1.8); Anion Gap 13.7 mEq/L (5-15); Creatinine Clearance Estimated 142 mL/min (50-200); Estimated Glomerular Filt Rate 103 ml/min (>60); GFR (African American) 124 ML/MIN (>60); Globulin 3.3 g/dL (1.3-3.2)
[2024-03-30 18:41] VITALS: BMI 22.8
[2024-03-30 18:51] VITALS: BMI 22.8
--- NOTE | 2024-03-30 19:21 | PC.NURSE ---
OB notified pt is ready to transfer.
[2024-03-30 19:27] VITALS: BP 124/78; PULSE 106; RESP 18; TEMP 36.6
[2024-03-30 20:00] VITALS: BP 124/78; PULSE 105; RESP 18; TEMP 36.6; O2SAT 100; BMI 22.8
[2024-03-30 20:16] LABS: Microscopic, Urine URINE MICROSCOPIC (MICROSCOPIC)
[2024-03-30 20:23] LABS: Appearance,Urine CLEAR (Clear); Bilirubin,Urine Negative (Negative); Blood, Urine Negative (Negative); Color,Urine YELLOW (Yellow); Glucose,Urine (UA) 1+ (Negative); Ketones,Urine Negative (Negative); Leukocyte Esterase,Urine 1+ (Negative); Nitrate,Urine Negative (Negative); Protein,Urine Negative (Negative); Urobilinogen,Urine 0.2 EU/dl (0.2)
[2024-03-30 20:47] LABS: Barbiturates Screen,Urine Negative ng/ml (<200); Benzodiazepines Screen,Urine Negative ng/ml (<200)
[2024-03-30 20:48] LABS: Amphetamine/Metha Screen,Urine Negative ng/ml (<1000); Cocaine Screen,Urine Negative ng/ml (<300)
[2024-03-30 20:49] LABS: Methadone Screen,Urine Negative ng/ml (<300)
[2024-03-30 20:50] LABS: Cannabinoid Screen,Urine Negative ng/ml (<50); Opiate Screen,Urine Negative ng/ml (<300)
[2024-03-30 20:51] LABS: Phencyclidine Screen,Urine Negative ng/ml (<25)
[2024-03-30 21:02] LABS: Bacteria,Urine 3+ /lpf; RBC,Urine Occasional #/hpf (0-3); Squamous Epithelial Cell,Urine 20-50 #/hpf (0-5); WBC,Urine 20-50 #/hpf (0-3)
[2024-03-30 22:03] LABS: Fetal Membrane Rupture (Rapid) Negative (Negative)
[2024-03-31 01:49] LABS: HCG,Quantitative 25595 mIU/ml (0-5.42)
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
[2024-03-31 08:17] VITALS: BP 109/66; PULSE 100; RESP 18; TEMP 36.9; O2SAT 99
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
== END 2024-03-31 10:30 | disposition home or self-care (01) ==
LOC: ER 17:49 → OB 18:58
PROVIDERS: Admitting Provider Nurse Practitioner Obstetrics & Gynecology; Emergency Provider Emergency Medicine; Visit Provider Nurse Practitioner Obstetrics & Gynecology
DX: S70.212A Abrasion, left hip, initial encounter (principal); S90.812A Abrasion, left foot, initial encounter; Z33.1 Pregnant state, incidental; Z3A.26 26 weeks gestation of pregnancy; V03.90XA Pedestrian on foot injured in collision with car, pick-up truck or van, unspecified whether traffic or nontraffic accident, initial encounter; Y92.414 Local residential or business street as the place of occurrence of the external cause
CPT/HCPCS: 59025; 76816; 80053; 80307; 81001; 84112; 84702; 85025; 86850; 87086; G0378; G0463